=== PATIENT | male | born 1945 | race Caucasian/White ===

== ENCOUNTER → 2017-02-27 | Outpatient (REF) ==
[~2017-02-27] MED LIST: ACET50TAOT PO; ACIDTAB16 PO; AMIT25TA PO; AMLO10TA PO; AMLO10TA2 PO; ASPI1TAB PO; ATOR40TA PO; FOLI1TAB2 PO; HYDR-3713 PO; HYDR25TAB PO; LEVA500T PO; METO50TA2 PO; NICO21PAT TD; THIA100T PO; VITA400T13 PO
[2017-02-27 13:56] LABS: AMYLASE 48 U/L (25-115)
--- NOTE | 2017-02-28 02:33 | REP ---
Clinical: Left-sided chest pain. Technique: PA and lateral. Comparison: 08/22/2015. Findings: Mediastinum and cardiac silhouette are within normal limits and stable. Lung walker demonstrate chronic interstitial changes along with scattered calcified granulomata. Subtle basilar atelectasis cannot be excluded. No focal consolidation, effusion, or pneumothorax. Skeletal structures demonstrate age-related osteopenia and degenerative changes. Impression: Chronic-appearing changes. Cannot exclude trace basilar atelectasis. Signed by Thiago Bloom MD 02/28/2017 02:24 A
== END ==
LOC: M RAD 12:38
PROVIDERS: ATTEND Nurse Practitioner Family
DX: R10.12 Left upper quadrant pain (principal)

== ENCOUNTER → 2018-07-11 | Outpatient (CLI) | payer OTHER, MEDICARE | LOC: M CARPUL 09:36 | DX: R01.1 Cardiac murmur, unspecified (principal) | CPT/HCPCS: 93306 ==

== ENCOUNTER 2019-07-20 11:54 | Inpatient (IN) | payer OTHER, MEDICARE ==
[~2019-07-20] VITALS: Ht 172.7 cm; Wt 55.5 kg
[~2019-07-20 11:54] MED LIST changes: +ACET500T15 PO; -ACET50TAOT PO; -ACIDTAB16 PO; +ACIDTAB7 PO; -AMLO10TA2 PO; +AMLO10TA5 PO; -ASPI1TAB PO; +ASPI81TA26 PO; -ATOR40TA PO; +ATOR40TA75 PO; +FOLI1TAB11 PO; -FOLI1TAB2 PO; +HYDR-2541 PO; -HYDR25TAB PO; +LEVA1TAB2 PO; -LEVA500T PO; -METO50TA2 PO; +METO50TA7 PO; +NICO21DI3 TD; -NICO21PAT TD; -THIA100T PO; +THIA100T7 PO
[2019-07-20] MEDS ORDERED: NS 1,000 ML IV ONE (13:00)
[2019-07-20] MEDS ORDERED: dexameTHASONE 20 MG/5 ML VIAL (J1100) IV ONE (13:00)
[2019-07-20] MEDS ORDERED: IPRATROPIUM 0.5MG/ALBUTEROL 2.5MG INH SOL UD 3ML (DUONEB)(J7620) NEB ONE (13:00)
[2019-07-20] MEDS ORDERED: ALBUTEROL SULFATE 2.5 MG/0.5 ML INH NEB SOLN INH ONE (13:00)
[2019-07-20 13:19] LABS: ALBUMIN 2.9 GM/DL (3.2-5.2); BILIRUBIN,DIRECT 0.2 MG/DL (0.0-0.2); BILIRUBIN,TOTAL 0.6 MG/DL (0.2-1.0); C REACTIVE PROTEIN QUANTITATIV 7.14 MG/DL (0.00-0.30); CK-MB VALUE MASS 7.3 NG/ML (<3.6); MAGNESIUM LEVEL 1.8 MG/DL (1.8-2.4); MB/CK RELATIVE INDEX 5.66 (< OR =4); THYROID STIMULATING HORMONE 0.908 uIU/ML (0.358-3.740); TROPONIN I 0.11 NG/ML (< 0.10)
[2019-07-20 13:21] LABS: INR 1.12; PROTHROMBIN TIME 14.1 SECONDS (11.8-14.0)
[2019-07-20 13:22] LABS: PARTIAL THROMBOPLASTIN TIME 43.2 SECONDS (25.0-38.4)
[2019-07-20] MEDS ORDERED: ISOVUE-370 76% 100ML VIAL (Q9967) As Ordered ONE (13:43)
--- NOTE | 2019-07-20 14:01 | REP ---
CHEST, SINGLE VIEW: Single view of the chest is performed. COMPARISON: 02/27/2017. There is mild elevation of the left hemidiaphragm. There is a mass density in the left apex approximately 6 cm in diameter. Otherwise no infiltrate is seen in either lung. Heart is upper limits of normal in size. There is calcification of the thoracic aorta. IMPRESSION: Large left apical mass. Electronically Signed by Marcelo Diallo MD 07/20/2019 06:04 P
--- NOTE | 2019-07-20 14:04 | ECGEPIP ---
[facility] - ED Test Date: 2019-07-20 Pat Name: KEELY STALLINGS Department: Room: - Gender: Male Hims Clerk: PMO : 1945 Requested By: FORTUNATO Lozano Order Number: [id number] Reading MD: Luna Moreira Measurements Intervals [place] Rate: 113 P: [place]: 0 QRS: 216 QRSD: 160 T: 31 QT: 388 QTc: 534 Interpretive Statements SINUS TACHYCARDIA MARKED RIGHT AXIS DEVIATION RIGHT BUNDLE BRANCH BLOCK NEW 08/23/15 CLINICAL CORRELATION POSSIBLE SEPTAL MYOCARDIAL INFARCTION, OF INDETERMINATE AGE Electronically Signed on 07-20-2019 14:03:52 EDT by Luna Moreira
[2019-07-20] MEDS ORDERED: NORCO, ANEXSIA 5/325MG TABLET (HYDROcodone/ACETAMINOPHEN) PO ONE (14:15)
--- NOTE | 2019-07-20 14:50 | REP ---
CT ANGIOGRAM CHEST: TECHNIQUE: Axial contrast enhanced images from the thoracic inlet to the upper abdomen using 100 mL Isovue 370 intravenous contrast material with multiplanar reformations. There is no CT evidence of pulmonary embolism. There is no thoracic aortic aneurysm or dissection with scattered atherosclerotic calcifications. Heart is mildly enlarged. There is no pleural or pericardial effusion. There is a mass in the left upper lobe medially which extends into the superior and posterior mediastinum. It abuts the adjacent vertebral bodies. It encases the proximal left subclavian artery. Margins are somewhat ill defined. It measures approximately 7.6 x 7.7 cm. It causes deviation of the trachea and esophagus to the right. Multiple mildly enlarged mediastinal lymph nodes are present along the aortic arch, in the pericarinal region and subcarinal region. No other parenchymal mass is seen. IMPRESSION: Left upper lobe mass approximately 7.6 cm in diameter extends into the superior and posterior mediastinum. There is abutment with the adjacent vertebral bodies of the thoracic spine and there is encasement of the proximal left subclavian artery. There is mild mediastinal adenopathy. No evidence of pulmonary embolism. Electronically Signed by Marcelo Diallo MD 07/20/2019 06:10 P
--- NOTE | 2019-07-20 14:56 | REP ---
CT ABDOMEN AND PELVIS WITH IV CONTRAST: TECHNIQUE: Axial contrast enhanced images from the lung bases to the pubic symphysis using 100 mL Isovue 370 intravenous contrast material with multiplanar reformations. No mass is seen in the liver. The gallbladder is moderately distended containing dependent density representing mild sludge or small stones. I see no evidence of gallbladder wall thickening and there is no definite biliary dilatation. The spleen and adrenals are unremarkable. Pancreas demonstrates no evidence of mass. There is left renal atrophy with a few small cysts. There is no hydronephrosis. Moderate atherosclerotic calcification is seen of the abdominal aorta with ectasia up to 2.7 cm. There are bilateral stent grafts in the common iliac arteries. There is an endoleak in the left common iliac artery. There is occlusion at the origin of the right superficial femoral artery. I see no adenopathy or free air. There is no evidence of appendicitis with a noninflamed distended appendix identified. There is mild free fluid in the pelvis. No pelvic mass is seen. There is mild sigmoid diverticulosis without acute diverticulitis. IMPRESSION: Bilateral stent grafts in the common iliac arteries with an endoleak on the left. There is occlusion of the origin of the right superficial femoral artery. Mild free fluid in the pelvis. No free air or bowel inflammation. Small amount of sludge or small stones in the gallbladder without evidence of biliary dilatation. Electronically Signed by Marcelo Diallo MD 07/20/2019 06:10 P
[2019-07-20 15:15] LABS: BASO # 0.1 10^3/uL (0.0-0.2); BASO % 0.5 % (0.0-1.0); EOS % 0.2 % (0.0-3.0); HEMATOCRIT 44.4 % (42.0-52.0); HEMOGLOBIN 13.7 g/dl (13.5-17.5); LYMPH # 0.9 10^3/uL (1.5-5.0); LYMPH % 7.3 % (24.0-44.0); MEAN CORPUSCULAR HEMOGLOBIN 27.6 pg (27.0-33.0); MEAN CORPUSCULAR HGB CONC 30.9 g/dl (32.0-36.5); MEAN CORPUSCULAR VOLUME 89.3 fl (80.0-96.0); MONO # 0.4 10^3/uL (0.0-0.8); PLATELET COUNT, AUTOMATED 202 10^3/uL (150-450); RED BLOOD COUNT 4.97 10^6/uL (4.30-6.10); WHITE BLOOD COUNT 12.5 10^3/uL (4.0-10.0)
[2019-07-20] MEDS ORDERED: DIGOXIN INJ 0.5 MG/2 ML AMP (J1160) IV ONE (16:15)
[2019-07-20] MEDS ORDERED: PROBCAP14 PO (16:59)
[2019-07-20] MEDS ORDERED: VENTAER INH (16:59)
[2019-07-20] MEDS ORDERED: D-40TAB2 PO ×2 (16:59)
[2019-07-20] MEDS ORDERED: ATOR80TA59 PO (16:59)
[2019-07-20] MEDS ORDERED: HYDR-4514 PO (17:01)
[2019-07-20] MEDS ORDERED: AMLO5TAB6 PO (17:05)
[2019-07-20] MEDS ORDERED: HEPARIN SOD (PORCINE) 5000 UNITS/ML VIAL IV PRN (17:15)
[2019-07-20] MEDS ORDERED: HEPARIN DRIP 25,000 UNITS in IV 1 EA IV SCH (17:15)
[2019-07-20] MEDS ORDERED: IPRATROPIUM 0.5MG/ALBUTEROL 2.5MG INH SOL UD 3ML (DUONEB)(J7620) NEB PRN (17:15)
[2019-07-20] MEDS ORDERED: HEPARIN SOD (PORCINE) 5000 UNITS/ML VIAL IV ONE (18:00)
[2019-07-20 18:32] LABS: HEMOGLOBIN A1c 5.6 %
[2019-07-20 18:47] LABS: CHOLESTEROL RISK RATIO 5.644 (<5); CK-MB VALUE MASS 9.6 NG/ML (<3.6); MB/CK RELATIVE INDEX 6.58 (< OR =4); THYROID STIMULATING HORMONE 0.447 uIU/ML (0.358-3.740); TROPONIN I 0.3 NG/ML (< 0.10)
[2019-07-20] MEDS ORDERED: HYDROcodone/APAP LIQUID 7.5-325MG 15ML UDC (LORTAB ELIXIR) PO PRN (20:45)
[2019-07-20 21:05] LABS: AMORPHOUS SEDIMENT SMALL (NEGATIVE); APPEARANCE, URINE CLEAR (CLEAR); BACTERIA, URINE AUTO NEGATIVE (NEGATIVE); BILIRUBIN, URINE AUTO NEGATIVE (NEGATIVE); BLOOD, URINE BLOOD 3+ (NEGATIVE); COLOR, URINE YELLOW (YELLOW); GLUCOSE, URINE (UA) AUTO NEGATIVE (NEGATIVE); KETONE, URINE AUTO 1+ mg/dL (NEGATIVE); LEUKOCYTE ESTERASE, URINE AUTO TRACE (NEGATIVE); NITRITE, URINE AUTO NEGATIVE (NEGATIVE); PROTEIN, URINE AUTO 1+ mg/dL (NEGATIVE); RBC, URINE AUTO 40 /HPF (0-3); SPECIFIC GRAVITY URINE AUTO 1.057 (1.002-1.035); SQUAMOUS EPITHELIAL CELL UR AU 1 /HPF (0-6); UROBILINOGEN, URINE AUTO 0.2 mg/dL (0.0-2.0); WBC, URINE AUTO 13 /HPF (0-3)
[2019-07-20] MEDS: ANEXSIA, NORCO 7.5MG/325MG TABLET(HYDROCODONE/APAP) PO PRN (21:16)
--- NOTE | 2019-07-20 21:41 | HPEPDOC ---
[facility] Medical History & Physical Date of Admission Jul 20, 2019 Date of Service: Jul 20, 2019 History and Physical CHIEF COMPLAINT: [sob ] HISTORY OF PRESENT ILLNESS: [This is a 73 yo male with pmhx of copd, and htn who presented to the ed for pain in multiple areas, including chest, left shoulder, left knee, and abd pain. Patient said he has not been feeling well for couple weeks but could not get an apt with the [place] clinic so he came in today. He also mentioned felling some palpitations, had intermittent NBNB vomiting and been spitting up, as well as chills but no fever, constipation or diarrhea ] PAST MEDICAL HISTORY: 1. [copd]. 2. [htn]. 3. 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 ckd 5. alcoholic liver problem 6. heart murmur PAST SURGICAL HISTORY: 1. [right bka ]. 2. [right inguinal hernia repair ]. SOCIAL HISTORY: current smoker - used to smoke a lot more, but now only smokes 1-1 1/2 ppd for 63yrs stopped drinking etoh for a few years now denied drug use lives with his girlfriend retired FAMILY HISTORY: extensive cardiac history among all family members including parents ALLERGIES: Please see below. HOME MEDICATIONS: Please see below. LABORATORY DATA: See below. IMAGING: MICROBIOLOGY: Please see below. ROS - all 10 point review of system is negative except for whats listed in HPI Physical exam Gen: NAD, poor hygiene HEENT: normocephalic, atraumatic, no discharge from ears or nose, no oropharyngeal erythema or exudate, neck is supple, no lymphadenopathy, trachea midline CVS: RRR, normal S1n S2, no murmur, rubs, or gallops, no edema, no jvd Resp: poor air movement, no rhonchi, wheezes or crackles Abd : soft nontender, normal bowel sounds, no rebound tenderness or guarding MSK: right bka, left pedal edema, full range of motion, strength 5/5 Neuro: AOAx3, no confusion, no focal deficit Psych: normal mood and affect, good judgment ASSESSMENT and plan new onset aflutter s/p dig in ed c/w po cardizem adjust dose for heart control hold metoprolol for copd exacerbation started on heparin drip for AC - HIGH CHADS SCORE f/u echo consider cardio consult in AM Chest pain elevated troponin and ckd possibly demand ischemia from tachycardia repeat troponin mildly increased from previous f/u 3rd level prn oxygen aspirin daily elevated lipid- will start high dose statin f/u hba1c prn pain meds f/u echo Lung mass f/u IR guided biopsy high risk for malignancy HTN C/W CARDIZEM for now dvt ppx full code, from home Vital Signs Vital Signs Date Time Temp Pulse Resp B/P (MAP) Pulse Ox O2 Delivery O2 Flow Rate FiO2 07/20/19 16:45 117 22 95 Room Air 07/20/19 14:45 142/66 (91) 07/20/19 11:55 98.4 Laboratory Data Labs 24H Laboratory Tests 2 07/20/19 12:25: Prothrombin Time 14.1H, Prothromb Time International Ratio 1.12, Activated Partial Thromboplast Time 43.2H, Lactic Acid Level 3.1*H, Magnesium Level 1.8, Aspartate Amino Transf (AST/SGOT) 22, Alanine Aminotransferase (ALT/SGPT) 7L, Alkaline Phosphatase 75, Total Bilirubin 0.6, Direct Bilirubin 0.2, Total Creati ne Kinase 129, Creatine Kinase MB 7.3H, Creatine Kinase MB Relative Index 5.66H, Troponin I 0.11H, C-Reactive Protein, Quantitative 7.14H, LV-Uvh-N-Type Natriuretic Peptide 89237G, Total Protein 8.0, Albumin 2.9L, Albumin/Globulin Ratio 0.57L, Thyroid Stimulating Hormone (TSH) 0.908 07/20/19 13:03: POC Glucose (Misc Panel) 90, POC Sodium (Misc Panel) 136, POC Potassium (Misc P doreen) 4.1, POC Chloride (Misc Panel) 101, POC Total CO2 (Misc Panel) 26.0, POC Blood Urea Nitrogen (Misc Panel 25, POC Ionized Calcium (Misc Panel) 5.1, POC Creatinine (Misc Panel) 0.9, POC Hematocrit (Misc Panel) 44.0 07/20/19 13:08: POC Total CO2 (Misc Panel) 25.0, POC pH (Misc Panel) 7.382, POC Base Excess (Misc Panel) -2.0, POC Saturated Percent O2 (Misc) 91L, POC pO2 (Misc Panel) 62.0L, POC pCO2 (Misc Panel) 39.3, POC HCO3 (Misc Panel) 23.4 07/20/19 15:09: Immature Granulocyte % (Auto) 1.0, White Blood Count 12.5H, Red Blood Count 4.97, Hemoglobin 13.7, Hematocrit 44.4, Mean Corpuscular Volume 89.3, Mean Corpuscular Hemoglobin 27.6, Mean Corpuscular Hemoglobin Concent 30.9L, Red Cell Distribution Width 19.1H, Platelet Count 202, Neutrophils (%) (Auto) 88.0H, Lymphocytes (%) (Auto) 7.3L, Monocytes (%) (Auto) 3.0, Eosinophils (%) (Auto) 0.2, Basophils (%) (Auto) 0.5, Neutrophils # (Auto) 11.0H, Lymphocytes # (Auto) 0.9L, Monocytes # (Auto) 0.4, Eosinophils # (Auto) 0.0, Basophils # (Auto) 0.1, Nucleated Red Blood Cells % (auto) 0.0 CBC/BMP Laboratory Tests 07/20/19 15:09 Red Blood Count 4.97, Mean Corpuscular Volume 89.3, Mean Corpuscular Hemoglobin 27.6, Mean Corpuscular Hemoglobin Concent 30.9 L, Red Cell Distribution Width 19.1 H, Neutrophils (%) (Auto) 88.0 H, Lymphocytes (%) (Auto) 7.3 L, Monocytes (%) (Auto) 3.0, Eosinophils (%) (Auto) 0.2, Basophils (%) (Auto) 0.5, Neutrophils # (Auto) 11.0 H, Lymphocytes # (Auto) 0.9 L, Monocytes # (Auto) 0.4, Eosinophils # (Auto) 0.0, Basophils # (Auto) 0.1 Microbiology Microbiology 07/20/19 Blood Culture, Received Pending 07/20/19 Blood Culture, Received Pending 07/20/19 Respiratory Virus Panel (PCR) (ILANA) - Final, Complete 07/20/19 Gram Stain - Final, Complete 07/20/19 Sputum Culture - Final, Complete Home Medications Scheduled Amlodipine Besylate (Amlodipine Besylate) 5 Mg Tablet, 5 MG PO DAILY Aspirin (Aspirin EC) 81 Mg Tab, 81 MG PO QAM Atorvastatin Calcium (Atorvastatin Calcium) 80 Mg Tablet, 80 MG PO QHS Cholecalciferol (Vitamin D3) (Vitamin D-400) 400 Unit Tablet, 800 UNIT PO DAILY Cholecalciferol (Vitamin D3) (Vitamin D-400) 400 Unit Tablet, 400 UNIT PO QPM Folic Acid (Folic Acid) 1 Mg Tab, 2 MG PO DAILY Lactobacillus Acidophilus (Probiotic) 1 Each Capsule, 1 CAP PO BID Metoprolol Tartrate (Metoprolol Tartrate) 50 Mg Tab, 50 MG PO BID Thiamine HCl (Thiamine HCl) 100 Mg Tab, 100 MG PO DAILY Scheduled PRN Acetaminophen (Acetaminophen) 500 Mg Tab, 500 MG PO Q6H PRN for PAIN SCALE 1-5 Albuterol Sulfate (Ventolin Hfa) 18 Gm Hfa.aer.ad, 2 PUFF INH Q4H PRN for wheezing Hydrocodone/Acetaminophen (Hydrocodone-Acetamin 7.5-325) 1 Each Tablet, 1 TAB PO 5XD PRN for PAIN PT HAS A SCRIPT FOR 10-325 Q6H THAT THEY HAVE NOT STARTED Allergies Coded Allergies: oxycodone (Verified Allergy, Unknown, 07/20/19) A-FIB/CHADSVASC A-FIB History Current/History of A-Fib/PAF?: Yes Current PO Anticoag Therapy: Yes Age/Risk Factor Scoring CHADSVASC: CHADSVASC Response (Comments) Value Age Risk Factor Age >/= 75 years old 2 Gender Risk Factor Male 0 Hx of CHF No 0 Hx of HTN Yes 1 Hx of Stroke/TIA/or VTE No 0 Hx of Diabetes Yes 1 Hx of Vascular Disease No 0 Total 4 Treatment Treatment ordered: Heparin IV bridge Therapy TADEO IRIZARRY MD Jul 20, 2019 17:15
[2019-07-20 21:44] LABS: AMPHETAMINES LEVEL URINE NEGATIVE (NEGATIVE); BARBITURATES URINE NEGATIVE (NEGATIVE); BENZODIAZEPINES URINE NEGATIVE (NEGATIVE); CANNABINOIDS URINE NEGATIVE (NEGATIVE); COCAINE METABOLITE URINE NEGATIVE (NEGATIVE); METHADONE URINE NEGATIVE (NEGATIVE); OPIATES URINE POSITIVE (NEGATIVE); PHENCYCLIDINE URINE NEGATIVE (NEGATIVE)
[2019-07-20 21:50] VITALS: BP 153/71
[2019-07-20] MEDS: DOCUSATE SODIUM 100 MG CAP PO SCH (22:58)
[2019-07-20] MEDS: ATORVASTATIN 20 MG TAB PO SCH (22:58)
[2019-07-21] VITALS: BP 144/69
[2019-07-21] MEDS: ACETAMINOPHEN TAB 650MG DOSE (2X325MG) PO PRN ×2 (01:22→20:11)
[2019-07-21] MEDS: ANEXSIA, NORCO 7.5MG/325MG TABLET(HYDROCODONE/APAP) PO PRN ×4 (03:55→21:54)
[2019-07-21 04:00] VITALS: BP 169/77
[2019-07-21] MEDS ORDERED: MOM 30ML SUSPENSION UDC PO PRN (04:15)
[2019-07-21 07:12] LABS: HEMATOCRIT 40.2 % (42.0-52.0); HEMOGLOBIN 12.9 g/dl (13.5-17.5); MEAN CORPUSCULAR HEMOGLOBIN 27.7 pg (27.0-33.0); MEAN CORPUSCULAR HGB CONC 32.1 g/dl (32.0-36.5); MEAN CORPUSCULAR VOLUME 86.3 fl (80.0-96.0); PLATELET COUNT, AUTOMATED 202 10^3/uL (150-450); RED BLOOD COUNT 4.66 10^6/uL (4.30-6.10); WHITE BLOOD COUNT 6.8 10^3/uL (4.0-10.0)
[2019-07-21 07:48] LABS: BLOOD UREA NITROGEN 20 MG/DL (7-18); CALCIUM LEVEL 9.6 MG/DL (8.8-10.2); CARBON DIOXIDE LEVEL 27 MEQ/L (21-32); CHLORIDE LEVEL 98 MEQ/L (98-107); CK-MB VALUE MASS 9.6 NG/ML (<3.6); CPK CREATINE PHOSPHOKINASE 93 U/L (39-308); CREATININE FOR GFR 0.94 MG/DL (0.70-1.30); GLOMERULAR FILTRATION RATE > 60.0 (>42); GLUCOSE, FASTING 122 MG/DL (70-100); MAGNESIUM LEVEL 1.9 MG/DL (1.8-2.4); MB/CK RELATIVE INDEX 10.32 (< OR =4); POTASSIUM SERUM 4.2 MEQ/L (3.5-5.1); SODIUM LEVEL 137 MEQ/L (136-145); TROPONIN I 0.88 NG/ML (< 0.10)
[2019-07-21 08:00] VITALS: BP 142/68
[2019-07-21] MEDS ORDERED: amLODIPine 5 MG TAB PO SCH (09:00)
[2019-07-21] MEDS: FOLIC ACID 1 MG TAB PO SCH (09:40)
[2019-07-21] MEDS: DOCUSATE SODIUM 100 MG CAP PO SCH ×2 (09:41→20:12)
[2019-07-21] MEDS: ASPIRIN 81 MG ENTERIC TAB PO SCH (09:41)
[2019-07-21] MEDS: THIAMINE 100 MG TAB PO SCH (09:41)
[2019-07-21 12:00] VITALS: BP 138/74
[2019-07-21] MEDS ORDERED: IPRATROPIUM 0.5MG/ALBUTEROL 2.5MG INH SOL UD 3ML (DUONEB)(J7620) NEB PRN (14:30)
--- NOTE | 2019-07-21 14:56 | CR ---
DATE OF CONSULTATION: 07/21/2019 Pulmonary team was consulted on Lei Gao. Mr. Gao is a 73-year-old male who presented to the emergency department yesterday with chest pain. The patient was admitted for atrial flutter with rapid ventricular response (RVR) and was found to have a large left upper lobe lesion. We were consulted by the medicine team due to the patient's left upper lobe mass and concern for malignancy. The patient reports that he has had chest pain and dyspnea for about 6 months and had been waiting to followup with his primary care provider. However, he states the pain got so bad yesterday that he was concerned he was dying and, therefore, went to the emergency department at [facility] for evaluation and treatment. The patient follows with the [facility] He states that his pain and shortness of breath have been ongoing for many months but have been progressively worsening. He denies any definite fevers but states he sometimes feels warm. Denies any chills or shaking chills. He states he has lost about 20 pounds in the last year and believes that he has been losing weight over the last couple years. He states his voice has been hoarse for the last week or so. He has a long history of cough but states it has been worse over the last 2 weeks and has been productive of clear sputum. He denies any hemoptysis. The patient states that his appetite has been decreased, and he states he has had some difficulty swallowing for at least the last few weeks. The patient does have a significant history of smoking and states he has been smoking for 65 years and on average had smoked about four packs a day for most of the time he has been smoking. However, he has decreased to a pack a day for the last 3 years or so. The patient states he has a history of alcohol abuse but stop drinking 10 years ago. He does have a history of cancer of the tongue and states that he had surgical repair of the tongue but denies any history of chemotherapy or radiation therapy to the tongue. The patient states that he believes he was diagnosed with chronic obstructive pulmonary disease (COPD) at some point but states he is not on any regular medication for that. He believes he has an inhaler at home but does not use it much. The patient states he generally is bed-bound and does not ambulate much. He did have a right below-knee amputation (BKA) done about 8 years ago due to vascular disease, which he states was caused by his smoking. He does have some subcutaneous nodules on his back but states they have been there for many many years. He currently is being treated for the atrial flutter with RVR and an elevated troponin. He is currently being anticoagulated with heparin. He is on Cardizem. His metoprolol tartrate that he had been on as an outpatient was held because of his breathing. He is getting DuoNebs, and he states he feels his breathing is a little better since he came into the hospital. REVIEW OF SYSTEMS: The patient denies fevers, chills, night sweats. He does state that he has had a weight loss of about 20 pounds over the last year. He states his appetite has been decreased, and he does note some difficulty swallowing. HEENT: The patient does note some occasional dizziness. Denies nosebleeds. Does note some difficulty swallowing and hoarseness. Cardiac: The patient is currently being worked up for chest pain. Pulmonary: The patient notes dyspnea and cough. He does state that it is more difficult to breathe when he lays flat. Gastrointestinal (GI): States that he has had some nausea. Denies vomiting. Denies hematemesis. Denies any current abdominal pain. Has had a history of an inguinal hernia repair and does note an umbilical hernia. He denies any constipation and diarrhea. Denies any bright red blood per rectum. Genitourinary (): The patient denies any dysuria or hematuria. Denies any history of kidney stones. Endocrine: Denies any hot or cold intolerance. Hematological: Denies any bleeding disorders. Musculoskeletal: The patient notes weakness. He is status post right BKA. Does note swelling in his distal left lower extremity. SOCIAL HISTORY: The patient smoked for 65 years with smoking up to four packs a day for a significant period of time. However, has been smoking a pack a day for the last 3 years. He has a history of alcoholism but stopped drinking 10 years ago. He lives with a girlfriend. FAMILY MEDICAL HISTORY: The patient reports family members with coronary artery disease. He denies any known family history of lung cancer. ALLERGIES: To OXYCODONE. MEDICATIONS: Home medications: - amlodipine 5 mg by mouth daily - aspirin 81 mg by mouth daily - Lipitor 8 mg by mouth daily - vitamin D daily - folic acid daily - metoprolol tartrate 50 mg by mouth twice a day - thiamine Inpatient medications: - acetaminophen 650 mg by mouth every 4 h rs as needed - Colace 100 mg by mouth twice a day - Cardizem 60 mg by mouth every 6 hours - DuoNebs every 4 hours as needed - heparin per protocol - aspirin 81 mg by mouth daily - Lipitor 80 mg nightly - folic acid 2 mg daily - thiamine 100 mg daily - hydrocodone every 6 hours as needed pain - milk of magnesia daily as needed constipation - tramadol 50 mg every 8 hours as needed pain PHYSICAL EXAMINATION: Vital signs: Temperature 98.1, pulse of 70, respiratory rate 17, blood pressure is 142/68, pulse oximetry 95% on room air. General: The patient is alert and oriented. He does speak in complete sentences. His voice is somewhat hoarse. HEENT: Head is normocephalic, atraumatic. Eyes are anicteric, nonsclerotic. Oropharynx: The patient is edentulous. No posterior pharyngeal cobblestoning. Mallampati 1. Tongue is midline. Neck: Neck is supple. No cervical lymphadenopathy. No jugular venous distention (JVD). Pulmonary: Diminished breath sounds, more so on the left. Wheezing and rhonchi throughout all walker. No accessory muscle use. Cardiac: Regular rate and rhythm. S1, S2. No obvious murmurs. Abdomen: Positive bowel sounds, soft, nontender. No rebound or guarding. Umbilical hernia appreciated. No obvious hepatosplenomegaly. Extremities: The patient has a right BKA. Left distal lower extremity with swelling at the foot to about the ankle. Skin: The patient has several subcutaneous nodules on his posterior back measuring between 2-3 cm, which are firm and mobile. Skin is otherwise warm and dry. Lymphatic: No cervical lymphadenopathy. No axillary lymphadenopathy. Neurologic: Nonfocal grossly. LABORATORIES: WBC 6.8, hemoglobin 12.9, hematocrit 40.2, platelets 202. Sodium is 137, potassium is 4.2, chloride 98, carbon dioxide is 27, BUN 20, creatinine 0.94, glucose 122, calcium 9.6, magnesium 1.9, CK 93, CK-MB 9.6, CK-MB relative index is 10.32, troponin I is 0.88. PTT is 62.6. IMAGING: CT of the chest done 07/20/2019 shows a large left upper lobe mass extending into the mediastinum and measuring about 7.5 cm. There is some periaortic lymphadenopathy. There is mild subcarinal lymphadenopathy. There is encasement of the left subclavian artery. There is some shifting of the trachea and upper mediastinum to the right from midline. ASSESSMENT AND PLAN: Left upper lobe mass. Concerning for malignancy. Dr. Rivas had a long conversation with the patient about the left lung mass and our concern for malignancy. We discussed options for biopsy and would offer bronchoscopy. The patient was told of the risks and benefits of bronchoscopy and states he wants to proceed with bronchoscopy. Dr. Rivas proposes bronchoscopy with endobronchial ultrasound. Currently, the patient is on heparin, and heparin would need to be turned off prior to procedure. With the patient's troponin levels still elevated, would hold off on bronchoscopy for a couple more days and try to plan for bronchoscopy on . Dr. Rivas has spoken to the medical attending about this plan. We will continue to follow the troponin levels and watch these closely. Plan for bronchoscopy with endobronchial ultrasound on . The patient will need to be nothing by mouth after midnight. The patient currently has orders for as-needed nebulizers. We will change this to scheduled nebulizers. Additionally, while we are waiting for bronchoscopy, we will order sputum for cytology to see if we are able to picker and sorter load and unload any possible cancer cells with a sputum cytology. Furthermore, the patient is currently on an as-needed DuoNebs. I am going to place him on scheduled DuoNebs every 4 hours with as-needed DuoNebs every 2 hours. Will continue to follow along with this patient.
[2019-07-21] MEDS: traMADol 50 MG TAB PO PRN (15:09)
[2019-07-21 16:00] VITALS: BP_SYST 133; BP_SYST 148; BP_DIAS 70; BP_DIAS 74
[2019-07-21] MEDS: IPRATROPIUM 0.5MG/ALBUTEROL 2.5MG INH SOL UD 3ML (DUONEB)(J7620) NEB SCH ×3 (16:10→22:51)
--- NOTE | 2019-07-21 17:59 | IPNPDOC ---
Text Note Date of Service The patient was seen on 07/21/19. NOTE Subjective: Patient continues to complain of left and the right chest pain with no radiation, diffuse abdominal pain, legs pain. Also patient complains of shortness of breath. Patient denied fever, chills, nausea, vomiting, shortness of breath, diarrhea or dysuria Objective: HEENT: Cachectic male CVS: S1-S2, regular rhythm Resp: Coarse lung sounds bilaterally Abd : soft nontender, normal bowel sounds, no rebound tenderness or guarding MSK: right bka Neuro: AOAx3, no confusion, no focal deficit Psych: Moves all 4 limbs, no nuchal rigidity Patient is 73 years old male with past medical history of COPD, hypertension presented hospital with chest, left shoulder, left knee, and abdominal pain. Patient was found to have atrial flutter, he received diltiazem drip, his heart rate was converted to sinus. Also patient was found to have upper left lung mass consistent with possible malignancy Atrial flutter Resolved Will switch off heparin drip to lovenox Rate controlled Continue diltiazem by mouth, we will hold beta blockers due to COPD exacerbation Chest pain Most likely demand ischemia Troponin trended down EKG did not show acute ischemic changes Left lung mass Most likely lung cancer Dr. Rivas planed bronchoscopy with endobronchial ultrasound on Sputum cytology COPD In exacerbation Patient has coarse lung sounds, patient does not have leukocytosis. We'll hold antibiotics for now DuoNeb [id number] Prednisone 40 mg VS,Fishbone, I+O VS, Fishbone, I+O Laboratory Tests 07/21/19 06:52 Red Blood Count 4.66, Mean Corpuscular Volume 86.3, Mean Corpuscular Hemoglobin 27.7, Mean Corpuscular Hemoglobin Concent 32.1, Red Cell Distribution Width 18.9 H, Calcium Level 9.6, Total Creatine Kinase 93 Vital Signs Date Time Temp Pulse Resp B/P (MAP) Pulse Ox O2 Delivery O2 Flow Rate FiO2 07/21/19 16:27 20 07/21/19 12:58 70 142/68 07/21/19 12:00 98.1 95 07/20/19 16:45 Room Air I&O- Last 24 Hours up to 6 AM 07/21/19 05:59 Intake Total 97 ml Output Total 300 ml Balance -203 ml DROZHZHIN,JENNIFER DO Jul 21, 2019 17:59
[2019-07-21 20:00] VITALS: BP 144/67
[2019-07-21] MEDS: ENOXAPARIN 100MG/1ML SYRINGE (J1650) SC SCH (20:11)
[2019-07-21] MEDS: ATORVASTATIN 20 MG TAB PO SCH (20:12)
--- NOTE | 2019-07-21 20:14 | ECGEPIP ---
[facility] Test Date: 2019-07-21 Pat Name: KEELY STALLINGS Department: Room: [place] [address] Gender: Male Child Support Case Officer: : 1945 Requested By: JENNIFER JAMESON Order Number: [id number] Reading MD: Stevie Daniel Measurements Intervals [place] Rate: 79 P: 56 [place]: 138 QRS: 227 QRSD: 169 T: 24 QT: 425 QTc: 489 Interpretive Statements Normal sinus rhythm Right axis deviation Right bundle branch block Compared to prior tracing of 07/20/2019, heart rate is slower Electronically Signed on 07-21-2019 20:14:32 EDT by Stevie Daniel
[2019-07-21 23:21] LABS: BLOOD UREA NITROGEN 19 MG/DL (7-18); CALCIUM LEVEL 9.8 MG/DL (8.8-10.2); CARBON DIOXIDE LEVEL 29 MEQ/L (21-32); CHLORIDE LEVEL 98 MEQ/L (98-107); CREATININE FOR GFR 0.91 MG/DL (0.70-1.30); GLOMERULAR FILTRATION RATE > 60.0 (>42); GLUCOSE, FASTING 101 MG/DL (70-100); MAGNESIUM LEVEL 1.8 MG/DL (1.8-2.4); POTASSIUM SERUM 3.6 MEQ/L (3.5-5.1); SODIUM LEVEL 136 MEQ/L (136-145)
[2019-07-22] VITALS: BP 142/63
[2019-07-22] MEDS: IPRATROPIUM 0.5MG/ALBUTEROL 2.5MG INH SOL UD 3ML (DUONEB)(J7620) NEB SCH ×6 (03:36→23:03)
[2019-07-22 04:00] VITALS: BP 172/75
[2019-07-22] MEDS: ANEXSIA, NORCO 7.5MG/325MG TABLET(HYDROCODONE/APAP) PO PRN ×4 (04:33→21:39)
[2019-07-22 05:39] LABS: BASO % 0.1 % (0.0-1.0); EOS # 0.1 10^3/uL (0.0-0.5); EOS % 0.6 % (0.0-3.0); HEMATOCRIT 39.2 % (42.0-52.0); HEMOGLOBIN 12.6 g/dl (13.5-17.5); LYMPH # 1.3 10^3/uL (1.5-5.0); LYMPH % 10.3 % (24.0-44.0); MEAN CORPUSCULAR HEMOGLOBIN 27.6 pg (27.0-33.0); MEAN CORPUSCULAR HGB CONC 32.1 g/dl (32.0-36.5); MONO # 1.4 10^3/uL (0.0-0.8); MONO % 11.3 % (0.0-5.0); NEUTROPHILS # 9.5 10^3/uL (1.5-8.5); NEUTROPHILS % 77.1 % (36.0-66.0); PLATELET COUNT, AUTOMATED 198 10^3/uL (150-450); RED BLOOD COUNT 4.56 10^6/uL (4.30-6.10); WHITE BLOOD COUNT 12.3 10^3/uL (4.0-10.0)
[2019-07-22 05:57] LABS: BLOOD UREA NITROGEN 16 MG/DL (7-18); CALCIUM LEVEL 9.5 MG/DL (8.8-10.2); CARBON DIOXIDE LEVEL 27 MEQ/L (21-32); CHLORIDE LEVEL 99 MEQ/L (98-107); CREATININE FOR GFR 0.85 MG/DL (0.70-1.30); GLOMERULAR FILTRATION RATE > 60.0 (>42); GLUCOSE, FASTING 95 MG/DL (70-100); POTASSIUM SERUM 3.2 MEQ/L (3.5-5.1); SODIUM LEVEL 135 MEQ/L (136-145)
[2019-07-22 08:00] VITALS: BP 164/70
[2019-07-22] MEDS ORDERED: POTASSIUM CHLORIDE 10 MEQ SR TABLET PO ONE (08:00)
[2019-07-22] MEDS: ASPIRIN 81 MG ENTERIC TAB PO SCH (08:40)
[2019-07-22] MEDS: traMADol 50 MG TAB PO PRN ×2 (08:41→19:05)
[2019-07-22] MEDS: FOLIC ACID 1 MG TAB PO SCH (08:41)
[2019-07-22] MEDS: THIAMINE 100 MG TAB PO SCH (08:41)
[2019-07-22] MEDS: predniSONE 20 MG TAB PO SCH (08:42)
[2019-07-22] MEDS: DOCUSATE SODIUM 100 MG CAP PO SCH ×2 (08:42→21:36)
[2019-07-22] MEDS ORDERED: FLUBLOK(EGG FREE)(QUAD)INFLUENZA VACC 0.5ML SYRINGE (90682)18YRS&OLDER IM ONE (09:00)
--- NOTE | 2019-07-22 10:52 | IPN ---
DATE OF SERVICE: 07/20/2019 Mr. Gao states he is feeling better today. He has less shortness of breath, less chest discomfort. Heart rate is controlled with a rate of 76. He states he normally takes his pain medications every 4 hours (rather than every 6). He is nonambulatory, as he states he is not allowed to put pressure on his left leg, and he has a right above-knee amputation (AKA). No significant cough. No fever or chills overnight. Vital signs: Temperature is 98.1, pulse is 76, respiratory rate is 26, blood pressure is 164/70, with a mean arterial pressure of 101, oxygen saturation 97% on room air. Intake and output (I and O): 1149 in and 950 out. Balance is 199. General: The patient is awake, alert, and oriented. Affect and mood are appropriate. Nutrition and hygiene are good. Speech is clear, slightly marbled due to speech slightly hoarse. Neck: Supple. No tracheal deviation. HEENT: Sclerae clear, anicteric. Pupils equal and reactive to light. Mucous membranes are moist. Tongue is midline. Neck is supple. No tracheal deviation or mass. Lymph: No cervical, supraclavicular, or axillary adenopathy. Cardiac: Irregularly irregular, S1, S2, without audible murmur, rub, or gallop. No elevated jugular venous pressure (JVP). No systemic edema. Pulmonary: Decreased breath sounds throughout all lung walker without rales, rhonchi, or wheezes. There is prolongation of expiratory phase. No accessory muscle use. Abdomen: Soft, nontender, nondistended, no hepatosplenomegaly. No masses or hernia. Extremities: No cyanosis or clubbing on the left. Decreased dorsalis pedis posterior tib on the left. AKA on the right. LABORATORY EVALUATION: Shows a white blood cell count of 12.3, hemoglobin 12.6, hematocrit of 39.2, platelet count of 198. Chemistry is sodium is 139, potassium is 3.2, BUN is 16, creatinine of 0.85. PTT is 69.9. No new imaging. IMPRESSION: A 73-year-old male with lung mass. I consented him yesterday. He was advised of the risks and benefits of the procedure of bronchoscopy with endobronchial ultrasound. This is tentative for as long as he has continued clinical improvement. His Lovenox will need to be held Sunday night. He will need to be nothing by mouth after midnight. My ultimate suspicion is this is a primary lung malignancy, possibly small cell. He expresses understanding. Currently, sputum cytology is pending. MARVIN
[2019-07-22 12:00] VITALS: BP 144/68
[2019-07-22] MEDS ORDERED: HYDROcodone/APAP LIQUID 7.5-325MG 15ML UDC (LORTAB ELIXIR) PO PRN (12:00)
[2019-07-22] MEDS ORDERED: ACETAMINOPHEN 500 MG TAB PO PRN (13:00)
[2019-07-22 14:00] VITALS: BP 142/70
[2019-07-22 20:00] VITALS: BP 146/67
--- NOTE | 2019-07-22 20:12 | IPNPDOC ---
Text Note Date of Service The patient was seen on 07/22/19. NOTE Subjective: Patient stated today that he has less shortness of breath. He has a good appetite. No any acute events overnight. Objective: HEENT: Cachectic male CVS: S1-S2, regular rhythm Resp: Coarse lung sounds bilaterally Abd : soft nontender, normal bowel sounds, no rebound tenderness or guarding MSK: right bka Neuro: AOAx3, no confusion, no focal deficit Psych: Moves all 4 limbs, no nuchal rigidity Patient is 73 years old male with past medical history of COPD, hypertension presented to the hospital with chest, left shoulder, left knee, and abdominal pain. Patient was found to have atrial flutter, he received diltiazem drip, his heart rate was converted to sinus. Also patient was found to have upper left lung mass consistent with possible malignancy Atrial flutter Resolved Continue lovenox. We'll stop Lovenox on Sunday night before bronchoscopy with biopsy Rate controlled Continue diltiazem by mouth, we will hold beta blockers due to COPD exacerbation Chest pain Most likely demand ischemia Troponin trended down EKG did not show acute ischemic changes Left lung mass Most likely lung cancer Dr. Rivas planed bronchoscopy with endobronchial ultrasound on Sputum cytology COPD In exacerbation Patient has coarse lung sounds, patient does not have leukocytosis. I'll hold antibiotics for now DuoNeb [id number]-guhsl Prednisone 40 mg VS,Fishbone, I+O VS, Fishbone, I+O Laboratory Tests 07/21/19 22:43 Calcium Level 9.8 07/22/19 05:24 Calcium Level 9.5, Red Blood Count 4.56, Mean Corpuscular Volume 86.0, Mean Corpuscular Hemoglobin 27.6, Mean Corpuscular Hemoglobin Concent 32.1, Red Cell Distribution Width 19.0 H, Neutrophils (%) (Auto) 77.1 H, Lymphocytes (%) (Auto) 10.3 L, Monocytes (%) (Auto) 11.3 H, Eosinophils (%) (Auto) 0.6, Basophils (%) (Auto) 0.1, Neutrophils # (Auto) 9.5 H, Lymphocytes # (Auto) 1.3 L, Monocytes # (Auto) 1.4 H, Eosinophils # (Auto) 0.1, Basophils # (Auto) 0.0 Vital Signs Date Time Temp Pulse Resp B/P (MAP) Pulse Ox O2 Delivery O2 Flow Rate FiO2 07/22/19 19:05 20 07/22/19 17:10 68 144/88 07/22/19 14:00 98.8 94 07/20/19 16:45 Room Air I&O- Last 24 Hours up to 6 AM 07/22/19 06:00 Intake Total 1213 ml Output Total 800 ml Balance 413 ml JENNIFER JAMESON DO Jul 22, 2019 20:12
[2019-07-22] MEDS: ATORVASTATIN 20 MG TAB PO SCH (21:37)
[2019-07-22] MEDS: ENOXAPARIN 100MG/1ML SYRINGE (J1650) SC SCH (21:39)
[2019-07-23] VITALS (7 sets, daily range): BP systolic 132–170; BP diastolic 61–74
[2019-07-23] MEDS: IPRATROPIUM 0.5MG/ALBUTEROL 2.5MG INH SOL UD 3ML (DUONEB)(J7620) NEB SCH ×5 (04:04→20:32)
[2019-07-23] MEDS: traMADol 50 MG TAB PO PRN ×3 (04:25→23:35)
[2019-07-23 06:28] LABS: BLOOD UREA NITROGEN 15 MG/DL (7-18); CALCIUM LEVEL 8.6 MG/DL (8.8-10.2); CARBON DIOXIDE LEVEL 27 MEQ/L (21-32); CHLORIDE LEVEL 95 MEQ/L (98-107); CREATININE FOR GFR 0.87 MG/DL (0.70-1.30); GLOMERULAR FILTRATION RATE > 60.0 (>42); GLUCOSE, FASTING 106 MG/DL (70-100); MAGNESIUM LEVEL 1.7 MG/DL (1.8-2.4); SODIUM LEVEL 130 MEQ/L (136-145)
[2019-07-23] MEDS: ANEXSIA, NORCO 7.5MG/325MG TABLET(HYDROCODONE/APAP) PO PRN ×4 (07:23→20:17)
--- NOTE | 2019-07-23 08:35 | CCN ---
DATE OF SERVICE: 07/23/2019 Mr. Gao is seen in the progressive care unit (PCU). He states he is slowly feeling better each day. He still does have some shortness of breath but states it is diminished compared to when he first came in. He still does have some chest pain but states that is a little bit less as well. He states he feels his appetite is getting better as well. He denies any significant fevers or chills. Nursing denies any new concerns. The patient is scheduled for bronchoscopy tomorrow. PHYSICAL EXAMINATION: Vital signs: Temperature is 98.5, pulse 95, respiratory rate 18, blood pressure 154/70. Pulse oximetry 93% on room air. General: The patient is alert and oriented times three. Mood affect are appropriate. He speaks in complete sentences, but does have some hoarseness. HEENT: Head is normocephalic, atraumatic. Moist mucous membranes. Tongue is midline. Neck: Neck is supple. No obvious cervical lymphadenopathy. No tracheal deviation. No jugular venous distention (JVD). Cardiac: Regular rate and rhythm. S1, S2. No murmur. Pulmonary: Diminished breath sounds throughout with no rales, rhonchi or wheezes. Some prolongation of expiratory phase. No accessory muscle use. Abdomen: Positive bowel sounds, soft, nontender. Umbilical hernia noted. Extremities: No significant edema of the left lower extremity. Kvbic-evxu-uvpkxhgwdu (BKA) on the right. LABORATORY DATA: WBC 12.3, hemoglobin 12.6, hematocrit 39.2, platelets 198. Chemistry: Sodium is 130, potassium 4.0, chloride 95, carbon dioxide 27, BUN 15, creatinine 0.87, glucose 106, calcium 8.6, magnesium 1.7. ASSESSMENT AND PLAN: Left upper lobe mass. Concerning for malignancy. The patient is scheduled to have bronchoscopy with endobronchial ultrasound scheduled tomorrow, as he has continued clinical improvement. He has been consented for the procedure. Lovenox will need to be held Sunday night, which is tonight. He will also need to be nothing by mouth after midnight tonight. Sputum cytology has been collected and is pending.
[2019-07-23] MEDS: MAGNESIUM CHLORIDE 64 MG TABCR (SLO MAG) PO SCH (09:11)
[2019-07-23] MEDS: FOLIC ACID 1 MG TAB PO SCH (09:11)
[2019-07-23] MEDS: predniSONE 20 MG TAB PO SCH (09:11)
[2019-07-23] MEDS: THIAMINE 100 MG TAB PO SCH (09:11)
[2019-07-23] MEDS: ASPIRIN 81 MG ENTERIC TAB PO SCH (09:11)
[2019-07-23] MEDS: DOCUSATE SODIUM 100 MG CAP PO SCH ×2 (09:11→20:16)
--- NOTE | 2019-07-23 13:48 | IPNPDOC ---
Text Note Date of Service The patient was seen on 07/23/19. NOTE Subjective: Patient stated that he is doing better today, less cough, minimal amount of sputum, whitish. Objective: HEENT: Cachectic male CVS: S1-S2, regular rhythm Resp: Coarse lung sounds bilaterally Abd : soft nontender, normal bowel sounds, no rebound tenderness or guarding MSK: right bka Neuro: AOAx3, no confusion, no focal deficit Psych: Moves all 4 limbs, no nuchal rigidity Patient is 73 years old male with past medical history of COPD, hypertension presented to the hospital with chest, left shoulder, left knee, and abdominal pain. Patient was found to have atrial flutter, he received diltiazem drip, his heart rate was converted to sinus. Also patient was found to have upper left lung mass consistent with possible malignancy Atrial flutter Resolved Continue lovenox. We'll stop Lovenox on Sunday night before bronchoscopy with biopsy Rate controlled Continue diltiazem by mouth, we will hold beta blockers due to COPD exacerbation Chest pain Most likely demand ischemia Troponin trended down EKG did not show acute ischemic changes Left lung mass Most likely lung cancer Dr. Rivas planed bronchoscopy with endobronchial ultrasound on Sputum cytology pending COPD exacerbation Resolved. Patient has positive dynamics in breathing, his symptoms improved Patient has diminished lung sounds, patient does not have leukocytosis. DuoNeb [id number] Prednisone 40 mg Deconditioning PT OT evaluation Protein shake VS,Fishbone, I+O VS, Fishbone, I+O Laboratory Tests 07/23/19 05:42 Calcium Level 8.6 L Vital Signs Date Time Temp Pulse Resp B/P (MAP) Pulse Ox O2 Delivery O2 Flow Rate FiO2 07/23/19 12:00 98.9 92 18 170/70 (103) 94 07/20/19 16:45 Room Air I&O- Last 24 Hours up to 6 AM 07/23/19 05:59 Intake Total 740 ml Output Total 525 ml Balance 215 ml JENNIFER JAMESON DO Jul 23, 2019 13:47
[2019-07-23] MEDS ORDERED: SLF 3 ML SYR IV PRN (17:00)
--- NOTE | 2019-07-23 19:20 | ECHO ---
DATE OF PROCEDURE: 07/22/2019 AGE: 73 GENDER: Male HEIGHT: 68 inches WEIGHT: 123 pounds BODY SURFACE AREA: 1.67 m2 PATIENT LOCATION: Inpatient, PCU, room 3221 REFERRING PHYSICIAN: Faith Mccauley MD INDICATION: Dysrhythmias. 2-D MEASUREMENTS: RV: 4.6 cm LV: 4.8 cm Septum: 1.0 cm Posterior wall: 1.0 cm Aortic root: 2.7 cm LA: 3.6 cm LVEF: 60% DOPPLER MEASUREMENTS: AV: 2.5 m/s LVOT: 1.1 m/s LVOT diameter: 2.0 cm Mean AV systolic gradient: 11 mmHg. MV-E: 77, A: 134, EA ratio: 0.5 Early mitral deceleration time: 257 ms E prime: 5.6, A prime: 7, E/E prime ratio: 13.8 PCWP: 17.3 mmHg PV: 0.8 m/s Pulmonary artery acceleration time: 74 ms RVSP: 50 mmHg COMMENTS: Normal sinus rhythm with right bundle branch block. M-mode and two-dimensional echocardiography was performed with pulsed, continuous wave, color flow and tissue Doppler studies. Normal left ventricular size and wall thickness with obvious septal wall motion abnormality believed to be related to right ventricular pressure overload. Preserved global resting left ventricular systolic function. Left atrial size upper limits of normal with Doppler evidence of an impairment of LV diastolic function and mildly elevated estimated mean left atrial pressure. Moderately dilated right heart chambers with normal wall motion with Doppler evidence of at least moderate pulmonary hypertension. His inferior vena cava could not be visualized to accurately estimate his central venous pressure. Moderate aortic valvular sclerosis with mild aortic stenosis and insufficiency. Normal aortic root size. Mild degenerative changes of his mitral valvular apparatus without inflow tract obstruction but mild posteriorly directed mitral insufficiency. Normal appearing tricuspid valve with mild insufficiency. No apparent intracardiac mass or pericardial effusion.
[2019-07-23] MEDS: ATORVASTATIN 20 MG TAB PO SCH (20:16)
[2019-07-23] MEDS: SLF 3 ML SYR IV SCH (20:18)
[2019-07-24] VITALS (8 sets, daily range): BP systolic 118–169; BP diastolic 57–89
[2019-07-24] MEDS: ANEXSIA, NORCO 7.5MG/325MG TABLET(HYDROCODONE/APAP) PO PRN ×6 (00:57→21:29)
[2019-07-24] MEDS: ACETAMINOPHEN TAB 650MG DOSE (2X325MG) PO PRN (02:08)
[2019-07-24] MEDS: IPRATROPIUM 0.5MG/ALBUTEROL 2.5MG INH SOL UD 3ML (DUONEB)(J7620) NEB SCH ×6 (04:00→21:35)
[2019-07-24] MEDS: SLF 3 ML SYR IV SCH ×3 (05:02→22:00)
[2019-07-24 06:23] LABS: HEMATOCRIT 40.3 % (42.0-52.0); HEMOGLOBIN 12.9 g/dl (13.5-17.5); MEAN CORPUSCULAR HEMOGLOBIN 28.3 pg (27.0-33.0); MEAN CORPUSCULAR VOLUME 88.4 fl (80.0-96.0); PLATELET COUNT, AUTOMATED 213 10^3/uL (150-450); RED BLOOD COUNT 4.56 10^6/uL (4.30-6.10); WHITE BLOOD COUNT 12.1 10^3/uL (4.0-10.0)
[2019-07-24 06:49] LABS: BLOOD UREA NITROGEN 15 MG/DL (7-18); CALCIUM LEVEL 9.7 MG/DL (8.8-10.2); CARBON DIOXIDE LEVEL 33 MEQ/L (21-32); CHLORIDE LEVEL 95 MEQ/L (98-107); CREATININE FOR GFR 0.84 MG/DL (0.70-1.30); GLOMERULAR FILTRATION RATE > 60.0 (>42); GLUCOSE, FASTING 92 MG/DL (70-100); MAGNESIUM LEVEL 2.1 MG/DL (1.8-2.4); POTASSIUM SERUM 4.9 MEQ/L (3.5-5.1); SODIUM LEVEL 132 MEQ/L (136-145)
[2019-07-24] MEDS: FOLIC ACID 1 MG TAB PO SCH (08:26)
[2019-07-24] MEDS: ASPIRIN 81 MG ENTERIC TAB PO SCH (08:26)
[2019-07-24] MEDS: traMADol 50 MG TAB PO PRN ×2 (08:26→23:33)
[2019-07-24] MEDS: THIAMINE 100 MG TAB PO SCH (08:26)
[2019-07-24] MEDS: DOCUSATE SODIUM 100 MG CAP PO SCH ×2 (08:26→21:29)
[2019-07-24] MEDS: predniSONE 20 MG TAB PO SCH (08:26)
[2019-07-24] MEDS: MAGNESIUM CHLORIDE 64 MG TABCR (SLO MAG) PO SCH (08:26)
--- NOTE | 2019-07-24 09:07 | CCN ---
DATE OF SERVICE: 07/24/2019 Mr. Gao is seen again in the progressive care unit (PCU). Plans are for bronchoscopy today for a left upper lobe mass. The patient was made nothing by mouth after midnight. Today he states he is slowly feeling a little better. Still some shortness of breath but states that it is better. Still some chest discomfort which comes and goes but is overall about the same. He denies any fevers or chills. PHYSICAL EXAMINATION: Temperature 98.4, pulse 77, respiratory rate 18, blood pressure 140/89, pulse ox 94% on room air. General: The patient is alert and oriented times three. Mood and affect are appropriate. He does speak in complete sentences, but still has some voice hoarseness. HEENT: Head is normocephalic, atraumatic. Moist mucous membranes. Neck: Neck is supple. No cervical lymphadenopathy. No jugular venous distention (JVD). No tracheal deviation. Cardiac: Regular rate and rhythm. S1-S2, no murmur. Pulmonary: Diminished breath sounds throughout with no rales, rhonchi or wheezing appreciated. No accessory muscle use. Abdomen: Positive bowel sounds, soft, nontender. No rebound or guarding. Umbilical hernia. Extremities: No significant left lower extremity edema. The patient has a below knee amputation (BKA) on the right. LABORATORY DATA: WBC 12.1, hemoglobin 12.9, hematocrit is 40.3, platelet count is 213. Sodium is 132, potassium 4.9, chloride 95. Carbon dioxide 33, BUN 15, creatinine 0.84, glucose 92, calcium 9.7, magnesium is 2.1. ASSESSMENT AND PLAN: Left upper lobe mass. Concerning for malignancy. The patient is scheduled for bronchoscopy with endobronchial ultrasound today. The patient has been consented for the procedure. His Lovenox has been held and he is been made nothing by mouth for today's procedure. A sputum cytology was collected and did show scattered squamous cells, however, it was considered unsatisfactory for evaluation as it was not a deep cough specimen.
[2019-07-24] MEDS ORDERED: PROPOFOL 200 MG/20 ML VIAL As Ordered ONE (12:49)
[2019-07-24] MEDS ORDERED: MIDAZOLAM INJ 2 MG/2 ML VIAL (J2250) As Ordered ONE (12:49)
[2019-07-24] MEDS ORDERED: LIDOCAINE 2% INJ 100 MG/5 ML SDV (FOR ANES.) As Ordered ONE (12:49)
[2019-07-24] MEDS ORDERED: fentaNYL 100 MCG/2 ML INJECTION (J3010) As Ordered ONE (12:49)
[2019-07-24] MEDS ORDERED: ONDANSETRON 4MG/2ML VIAL (J2405) As Ordered ONE (12:49)
[2019-07-24] MEDS ORDERED: dexameTHASONE 4 MG/ML 1ML VIAL (J1100) As Ordered ONE (12:50)
[2019-07-24] MEDS ORDERED: ROCURONIUM BROMIDE 50 MG/5 ML VIAL As Ordered ONE (12:50)
[2019-07-24] MEDS ORDERED: CETACAINE SPRAY 5GM As Ordered ONE (13:04)
[2019-07-24] MEDS ORDERED: EPINEPHrine 1MG/10ML SYRINGE 1.5IN As Ordered ONE (13:04)
[2019-07-24] MEDS ORDERED: THROMBIN SOLN 5,000 UNITS VIAL As Ordered ONE (13:04)
[2019-07-24] MEDS ORDERED: LIDOCAINE VISCOUS 2% SOLN 15ML UDC As Ordered ONE (13:05)
[2019-07-24] MEDS ORDERED: LIDOCAINE 1% SDV INJ 30 ML VIAL As Ordered ONE (13:05)
[2019-07-24] MEDS ORDERED: GLYCOPYRROLATE INJ 0.2 MG/ML 2 ML VIAL As Ordered ONE (13:54)
[2019-07-24] MEDS ORDERED: NEOSTIGMINE 10 MG/10 ML VIAL (J2710) As Ordered ONE (13:54)
--- NOTE | 2019-07-24 14:34 | RO ---
DATE OF PROCEDURE: 07/24/2019 PREOPERATIVE DIAGNOSIS: Left upper lobe mass, abnormal chest CT. POSTOPERATIVE DIAGNOSIS: Left upper lobe mass, abnormal chest CT. PROCEDURE: Bronchoscopy with endobronchial ultrasound. SURGEON: Dr. Mason Rivas. ANESTHESIA: General. FINDINGS: Smoker airways. SPECIMEN OBTAINED: Fine needle aspiration (FNA) endobronchial ultrasound. ESTIMATED BLOOD LOSS: Less than 5 mL. DESCRIPTION OF PROCEDURE: Informed consent was reviewed with the patient in preoperative area and he was brought back to operating room (OR) #8. General anesthesia was initiated with an 8.5 endotracheal tube. Case was then handed over to ut. Time-out was performed with two patient identifiers, identifying correct site, correct procedure. The 1T190 scope was then inserted into the airway. All airways were suctioned. There was thick amounts of tenacious sputum that was fairly clear to white in nature. No evidence of hemoptysis. Trachea was midline. Samanta was fairly sharp. There was no splaying. Right and left mainstem bronchus was normal. RV 1-10 was normal without endobronchial lesions. Minimal banding. Similar findings on the left LV 1-10 was normal without endobronchial lesions. Some anatomic variation of the lingula with an extra segment. After exploration of the airways that 1T190 bronchoscope was removed endobronchial ultrasound was inserted. The right pretracheal area was viewed without significant adenopathy. The left pretracheal and paratracheal area was viewed with a large mass alf down the trachea. Finally, aspiration was used to obtain samples. After on-site cytology confirmed adequate tissue sampling for potential cell block, the endobronchial ultrasound was removed. The 1T190 bronchoscope was inserted. All airways were suctioned and hemostasis was assured. Bronchoscope was removed. The patient was extubated and is in recovery. Postprocedure chest x-ray is pending.
--- NOTE | 2019-07-24 14:48 | REP ---
Portable chest, post bronchoscopy, 02:33 p.m., single AP view with the patient upright: Comparison is 07/20/2019. There is a large mass medially in the left upper lobe, similar to the comparison study. There is no pneumothorax or pleural fluid collection. Lung walker otherwise clear. Cardiac size is enlarged, unchanged. Impression: No pneumothorax or pleural fluid collection. Large mass medially in the left upper lobe, unchanged. Electronically Signed by Marcelo Padron MD 07/24/2019 02:40 P
[2019-07-24] MEDS ORDERED: LR 1,000 ML IV SCH (15:15)
[2019-07-24] MEDS ORDERED: fentaNYL 100 MCG/2 ML INJECTION (J3010) IV PRN (15:15)
--- NOTE | 2019-07-24 17:59 | IPNPDOC ---
Text Note Date of Service The patient was seen on 07/24/19. NOTE Subjective: Patient stated that he is doing better today, he has a mild short ness of breath on exertion Objective: HEENT: Cachectic male CVS: S1-S2, regular rhythm Resp: Coarse lung sounds bilaterally Abd : soft nontender, normal bowel sounds, no rebound tenderness or guarding MSK: right bka Neuro: AOAx3, no confusion, no focal deficit Psych: Moves all 4 limbs, no nuchal rigidity Patient is 73 years old male with past medical history of COPD, hypertension presented to the hospital with chest, left shoulder, left knee, and abdominal pain. Patient was found to have atrial flutter, he received diltiazem drip, his heart rate was converted to sinus. Also patient was found to have upper left lung mass consistent with possible malignancy Atrial flutter Resolved We'll resume Lovenox tomorrow Rate controlled Continue diltiazem by mouth, we will hold beta blockers due to COPD exacerbation Chest pain Most likely demand ischemia Troponin trended down EKG did not show acute ischemic changes Left lung mass Most likely lung cancer Dr. Rivas did bronchoscopy with endobronchial ultrasound. Result pending COPD exacerbation Resolved. Patient has positive dynamics in breathing, his symptoms improved Patient has diminished lung sounds, patient does not have leukocytosis. DuoNeb ilfcoh-jyf-zyfpf Prednisone 40 mg Deconditioning PT OT evaluation Protein shake VS,Fishbone, I+O VS, Fishbone, I+O Laboratory Tests 07/24/19 06:00 Red Blood Count 4.56, Mean Corpuscular Volume 88.4, Mean Corpuscular Hemoglobin 28.3, Mean Corpuscular Hemoglobin Concent 32.0, Red Cell Distribution Width 19.1 H, Calcium Level 9.7 Vital Signs Date Time Temp Pulse Resp B/P (MAP) Pulse Ox O2 Delivery O2 Flow Rate FiO2 07/24/19 17:13 22 07/24/19 16:00 98.1 80 169/76 (107) 94 07/20/19 16:45 Room Air I&O- Last 24 Hours up to 6 AM 07/24/19 05:59 Intake Total 1175 ml Output Total 1075 ml Balance 100 ml JENNIFER JAMESON DO Jul 24, 2019 17:59
[2019-07-24] MEDS ORDERED: MIRALAX *UNIT DOSE* 17GM PACKET PO ONE (18:15)
[2019-07-24] MEDS: ATORVASTATIN 20 MG TAB PO SCH (21:28)
[2019-07-25] VITALS (7 sets, daily range): BP systolic 122–174; BP diastolic 60–76
[2019-07-25] MEDS: IPRATROPIUM 0.5MG/ALBUTEROL 2.5MG INH SOL UD 3ML (DUONEB)(J7620) NEB SCH
[2019-07-25] MEDS: ANEXSIA, NORCO 7.5MG/325MG TABLET(HYDROCODONE/APAP) PO PRN ×5 (02:29→19:56)
[2019-07-25 06:05] LABS: BLOOD UREA NITROGEN 16 MG/DL (7-18); CALCIUM LEVEL 9.5 MG/DL (8.8-10.2); CARBON DIOXIDE LEVEL 32 MEQ/L (21-32); CHLORIDE LEVEL 96 MEQ/L (98-107); CREATININE FOR GFR 0.83 MG/DL (0.70-1.30); GLOMERULAR FILTRATION RATE > 60.0 (>42); GLUCOSE, FASTING 128 MG/DL (70-100); MAGNESIUM LEVEL 2.1 MG/DL (1.8-2.4); POTASSIUM SERUM 5.1 MEQ/L (3.5-5.1); SODIUM LEVEL 132 MEQ/L (136-145)
[2019-07-25] MEDS: SLF 3 ML SYR IV SCH ×3 (06:27→22:17)
[2019-07-25] MEDS ORDERED: MAGNESIUM CITRATE 300 ML BTL PO ONE ×4 (09:00→20:15)
[2019-07-25] MEDS: predniSONE 20 MG TAB PO SCH (09:27)
[2019-07-25] MEDS: MAGNESIUM CHLORIDE 64 MG TABCR (SLO MAG) PO SCH (09:27)
[2019-07-25] MEDS: ASPIRIN 81 MG ENTERIC TAB PO SCH (09:27)
[2019-07-25] MEDS: DOCUSATE SODIUM 100 MG CAP PO SCH ×2 (09:27→20:01)
[2019-07-25] MEDS: THIAMINE 100 MG TAB PO SCH (09:28)
[2019-07-25] MEDS: FOLIC ACID 1 MG TAB PO SCH (09:28)
[2019-07-25 13:23] LABS: BASO % 0.1 % (0.0-1.0); EOS % 0.1 % (0.0-3.0); HEMATOCRIT 40.5 % (42.0-52.0); HEMOGLOBIN 12.9 g/dl (13.5-17.5); LYMPH # 0.6 10^3/uL (1.5-5.0); LYMPH % 3.9 % (24.0-44.0); MEAN CORPUSCULAR HEMOGLOBIN 27.4 pg (27.0-33.0); MEAN CORPUSCULAR HGB CONC 31.9 g/dl (32.0-36.5); MEAN CORPUSCULAR VOLUME 86.2 fl (80.0-96.0); MONO # 1.4 10^3/uL (0.0-0.8); MONO % 9.7 % (0.0-5.0); NEUTROPHILS # 12.3 10^3/uL (1.5-8.5); NEUTROPHILS % 85.4 % (36.0-66.0); PLATELET COUNT, AUTOMATED 225 10^3/uL (150-450); WHITE BLOOD COUNT 14.4 10^3/uL (4.0-10.0)
[2019-07-25] MEDS: GASTROGRAFIN SOLUTION 30ML PO SCH ×2 (13:41→14:14)
[2019-07-25] MEDS ORDERED: ISOVUE-370 76% 100ML VIAL (Q9967) As Ordered ONE (14:36)
[2019-07-25] MEDS ORDERED: PIPERACILLIN/TAZOBACTAM SOD 2.25 GM in D5W MINI-BAG PLUS 50 ML IV SCH (14:45)
--- NOTE | 2019-07-25 14:48 | IPNPDOC ---
Text Note Date of Service The patient was seen on 07/25/19. NOTE Subjective: Around 11 AM patient developed desaturation, abdominal pain 9 out of 10. Patient received treatment with oxygen. Overnight patient developed urinary retention, he was catheterized. In the morning patient had difficulties in urinating, Newberry was placed. Also patient was complained of constipation Objective: HEENT: Cachectic male CVS: S1-S2, regular rhythm Resp: Coarse lung sounds bilaterally Abd : Moderately distended, soft, diminished bowel sounds, diffuse moderate tenderness, no rigidity, no rebound MSK: right bka Neuro: AOAx3, no confusion, no focal deficit Psych: Moves all 4 limbs, no nuchal rigidity Patient is 73 years old male with past medical history of COPD, hypertension presented to the hospital with chest, left shoulder, left knee, and abdominal pain. Patient was found to have atrial flutter, he received diltiazem drip, his heart rate was converted to sinus. Also patient was found to have upper left lung mass consistent with possible malignancy Atrial flutter Resolved xarelto Rate controlled Continue diltiazem by mouth, we will hold beta blockers due to COPD exacerbation Chest pain Resolved Most likely demand ischemia Troponin trended down EKG did not show acute ischemic changes Left lung mass Most likely lung cancer Dr. Rivas did bronchoscopy with endobronchial ultrasound. Result pending Follow-up with oncologist and procurement consultant in the outpatient settings COPD exacerbation Resolved. Patient has positive dynamics in breathing. Sputum culture was negative Blood culture was negative DuoNeb PRN Prednisone 40 mg Abdominal pain Patient did not have bowel movement for 1 week despite of laxatives. Today patient has rising leukocytes level, could be sign of colitis I will start Zosyn empirically, given leukocytosis, abdominal pain, constipation for more than one week resistant to laxatives. There is risk for bacterial translocation Abdominal CT scan Lactic acid Deconditioning PT OT evaluation Protein shake VS,Fishbone, I+O VS, Fishbone, I+O Laboratory Tests 07/25/19 05:25 Calcium Level 9.5 07/25/19 13:04 Red Blood Count 4.70, Mean Corpuscular Volume 86.2, Mean Corpuscular Hemoglobin 27.4, Mean Corpuscular Hemoglobin Concent 31.9 L, Red Cell Distribution Width 19.2 H, Neutrophils (%) (Auto) 85.4 H, Lymphocytes (%) (Auto) 3.9 L, Monocytes (%) (Auto) 9.7 H, Eosinophils (%) (Auto) 0.1, Basophils (%) (Auto) 0.1, Neutrophils # (Auto) 12.3 H, Lymphocytes # (Auto) 0.6 L, Monocytes # (Auto) 1.4 H, Eosinophils # (Auto) 0.0, Basophils # (Auto) 0.0 Vital Signs Date Time Temp Pulse Resp B/P (MAP) Pulse Ox O2 Delivery O2 Flow Rate FiO2 07/25/19 12:23 102 150/70 07/25/19 11:23 16 07/25/19 07:35 98.5 93 07/20/19 16:45 Room Air I&O- Last 24 Hours up to 6 AM 07/25/19 05:59 Intake Total 1190 ml Output Total 1620 ml Balance -430 ml JENNIFER JAMESON DO Jul 25, 2019 14:47
[2019-07-25] MEDS ORDERED: BISACODYL 10 MG SUPP PR ONE (15:00)
[2019-07-25] MEDS: IPRATROPIUM 0.5MG/ALBUTEROL 2.5MG INH SOL UD 3ML (DUONEB)(J7620) NEB PRN (15:29)
[2019-07-25] MEDS: PIPERACILLIN/TAZOBACTAM SOD 3.375 GM in D5W MINI-BAG PLUS 50 ML IV SCH ×2 (15:30→22:17)
[2019-07-25] MEDS: NS 1,000 ML IV SCH (15:31)
--- NOTE | 2019-07-25 15:49 | REP ---
CT of the abdomen and pelvis with IV and bowel contrast: Comparison is 07/20/2019. The visualized lung walker are unremarkable except for dependent atelectasis. The hepatic parenchyma is homogeneous and unremarkable. There are small calculi layering in the dependent wall of the gallbladder. The gallbladder is otherwise unremarkable. The pancreas and spleen are unremarkable. The adrenals are unremarkable. There is significant left renal cortical atrophy. This is unchanged. The right kidney is unremarkable. There is calcified atheroma in the abdominal aorta. There is an aorto by iliac and femoral and O graft as previously. There is an Endo leak in the left iliac portion of the Endo graft as previously. 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 This is unchanged. There is a small bowel distension as an interval change. There are multiple air-fluid levels in the small bowel. This is also an interval change. This could represent ileus or small bowel obstruction. The terminal ileum is unremarkable. There is no ascites. There is no pneumoperitoneum. Pelvis: There is no ascites. There is a Newberry catheter in the bladder. The distal small bowel loops are not quite as dilated as the mid and proximal small bowel loops. There is no adenopathy. Impression: There is diffuse small bowel distension with multiple air-fluid levels, nonspecific, ileus versus small bowel obstruction. This is a change from the prior study. There is no pneumoperitoneum or ascites. Cholelithiasis. Aortobi-biiliac bifemoral vascular graft in the pelvis as described, unchanged from the prior study. Electronically Signed by Marcelo Padron MD 07/25/2019 03:40 P
[2019-07-25] MEDS ORDERED: RIVAROXABAN 20 MG TAB (XARELTO) PO SCH (18:00)
[2019-07-25] MEDS: ATORVASTATIN 20 MG TAB PO SCH (20:01)
[2019-07-25] MEDS: traMADol 50 MG TAB PO PRN (22:50)
--- NOTE | 2019-07-25 23:21 | CR ---
DATE OF CONSULTATION: 07/25/2019 REASON FOR CONSULTATION: Ileus versus bowel obstruction. HISTORY OF PRESENT ILLNESS: The patient is a 73-year-old male. He has been in the hospital since the with complaints of pain on the left side of his abdomen and the left side of his body. He was diagnosed with new onset atrial flutter and had some likely demand ischemia from that and has been in the hospital since. The reason I was consulted is that he has not had a bowel movement since a day or two prior to admission. He claims he is passing gas and has been all along, but he has not had a bowel movement in a while. He is having some abdominal pains that are new as well as some increasing distension of his abdomen, but he also says that has been improving over the last few hours. He is just getting off of the commode right now. He claims he passed a little stool but there is nothing in it. He likely just passed a lot of gas. He has been given multiple laxatives since admission, but they have been unsuccessful. He claims that he does take multiple laxatives and stool softeners at home on a daily basis and he has been having increased problems with bowel movements for about 2 months now. Usually when he takes a large amount of laxatives at all one time, he is able to have a successful bowel movement. He denies any nausea or vomiting currently. Just slight spitting up when he is taking medications. No other complaints. PAST MEDICAL HISTORY: Chronic obstructive pulmonary disease (COPD). Hypertension. Tongue cancer. Chronic kidney disease. Alcoholic liver disease. Heart murmur. PAST SURGICAL HISTORY Right below the knee amputation (BKA). Right inguinal hernia repair. [id number] grafts. FAMILY HISTORY: Noncontributory. ALLERGIES: OXYCODONE. MEDICATIONS: Please see medical record. SOCIAL HISTORY: Smokes pack a day. Denies drug or alcohol abuse currently. REVIEW OF SYSTEMS: Pertinent positives and negative stated in the HPI. PHYSICAL EXAMINATION General: Alert and oriented times three. No acute stress. Vitals: Temperature 98.4, pulse 85, respiration 20, blood pressure 148/65, pulse ox 99% on 2 liters nasal cannula. HEENT: Pupils equal round react to light and accommodation. Heart: S1, S2 regular rate and rhythm. Lungs: Clear to auscultation bilaterally. Abdomen: Soft, slightly distended, nontender, no rebounding, guarding or rigidity. There is an umbilical hernia that is reducible with some significant pressure but was nontender. Extremities: No clubbing, cyanosis or edema. LABORATORY DATA White count 14.4, hemoglobin 12.9, platelets 225, creatinine 0.83, lactic acid 1.[address] abdomen and pelvis: Shows diffuse small bowel distension with multiple air fluid levels, nonspecific ileus or small bowel obstruction. This is a change from prior study. ASSESSMENT/PLAN The patient is a 73-year-old male with new-onset atrial flutter that is currently under control. He also had a lung mass which was biopsied during this admission which came back positive for squamous cell carcinoma. Currently he has what appears to be ileus versus small-bowel obstruction. This may have been secondary to a small incarcerated umbilical hernia that I was able to reduce at the bedside but that is very unlikely. I did not see any signs of that being a transition on his CT. Based off his overall nutritional status and activity, this is likely ileus as opposed to an obstruction. It seems that he is laxative dependent from his history. Will plan to put him back on high-dose laxatives and stool softeners. If he is able to tolerate, having bowel movement without any nausea or vomiting, then we will put him back on a good bowel regimen and leave it as it is. However, if he is unsuccessful and cannot tolerate the mag citrate then we will place an NG tube, decompress him and see how he goes from there.
[2019-07-26] VITALS (10 sets, daily range): BP systolic 111–164; BP diastolic 60–77; O2SAT 92–95
[2019-07-26] MEDS: ANEXSIA, NORCO 7.5MG/325MG TABLET(HYDROCODONE/APAP) PO PRN ×5 (00:11→20:43)
[2019-07-26] MEDS: PIPERACILLIN/TAZOBACTAM SOD 3.375 GM in D5W MINI-BAG PLUS 50 ML IV SCH ×4 (04:21→21:38)
[2019-07-26] MEDS: NS 1,000 ML IV SCH ×2 (04:21→16:00)
[2019-07-26] MEDS: SLF 3 ML SYR IV SCH ×3 (06:00→21:38)
[2019-07-26] MEDS: IPRATROPIUM 0.5MG/ALBUTEROL 2.5MG INH SOL UD 3ML (DUONEB)(J7620) NEB PRN (06:24)
[2019-07-26 06:41] LABS: BLOOD UREA NITROGEN 18 MG/DL (7-18); CALCIUM LEVEL 8.9 MG/DL (8.8-10.2); CARBON DIOXIDE LEVEL 30 MEQ/L (21-32); CHLORIDE LEVEL 94 MEQ/L (98-107); CREATININE FOR GFR 0.79 MG/DL (0.70-1.30); FERRITIN 133 NG/ML (26-388); GLOMERULAR FILTRATION RATE > 60.0 (>42); GLUCOSE, FASTING 115 MG/DL (70-100); IRON (FE) 71 UG/DL (65-175); MAGNESIUM LEVEL 2.5 MG/DL (1.8-2.4); PERCENT SATURATION 31.3 % (19.7-50.0); POTASSIUM SERUM 5.8 MEQ/L (3.5-5.1); SODIUM LEVEL 130 MEQ/L (136-145); TOTAL IRON BINDING CAPACITY 227 UG/DL (250-450)
[2019-07-26 08:10] LABS: HEMATOCRIT 44.5 % (42.0-52.0); HEMOGLOBIN 13.9 g/dl (13.5-17.5); MEAN CORPUSCULAR HEMOGLOBIN 28.1 pg (27.0-33.0); MEAN CORPUSCULAR HGB CONC 31.2 g/dl (32.0-36.5); MEAN CORPUSCULAR VOLUME 90.1 fl (80.0-96.0); PLATELET COUNT, AUTOMATED 246 10^3/uL (150-450); RED BLOOD COUNT 4.94 10^6/uL (4.30-6.10); WHITE BLOOD COUNT 18.8 10^3/uL (4.0-10.0)
[2019-07-26] MEDS: predniSONE 20 MG TAB PO SCH (08:57)
[2019-07-26] MEDS: FOLIC ACID 1 MG TAB PO SCH (08:57)
[2019-07-26] MEDS: DOCUSATE SODIUM 100 MG CAP PO SCH (08:57)
[2019-07-26] MEDS: MAGNESIUM CHLORIDE 64 MG TABCR (SLO MAG) PO SCH ×2 (08:57→09:00)
[2019-07-26] MEDS: THIAMINE 100 MG TAB PO SCH (08:57)
[2019-07-26] MEDS ORDERED: amLODIPine 5 MG TAB PO SCH (09:00)
[2019-07-26] MEDS ORDERED: MAGNESIUM CITRATE 300 ML BTL PO ONE (10:00)
--- NOTE | 2019-07-26 10:00 | IPNPDOC ---
Text Note Date of Service The patient was seen on 07/26/19. NOTE No acute events overnight. He has had a BM, and feels good. Denies nausea, em esis, pain, or problems with diet. VSSAF NAD abd - soft, nt, nd labs - below A) 73y/o male with constipation that is resolved. P) reg diet bowel regimen will follow as needed. Jose Talavera DO VS,Fishbone, I+O VS, Fishbone, I+O Laboratory Tests 07/25/19 13:04 Red Blood Count 4.70, Mean Corpuscular Volume 86.2, Mean Corpuscular Hemoglobin 27.4, Mean Corpuscular Hemoglobin Concent 31.9 L, Red Cell Distribution Width 19.2 H, Neutrophils (%) (Auto) 85.4 H, Lymphocytes (%) (Auto) 3.9 L, Monocytes (%) (Auto) 9.7 H, Eosinophils (%) (Auto) 0.1, Basophils (%) (Auto) 0.1, Neutrophils # (Auto) 12.3 H, Lymphocytes # (Auto) 0.6 L, Monocytes # (Auto) 1.4 H, Eosinophils # (Auto) 0.0, Basophils # (Auto) 0.0 07/26/19 05:37 Calcium Level 8.9 07/26/19 07:54 Red Blood Count 4.94, Mean Corpuscular Volume 90.1, Mean Corpuscular Hemoglobin 28.1, Mean Corpuscular Hemoglobin Concent 31.2 L, Red Cell Distribution Width 19.3 H Vital Signs Date Time Temp Pulse Resp B/P (MAP) Pulse Ox O2 Delivery O2 Flow Rate FiO2 07/26/19 08:00 98.0 91 17 152/77 (102) 96 07/26/19 07:06 1.0 07/20/19 16:45 Room Air I&O- Last 24 Hours up to 6 AM 07/26/19 06:00 Intake Total 2660 ml Output Total 2200 ml Balance 460 ml ANGELA TALAVERA DO Jul 26, 2019 09:59
[2019-07-26] MEDS ORDERED: MIRALAX *UNIT DOSE* 17GM PACKET PO PRN (10:15)
--- NOTE | 2019-07-26 10:27 | IPNPDOC ---
Text Note Date of Service The patient was seen on 07/26/19. NOTE Subjective: Patient continues to have constipation, he complains of mild abdo courtney discomfort. Also patient developed one episode of hematuria after Newberry catheter placement Objective: HEENT: Cachectic male CVS: S1-S2, regular rhythm Resp: Diminished lung sounds bilaterally Abd : Moderately distended, soft, diminished bowel sounds, diffuse mild tenderness, no rigidity, no rebound MSK: right bka Neuro: AOAx3, no confusion, no focal deficit Psych: Moves all 4 limbs, no nuchal rigidity Patient is 73 years old male with past medical history of COPD, hypertension presented to the hospital with chest, left shoulder, left knee, and abdominal pain. Patient was found to have atrial flutter, he received diltiazem drip, his heart rate was converted to sinus. Also patient was found to have upper left lung mass consistent with possible malignancy. Lung biopsy was done on 07/24/19 Atrial flutter Resolved xarelto was on hold due to gross episode of hematuria Rate controlled Continue diltiazem by mouth, we will hold beta blockers due to COPD exacerbation Chest pain Resolved Most likely demand ischemia Troponin trended down EKG did not show acute ischemic changes Left lung mass Most likely lung cancer Dr. Rivas did bronchoscopy with endobronchial ultrasound. Result pending Follow-up with oncologist and fishing game warden in the outpatient settings COPD exacerbation Resolved. Patient has positive dynamics in breathing. Sputum culture was negative Blood culture was negative DuoNeb PRN I stopped prednisone by mouth Abdominal pain Patient did not have bowel movement for 1 week despite of laxatives. Patient has history of chronic constipation. Laxative dependent Today patient has elevated leukocytes level to 18.8 from 14.4, could be sign of colitis or reactive leukocytosis Patient does not have fever, chills. Lactic acid yesterday was normal. I repeated blood culture today I started Zosyn yesterday empirically, given leukocytosis, abdominal pain, constipation for more than one week resistant to laxatives. There is risk for bacterial translocation CAT scan on 07/25/19 showed possible ileus versus small bowel obstruction dr Talavera recommended to increase bowel movement regimen If patient do not developed bowel movement he will need NG tube for decompr ession Hematuria Secondary to traumatic Newberry placement. I keep Newberry for today due to constipation Xarelto and aspirin on hold for today Deconditioning PT OT evaluation Protein shake VS,Fishbone, I+O VS, Fishbone, I+O Laboratory Tests 07/25/19 13:04 Red Blood Count 4.70, Mean Corpuscular Volume 86.2, Mean Corpuscular Hemoglobin 27.4, Mean Corpuscular Hemoglobin Concent 31.9 L, Red Cell Distribution Width 19.2 H, Neutrophils (%) (Auto) 85.4 H, Lymphocytes (%) (Auto) 3.9 L, Monocytes (%) (Auto) 9.7 H, Eosinophils (%) (Auto) 0.1, Basophils (%) (Auto) 0.1, Neutrophils # (Auto) 12.3 H, Lymphocytes # (Auto) 0.6 L, Monocytes # (Auto) 1.4 H, Eosinophils # (Auto) 0.0, Basophils # (Auto) 0.0 07/26/19 05:37 Calcium Level 8.9 07/26/19 07:54 Red Blood Count 4.94, Mean Corpuscular Volume 90.1, Mean Corpuscular Hemoglobin 28.1, Mean Corpuscular Hemoglobin Concent 31.2 L, Red Cell Distribution Width 19.3 H Vital Signs Date Time Temp Pulse Resp B/P (MAP) Pulse Ox O2 Delivery O2 Flow Rate FiO2 07/26/19 09:00 1.0 07/26/19 08:00 98.0 91 17 152/77 (102) 96 07/20/19 16:45 Room Air I&O- Last 24 Hours up to 6 AM 07/26/19 06:00 Intake Total 2660 ml Output Total 2200 ml Balance 460 ml JENNIFER JAMESON DO Jul 26, 2019 10:27
[2019-07-26] MEDS ORDERED: CALCIUM GLUCONATE 1,000 MG in D5W MINI-BAG PLUS 100 ML IV SCH (11:00)
[2019-07-26] MEDS ORDERED: CALCIUM GLUCONATE 1,000 MG in D5W MINI-BAG PLUS 100 ML IV ONE (11:00)
[2019-07-26 11:42] LABS: BLOOD UREA NITROGEN 16 MG/DL (7-18); CARBON DIOXIDE LEVEL 31 MEQ/L (21-32); CHLORIDE LEVEL 93 MEQ/L (98-107); CREATININE FOR GFR 0.92 MG/DL (0.70-1.30); GLOMERULAR FILTRATION RATE > 60.0 (>42); GLUCOSE, FASTING 121 MG/DL (70-100); SODIUM LEVEL 130 MEQ/L (136-145)
[2019-07-26] MEDS: traMADol 50 MG TAB PO PRN (12:51)
[2019-07-26] MEDS: ALBUTEROL 90 MCG/ACT 8GM HFA INHALER INH PRN ×2 (12:51→18:17)
--- NOTE | 2019-07-26 16:03 | ECGEPIP ---
[facility] Test Date: 2019-07-26 Pat Name: KEELY STALLINGS Department: Room: [place] [address] Gender: Male President [employer] Ceo: : 1945 Requested By: JENNIFER JAMESON Order Number: [id number] Reading MD: Stevie Daniel Measurements Intervals [place] Rate: 92 P: 34 MI: 136 QRS: 195 QRSD: 166 T: -6 QT: 384 QTc: 476 Interpretive Statements Normal sinus rhythm Right axis deviation Right bundle branch block No significant change when compared to prior tracing of 07/21/2019 Electronically Signed on 07-26-2019 16:02:55 EDT by Stevie Daniel
[2019-07-26] MEDS: ATORVASTATIN 20 MG TAB PO SCH (20:42)
[2019-07-26] MEDS: SENNA 8.6 MG TAB (SENOKOT) PO SCH (20:42)
[2019-07-26] MEDS: MOM 30ML SUSPENSION UDC PO SCH (20:42)
[2019-07-26] MEDS: ACETAMINOPHEN TAB 650MG DOSE (2X325MG) PO PRN (22:32)
[2019-07-27] VITALS (29 sets, daily range): BP systolic 123–186; BP diastolic 58–81; O2SAT 80–97
[2019-07-27] MEDS: ANEXSIA, NORCO 7.5MG/325MG TABLET(HYDROCODONE/APAP) PO PRN ×5 (02:04→19:37)
[2019-07-27] MEDS: PIPERACILLIN/TAZOBACTAM SOD 3.375 GM in D5W MINI-BAG PLUS 50 ML IV SCH (03:45)
[2019-07-27] MEDS: NS 1,000 ML IV SCH ×2 (03:46→18:09)
[2019-07-27] MEDS: ALBUTEROL 90 MCG/ACT 8GM HFA INHALER INH PRN ×3 (04:56→17:49)
[2019-07-27 05:41] LABS: HEMATOCRIT 40.3 % (42.0-52.0); MEAN CORPUSCULAR HEMOGLOBIN 27.8 pg (27.0-33.0); MEAN CORPUSCULAR HGB CONC 32.3 g/dl (32.0-36.5); MEAN CORPUSCULAR VOLUME 86.1 fl (80.0-96.0); PLATELET COUNT, AUTOMATED 235 10^3/uL (150-450); RED BLOOD COUNT 4.68 10^6/uL (4.30-6.10); WHITE BLOOD COUNT 18.1 10^3/uL (4.0-10.0)
[2019-07-27 06:00] LABS: BLOOD UREA NITROGEN 15 MG/DL (7-18); CALCIUM LEVEL 9.3 MG/DL (8.8-10.2); CARBON DIOXIDE LEVEL 33 MEQ/L (21-32); CHLORIDE LEVEL 93 MEQ/L (98-107); CREATININE FOR GFR 0.91 MG/DL (0.70-1.30); GLOMERULAR FILTRATION RATE > 60.0 (>42); GLUCOSE, FASTING 119 MG/DL (70-100); MAGNESIUM LEVEL 2.6 MG/DL (1.8-2.4); POTASSIUM SERUM 4.7 MEQ/L (3.5-5.1); SODIUM LEVEL 131 MEQ/L (136-145)
[2019-07-27] MEDS: SLF 3 ML SYR IV SCH ×3 (06:00→22:00)
[2019-07-27] MEDS: FOLIC ACID 1 MG TAB PO SCH (08:50)
[2019-07-27] MEDS: SENNA 8.6 MG TAB (SENOKOT) PO SCH ×2 (08:50→20:11)
[2019-07-27] MEDS: ASPIRIN 81 MG ENTERIC TAB PO SCH (08:50)
[2019-07-27] MEDS: MOM 30ML SUSPENSION UDC PO SCH ×2 (08:50→20:11)
[2019-07-27] MEDS: amLODIPine 10 MG TAB PO SCH (08:51)
[2019-07-27] MEDS: BISACODYL 5 MG TAB PO SCH (08:51)
[2019-07-27] MEDS: THIAMINE 100 MG TAB PO SCH (08:51)
[2019-07-27] MEDS: TAMSULOSIN 0.4 MG CAP PO SCH (08:51)
[2019-07-27] MEDS: FUROSEMIDE 20 MG/2 ML VIAL (J1940) IV SCH ×2 (08:52→17:02)
[2019-07-27] MEDS: LevoFLOXacin 500 MG TABLET PO SCH (08:58)
[2019-07-27] MEDS ORDERED: predniSONE 20 MG TAB PO SCH (09:00)
[2019-07-27] MEDS ORDERED: ISOVUE-370 76% 100ML VIAL (Q9967) As Ordered ONE (10:09)
--- NOTE | 2019-07-27 11:34 | REP ---
CT BRAIN WITHOUT AND WITH CONTRAST: 07/27/2019. Clinical history: Left lung mass, evaluate for metastatic disease in the brain. Technique: Precontrast imaging followed by bolus of 75 ml Isovue 370 with rescanning through the brain soft tissue and bone windows reviewed for each slice level. Findings: There are no prior studies. Precontrast images show the ventricles are midline symmetric, mildly dilated and in proportion to the diffuse cerebral atrophy. All of this is age appropriate and atrophy is greatest in the temporal and frontal lobes. Third and fourth ventricles were likewise unremarkable. Basal ganglia symmetric. The natarajan-white junction differentiation well maintained, but there are some heterogeneous low attenuation white matter changes within the cerebral hemispheres, suggesting chronic small vessel ischemic disease of aging. Cortical stripe shows atrophy but no evidence for acute infarct, hemorrhage, mass or mass effect. No extra-axial fluid collections. Brainstem was unremarkable. Cerebellum shows some mild atrophy but no mass. There are vascular calcifications in the carotid siphons and vertebral basilar arteries. After contrast administration. There is no abnormal meningeal enhancement, enhancing mass, gyriform enhancement or vascular enhancement that would suggest aneurysm. The bone windows show the mastoids and visualized sinuses clear. Skull base and calvarium show no fracture or focal lesion. Impression: 1. Some ventriculomegaly with proportionate atrophy, age appropriate. 2. Chronic small vessel white matter ischemic changes. 3. No mass, mass effect, edema, acute infarct, hemorrhage, abnormal enhancement to suggest metastatic disease nor any other acute finding. 4. Vascular calcifications vertebral basilar arteries. Electronically Signed by Kev Diallo MD 07/27/2019 07:03 P
[2019-07-27] MEDS ORDERED: METOPROLOL 5 MG/5 ML VIAL IV STA (11:56)
[2019-07-27] MEDS ORDERED: FUROSEMIDE 20 MG/2 ML VIAL (J1940) IV ONE (13:00)
--- NOTE | 2019-07-27 14:07 | IPNPDOC ---
Text Note Date of Service The patient was seen on 07/27/19. NOTE Subjective: Patient complains of mild abdominal discomfort. He had 3 bowel m ovements overnight. Patient had hypertensive urgency overnight. Later today patient developed some episodes of desaturation in mid 80s Objective: HEENT: Cachectic male CVS: S1-S2, regular rhythm Resp: Diminished lung sounds bilaterally, bilateral crackles Abd : Moderately distended, soft, hyperactive bowel sounds, diffuse mild tenderness, no rigidity, no rebound MSK: right bka Neuro: AOAx3, no confusion, no focal deficit Psych: Moves all 4 limbs, no nuchal rigidity Patient is 73 years old male with past medical history of COPD, hypertension presented to the hospital with chest, left shoulder, left knee, and abdominal pain. Patient was found to have atrial flutter, he received diltiazem drip, his heart rate was converted to sinus. During hospital stay his heart rate was under control. Patient received treatment with Xarelto. Also patient was found to have upper left lung mass consistent with possible malignancy. Lung biopsy was done on 07/24/19. 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 Atrial flutter Resolved Restarted Xarelto today with aspirin. Hematuria resolved. DC Newberry Rate controlled Continue diltiazem by mouth, we will hold beta blockers due to COPD exacerbation Chest pain with elevated troponin Resolved Most likely demand ischemia Troponin trended down EKG did not show acute ischemic changes Acute hypoxemic respiratory failure Most likely secondary to volume overload He received Zosyn with normal saline with rate 100 cc, I discontinued Zosyn. I initiated Lasix IV. Patient developed good urine output, shortness of breath mar kedly improved Left lung mass Dr. Rivas did bronchoscopy with endobronchial ultrasound. 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 Bojorquez she recommended brain CT with contrast and follow-up with her after discharge Leukocytosis Unclear etiology for now Patient received Zosyn IV empirically due to high risk of bacterial translocation due to constipation. Patient was constipated for 8 days. Constipation resolved, however his leukocytosis continues to be 18.2. I repeated lactic acid, it was within normal limit, previous urine culture was positive for enterococcus, however patient received Zosyn which active against enterococcus. I changed Zosyn to Levaquin 750 PO Patient does not have fever, chills. Pro calcitonin pending COPD exacerbation Resolved. Patient has positive dynamics in breathing. Sputum culture was negative Blood culture was negative DuoNeb PRN I stopped prednisone by mouth Abdominal pain Mostly resolved, patient developed bowel movements with large amount of stool Patient did not have bowel movement for 1 week despite of laxatives. Patient has history of chronic constipation. Laxative dependent Hypertensive urgency I increased the dose of amlodipine to 10 mg Hematuria Secondary to traumatic Newberry placement. Resolved I DC Newberry Urinary retention Secondary to anesthesia after bronchoscopy and constipation Resolved I added tamsulosin DC Newberry Deconditioning PT OT evaluation Protein shake VS,Fishbone, I+O VS, Fishbone, I+O Laboratory Tests 07/27/19 05:21 Red Blood Count 4.68, Mean Corpuscular Volume 86.1, Mean Corpuscular Hemoglobin 27.8, Mean Corpuscular Hemoglobin Concent 32.3, Red Cell Distribution Width 19.2 H, Calcium Level 9.3 Vital Signs Date Time Temp Pulse Resp B/P (MAP) Pulse Ox O2 Delivery O2 Flow Rate FiO2 07/27/19 12:18 97.8 22 07/27/19 12:12 100 129/66 (87) 94 2.0 07/27/19 11:53 Nasal Cannula I&O- Last 24 Hours up to 6 AM 07/27/19 06:00 Intake Total 3380 ml Output Total 3225 ml Balance 155 ml JENNIFER JAMESON DO Jul 27, 2019 14:07
[2019-07-27] MEDS: NICOTINE 21MG/24HR 1 EA TRANSDERMAL TD SCH (17:02)
[2019-07-27] MEDS ORDERED: RIVAROXABAN 20 MG TAB (XARELTO) PO SCH (18:00)
[2019-07-27] MEDS: FINASTERIDE 5 MG TAB PO SCH (20:10)
[2019-07-27] MEDS: ATORVASTATIN 20 MG TAB PO SCH (20:11)
[2019-07-28] VITALS (26 sets, daily range): BP systolic 117–132; BP diastolic 56–65; O2SAT 87–97
[2019-07-28] MEDS: ANEXSIA, NORCO 7.5MG/325MG TABLET(HYDROCODONE/APAP) PO PRN ×2 (00:07→04:23)
[2019-07-28] MEDS: traMADol 50 MG TAB PO PRN ×3 (01:37→23:38)
[2019-07-28] MEDS ORDERED: hydrOXYzine 10 MG TAB PO STA (04:44)
[2019-07-28] MEDS ORDERED: hydrOXYzine 25 MG TAB PO STA (04:51)
[2019-07-28] MEDS: LevoFLOXacin 500 MG TABLET PO SCH (05:11)
[2019-07-28] MEDS: SLF 3 ML SYR IV SCH ×3 (05:12→20:39)
[2019-07-28 06:21] LABS: BLOOD UREA NITROGEN 18 MG/DL (7-18); CALCIUM LEVEL 9.7 MG/DL (8.8-10.2); CARBON DIOXIDE LEVEL 32 MEQ/L (21-32); CHLORIDE LEVEL 93 MEQ/L (98-107); CREATININE FOR GFR 1.04 MG/DL (0.70-1.30); GLOMERULAR FILTRATION RATE > 60.0 (>42); GLUCOSE, FASTING 110 MG/DL (70-100); MAGNESIUM LEVEL 2.8 MG/DL (1.8-2.4); POTASSIUM SERUM 4.2 MEQ/L (3.5-5.1); SODIUM LEVEL 130 MEQ/L (136-145)
[2019-07-28] MEDS: NS 1,000 ML IV SCH ×2 (07:42→19:56)
[2019-07-28] MEDS: MOM 30ML SUSPENSION UDC PO SCH ×2 (07:47→20:39)
[2019-07-28] MEDS: SENNA 8.6 MG TAB (SENOKOT) PO SCH ×2 (07:47→20:40)
[2019-07-28] MEDS: BISACODYL 5 MG TAB PO SCH (07:48)
[2019-07-28 08:26] LABS: HEMATOCRIT 40.7 % (42.0-52.0); HEMOGLOBIN 12.8 g/dl (13.5-17.5); MEAN CORPUSCULAR HEMOGLOBIN 28.5 pg (27.0-33.0); MEAN CORPUSCULAR HGB CONC 31.4 g/dl (32.0-36.5); MEAN CORPUSCULAR VOLUME 90.6 fl (80.0-96.0); PLATELET COUNT, AUTOMATED 239 10^3/uL (150-450); RED BLOOD COUNT 4.49 10^6/uL (4.30-6.10); WHITE BLOOD COUNT 16.7 10^3/uL (4.0-10.0)
[2019-07-28] MEDS: FUROSEMIDE 20 MG/2 ML VIAL (J1940) IV SCH (08:57)
[2019-07-28] MEDS: TAMSULOSIN 0.4 MG CAP PO SCH (08:57)
[2019-07-28] MEDS: amLODIPine 10 MG TAB PO SCH (08:57)
[2019-07-28] MEDS: THIAMINE 100 MG TAB PO SCH (08:57)
[2019-07-28] MEDS: ASPIRIN 81 MG ENTERIC TAB PO SCH (08:58)
[2019-07-28] MEDS: FOLIC ACID 1 MG TAB PO SCH (08:58)
[2019-07-28] MEDS: NICOTINE 21MG/24HR 1 EA TRANSDERMAL TD SCH (08:58)
[2019-07-28] MEDS: NYSTATIN 500,000 U/5 ML SUSP UDC SS SCH ×2 (08:58→20:41)
--- NOTE | 2019-07-28 10:55 | IPNPDOC ---
Text Note Date of Service The patient was seen on 07/28/19. NOTE Subjective: Patient developed urinary retention overnight with 1000 cc in his bladder, patient was catheterized, Newberry placed. Also patient had 17 beats of V. tach on telemetry. Patient complains of mouth ulcer on the left gum and internal part of his cheek Objective: HEENT: NAD CVS: S1-S2, regular rhythm Resp: Diminished lung sounds bilaterally, bilateral crackles Abd : Nontender, nondistended, no rigidity, no rebound MSK: right bka Neuro: AOAx3, no confusion, no focal deficit Psych: Moves all 4 limbs, no nuchal rigidity CT BRAIN WITHOUT AND WITH CONTRAST: 07/27/2019. Clinical history: Left lung mass, evaluate for metastatic disease in the brain. Technique: Precontrast imaging followed by bolus of 75 ml Isovue 370 with rescanning through the brain soft tissue and bone windows reviewed for each slice level. Findings: There are no prior studies. Precontrast images show the ventricles are midline symmetric, mildly dilated and in proportion to the diffuse cerebral atrophy. All of this is age appropriate and atrophy is greatest in the temporal and frontal lobes. Third and fourth ventricles were likewise unremarkable. Basal ganglia symmetric. The natarajan-white junction differentiation well maintained, but there are some heterogeneous low attenuation white matter changes within the cerebral hemispheres, suggesting chronic small vessel ischemic di sease of aging. Cortical stripe shows atrophy but no evidence for acute infarct, hemorrhage, mass or mass effect. No extra-axial fluid collections. Brainstem was unremarkable. Cerebellum shows some mild atrophy but no mass. There are vascular calcifications in the carotid siphons and vertebral basilar arteries. After contrast administration. There is no abnormal meningeal enhancement, enhancing mass, gyriform enhancement or vascular enhancement that would suggest aneurysm. The bone windows show the mastoids and visualized sinuses clear. Skull base and calvarium show no fracture or focal lesion. Impression: 1. Some ventriculomegaly with proportionate atrophy, age appropriate. 2. Chronic small vessel white matter ischemic changes. 3. No mass, mass effect, edema, acute infarct, hemorrhage, abnormal enhancement to suggest metastatic disease nor any other acute finding. 4. Vascular calcifications vertebral basilar arteries. Patient is 73 years old male with past medical history of COPD, hypertension presented to the hospital with chest, left shoulder, left knee, and abdominal pain. Patient was found to have atrial flutter, he received diltiazem drip, his heart rate was converted to sinus. During hospital stay his heart rate was under control. Patient received treatment with Xarelto. Also patient was found to have upper left lung mass consistent with possible malignancy. Lung biopsy was done on 07/24/19. 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 Atrial flutter Resolved Restarted Xarelto with aspirin. Rate controlled Continue diltiazem by mouth, we will hold beta blockers due to COPD V. tach Patient developed overnight 70 beats of V. tach Repeat EKG, appreciate/agree with layup worker consult Chest pain with elevated troponin Resolved Most likely demand ischemia Troponin trended down EKG did not show acute ischemic changes Acute hypoxemic respiratory failure Most likely secondary to volume overload He received Zosyn with normal saline with rate 100 cc, I discontinued Zosyn. I initiated Lasix IV. Patient developed good urine output, shortness of breath markedly improved -Will repeat chest x-ray Left lung mass Dr. Rivas did bronchoscopy with endobronchial ultrasound. 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 Bojorquez she recommended brain CT with contrast and follow-up with her after discharge Brain CT was negative for metastases Leukocytosis Improved Patient received Zosyn IV empirically due to high risk of bacterial translocation due to constipation. Patient was constipated for 8 days. Constipation resolved lactic acid within normal limit, previous urine culture was positive for enterococcus, however patient received Zosyn which active against enterococcus. I changed Zosyn to Levaquin PO Patient does not have fever, chills. Pro calcitonin negative COPD exacerbation Resolved. Sputum culture was negative Blood culture was negative DuoNeb PRN I stopped prednisone by mouth Abdominal pain Mostly resolved, patient developed bowel movements with large amount of stool Patient did not have bowel movement for 1 week despite of laxatives. Patient has history of chronic constipation. Laxative dependent Hypertensive urgency I increased the dose of amlodipine to 10 mg on 07/27/19 Hematuria Secondary to traumatic Newberry placement. Resolved However patient developed again retention on 07/28/19 Urinary retention Secondary to anesthesia after bronchoscopy and constipation I added tamsulosin and Proscar Unfortunately patient developed urinary retention again, Newberry was placed on 07/28/19 Mouth ulcer Secondary to Stephany infection Nystatin mouthwash Deconditioning PT OT evaluation Protein shake VS,Fishbone, I+O VS, Fishbone, I+O Laboratory Tests 07/28/19 05:32 Calcium Level 9.7 07/28/19 08:03 Red Blood Count 4.49, Mean Corpuscular Volume 90.6, Mean Corpuscular Hemoglobin 28.5, Mean Corpuscular Hemoglobin Concent 31.4 L, Red Cell Distribution Width 19.6 H Vital Signs Date Time Temp Pulse Resp B/P (MAP) Pulse Ox O2 Delivery O2 Flow Rate FiO2 07/28/19 09:00 97 Nasal Cannula 1.0 07/28/19 08:57 118/68 07/28/19 08:00 96.6 90 18 I&O- Last 24 Hours up to 6 AM 07/28/19 06:00 Intake Total 2580 ml Output Total 1400 ml Balance 1180 ml JENNIFER JAMESON DO Jul 28, 2019 10:55
[2019-07-28] MEDS: ACETAMINOPHEN TAB 650MG DOSE (2X325MG) PO PRN ×2 (12:29→17:18)
[2019-07-28] MEDS: IPRATROPIUM 0.5MG/ALBUTEROL 2.5MG INH SOL UD 3ML (DUONEB)(J7620) NEB PRN (12:39)
--- NOTE | 2019-07-28 14:25 | REP ---
REASON: Dyspnea. COMPARISON: Multiple, the latest prior is 07/24/2019. Large left upper lobe opacity status quo. Evidence of fibrotic change status quo. No definite acute patchy parenchymal opacities or pleural effusions have developed. There is no significant change in the appearance of the osseous structures. IMPRESSION: Stable chest with findings as described above. Electronically Signed by Magdaleno Flynn DO 07/28/2019 02:40 P
--- NOTE | 2019-07-28 17:35 | CR ---
DATE OF CONSULTATION: 07/28/2019 at 3:30 p.m. HISTORY OF THE PRESENT ILLNESS Mr. Lei Gao is a pleasant 73-year-old man who was hospitalized on this occasion, 07/20/2019, after presenting to the emergency room with complaints of shortness of breath. The patient has chronic obstructive pulmonary disease (COPD) and systemic hypertension. He was reporting pain involving his chest, left shoulder, abdomen and left knee at the time of admission. I found the patient to be a poor historian. It appears from the admission history and physical that the patient was initially thought to have new onset atrial flutter with rapid ventricular rate and received digoxin for this in the emergency room, as well as diltiazem. He was switched from metoprolol to diltiazem during this hospitalization and placed on Xarelto. I cannot find any rhythm strip or ECG documentation of the presumed atrial flutter. While in the hospital, the patient was discovered to have a lung mass, which turned out to be squamous cell carcinoma. He was found to have right bundle branch block with left anterior fascicular block. He had an elevated NT-Pro-BNP and an indeterminate level troponin I. In the hospital, he has been having sporadic occurrence of nonsustained monomorphic ventricular tachycardia. Echocardiogram Doppler 07/22/2019 reported normal left ventricular (LV) systolic function. Left ventricular ejection fraction (LVEF) 60%. Normal LV size and wall thickness. Dilated right atrium and right ventricle. Septal wall motion abnormality thought to be secondary to right ventricle pressure overload. LV diastolic dysfunction. Moderate age degenerative changes of the aortic valve with mild aortic stenosis and mild aortic regurgitation. Mild mitral annular calcification with mild mitral regurgitation. Mild tricuspid regurgitation. CARDIAC SYMPTOM STATUS: When asked about chest pain, the patient points to the xiphoid area to the epigastric area. He was unable to describe the chest pain any further than that. He has shortness of breath with minimal activity. No presyncope or syncope. Denies any palpitations. No embolic events. No claudication. OTHER PAST MEDICAL AND SURGICAL HISTORY: Left upper lobe squamous cell carcinoma (diagnosis this admission), long-standing shortness of breath with minimal activity. Cough with clear sputum. No hemoptysis. Decreased appetite and progressive weight loss. COPD. Right below-knee amputation about 8 years ago due to vascular disease. Prior extensive smoking history. REVIEW OF SYSTEMS: No fever or chills or night sweats. 20-pound weight loss over the past 1 year. Decreased appetite. Shortness of breath with minimal activity. Occasional cough with clear sputum. Status post right below-knee amputation. Generalized muscle weakness. All other 10-point review of systems negative. SOCIAL HISTORY: Prior alcoholism for which he quit drinking 10 years ago. 65-year smoking history. He has been smoking one pack a day for the past 3 years. Prior to that, he was smoking up to four packs of cigarettes a day. FAMILY HISTORY: Coronary artery disease. No family history of lung cancer. ADVERSE DRUG REACTIONS: OXYCODONE. MEDICATIONS PRIOR TO ADMISSION: - acetaminophen 650 mg every 6 hours as needed - Ventolin HFA two puffs every 4 hours as needed - amlodipine 5 mg daily - aspirin 81 mg daily - atorvastatin 80 mg nightly - vitamin D 800 units daily and 400 units by mouth every evening - folic acid 2 mg by mouth daily - hydrocodone/acetaminophen one five times per day as needed - probiotic one capsule twice a day - metoprolol tartrate 50 mg twice a day - thiamine 100 mg by mouth daily CURRENT MEDICATIONS IN THE HOSPITAL ARE FOLLOWS: - acetaminophen 650 mg by mouth every 4 hours as needed - albuterol two puffs every 4 hours as needed - DuoNebs every 4 hours as needed - amlodipine 10 mg daily - aspirin 81 mg daily - atorvastatin 80 mg daily - Dulcolax tablets 10 mg daily - diltiazem 60 mg by mouth every 6 hours - Proscar 5 mg nightly - folic acid 2 mg daily - furosemide 20 mg IV twice a day - Levaquin 500 mg by mouth daily - Milk of Magnesia 30 mL by mouth twice a day - nicotine 21 mg per day transdermal patch one daily - Nystatin 5 mL swish and swallow twice a day - MiraLAX one packet daily as needed for constipation - Senna two tablets twice a day by mouth - tamsulosin 0.8 mg daily - thiamine 100 mg by mouth daily - Ultram 50 mg every 8 hours as needed PHYSICAL EXAMINATION: Pleasant elderly man who is not in any respiratory or psychologic distress. He appears underweight and close to appearing cachectic. . Height 68 inches, weight 55.9 kilograms, body mass index (BMI) 18.7 (status post right below-knee amputation). Temperature 98.2, respiratory rate 16, blood pressure 131/62, oxygen saturation 94% on oxygen (O2) one liter per minute by nasal cannula. Blood pressure 131/62. No conjunctival pallor, scleral icterus, or xanthomas. Edentulous. Oral mucosa was moist and without pallor or cyanosis. Jugular venous pulsations were at 2 cm. Trachea midline. No palpable thyroid. No clubbing, nail bed cyanosis or splinter hemorrhages. No skin lesions, skin pallor, or icterus. Oriented to person, place and time. Mood and affect normal. Curvature of the spine appeared normal. Gait was not tested (status post right below-knee amputation). Gross motor strength and tone appear to be mild generalized weakness. Generalized mild muscle atrophy. No fasciculations or tremors. Respiratory expansion and effort was fair. No crackles or wheezes appreciated. No palpable apex beat. No parasternal lifts, heaves, thrills, or palpable heart sounds. First and second heart sounds were mildly diminished. Widely split second heart sound. No S3 or S4. Grade 1 systolic ejection murmur right second interspace without radiation. Carotids normal in volume and contour and without bruits. Abdominal aorta 3 cm. No abdominal bruits. Pedal pulses: Normal left pedal pulses. Status post right below-knee amputation. No peripheral edema. No varicose veins. Abdomen was soft and nontender with normal bowel sounds. No hepatosplenomegaly or other organomegaly. Liver span 12 cm in right midclavicular Stool for occult blood not presently indicated. INVESTIGATIONS: I have reviewed all of the available rhythm strips on this admission obtained on telemetry in the progressive care unit, and I see episodes of nonsustained ventricular tachycardia, and I see sinus rhythm and sinus tachycardia, but I do not see any episodes of atrial fibrillation or atrial flutter. I have reviewed the patient's 12-lead electrocardiograms from the ER 07/20/2019 at 1214 hours, which shows sinus tachycardia, right bundle branch block with superior axis and some premature atrial contractions (PACs). I have looked through all the available electrocardiograms obtained while the patient has been in the progressive care unit thus far on this hospitalization, and I do not see any showing atrial flutter or atrial fibrillation. LABORATORY WORK 07/28/2019 WAS REVIEWED: WBC 16.7, hemoglobin 12.8, hematocrit 40.7, platelets 239, sodium 130, potassium 4.2, chloride 93, CO2 32, BUN 18, creatinine 1.04, estimated GFR greater than 60, glucose 110, calcium 9.7, magnesium 2.8 (elevated). Chest x-ray, PA and lateral, 07/28/2019 reported a large left upper lobe opacity, status quo. Fibrotic changes, status quo. No definite acute patchy parenchymal opacities or pleural effusions. ASSESSMENT AND PLAN: 1. Recurrent nonsustained monomorphic ventricular tachycardia. Patient has normal LV systolic function. He is not symptomatic with nonsustained ventricular tachycardia. There really is no justification for use of anti-arrhythmic drugs for nonsustained monomorphic ventricular tachycardia in a patient with preserved LV systolic function. There is also no role for an implantable cardioverter defibrillator (ICD). His potassium and magnesium levels are normal. He used to drink alcohol but not currently drink alcohol. 2. Right bundle branch block with superior axis. Likely related to lung disease. No presyncope or syncope. 3. Degenerative, calcific aortic valve disease with mild aortic stenosis and mild aortic regurgitation. Stable. 4. Systemic hypertension. Blood pressure mostly controlled. Since I do not find any solid documentation of atrial flutter during this hospitalization, I suggest switching the patient back from diltiazem over to metoprolol, which he was on prior to admission. Continue amlodipine at the current dosage. I do not think he needs to be on IV furosemide anymore. 5. Hypercholesterolemia. Continue atorvastatin 80 mg daily. Recommend a Dietary Approaches to Stop Hypertension (DASH) diet. 6. Right heart failure. The patient had an elevated NT-Pro-BNP. At the moment, he appears compensated on examination. The right heart failure is secondary to chronic cor pulmonale secondary to chronic lung disease. The IV furosemide could be changed to oral furosemide. The main management will also be avoidance of hypoxemia and treatment of the underlying lung disease. 7. Premature atrial contractions. The patient has frequent PACs. Recommend switching the patient from diltiazem back to metoprolol. I explained to Dr. Basim Lion that I do not find any rhythm strip documentation of atrial flutter on this admission. I am very concerned about this patient's increased risk of bleeding to be on Xarelto in the setting of lung cancer and also his risk for falls because of his debilitated state and status post right below-knee amputation. In the absence of solid documentation of atrial flutter, I feel very uncomfortable about having this patient on a direct oral anticoagulant.
[2019-07-28] MEDS: FINASTERIDE 5 MG TAB PO SCH (20:40)
[2019-07-28] MEDS: ATORVASTATIN 20 MG TAB PO SCH (20:40)
[2019-07-28] MEDS: METOPROLOL TART 50 MG TAB PO SCH (20:41)
[2019-07-29] VITALS (10 sets, daily range): BP systolic 113–127; BP diastolic 55–59; O2SAT 94–97
[2019-07-29] MEDS: ACETAMINOPHEN TAB 650MG DOSE (2X325MG) PO PRN (02:41)
[2019-07-29] MEDS ORDERED: NORCO, ANEXSIA 5/325MG TABLET (HYDROcodone/ACETAMINOPHEN) PO ONE (03:30)
[2019-07-29] MEDS: LevoFLOXacin 500 MG TABLET PO SCH (05:00)
[2019-07-29] MEDS: SLF 3 ML SYR IV SCH ×3 (05:01→21:33)
[2019-07-29 06:37] LABS: BLOOD UREA NITROGEN 14 MG/DL (7-18); CALCIUM LEVEL 8.9 MG/DL (8.8-10.2); CARBON DIOXIDE LEVEL 36 MEQ/L (21-32); CHLORIDE LEVEL 95 MEQ/L (98-107); CREATININE FOR GFR 0.93 MG/DL (0.70-1.30); GLOMERULAR FILTRATION RATE > 60.0 (>42); GLUCOSE, FASTING 91 MG/DL (70-100); MAGNESIUM LEVEL 2.4 MG/DL (1.8-2.4); POTASSIUM SERUM 3.8 MEQ/L (3.5-5.1); SODIUM LEVEL 132 MEQ/L (136-145)
[2019-07-29] MEDS: BISACODYL 5 MG TAB PO SCH (07:55)
[2019-07-29] MEDS: NS 1,000 ML IV SCH ×2 (07:55→08:58)
[2019-07-29] MEDS: NYSTATIN 500,000 U/5 ML SUSP UDC SS SCH ×2 (08:59→21:32)
[2019-07-29] MEDS: NICOTINE 21MG/24HR 1 EA TRANSDERMAL TD SCH (08:59)
[2019-07-29] MEDS: SENNA 8.6 MG TAB (SENOKOT) PO SCH ×2 (09:00→21:32)
[2019-07-29] MEDS: MOM 30ML SUSPENSION UDC PO SCH ×2 (09:00→21:32)
[2019-07-29] MEDS: ASPIRIN 81 MG ENTERIC TAB PO SCH (09:00)
[2019-07-29] MEDS: amLODIPine 10 MG TAB PO SCH (09:00)
[2019-07-29] MEDS: TAMSULOSIN 0.4 MG CAP PO SCH (09:00)
[2019-07-29] MEDS: THIAMINE 100 MG TAB PO SCH (09:00)
[2019-07-29] MEDS: FOLIC ACID 1 MG TAB PO SCH (09:00)
[2019-07-29] MEDS: METOPROLOL TART 50 MG TAB PO SCH ×2 (09:01→21:33)
--- NOTE | 2019-07-29 10:59 | IPNPDOC ---
Subjective Date Seen The patient was seen on 07/29/19. Subjective Chief Complaint/HPI Patient with indwelling Newberry catheter none in normal sinus rhythm, in no apparent distress on 1 L oxygen by nasal cannula General: Denies: ROS Unobtainable, Chills, Night Sweats, Fatigue, Malaise, Normal Appetite, Other Symptoms Constitutional: Denies: Chills, Fever, Malaise, Night Sweats, Weakness, Fatigue, Weight Loss, Lethargy, Other Skin: Denies: Rash, Lesions, Jaundice, Bruising, Itching, Dry, Breakdown, Nail Changes, Other Pulmonary: Denies: Dyspnea, Cough Cardiovascular: Denies: Chest Pain, Palpitations, Orthopnea, Paroxysmal Noc. Dyspnea, Lt Headedness Gastrointestinal: Denies: Nausea, Vomiting, Abdominal Pain, Diarrhea, Constipation, Melena, Hematochezia, Other Symptoms Endocrine: Denies: Polydipsia, Polyphagia, Polyuria, Heat Intolerance, Cold Intolerance, Other Endocrine Sx Musculoskeletal: Denies: Neck Pain, Back Pain, Shoulder Pain, Arm Pain, Hand Pain, Leg Pain, Foot Pain, Joint Pain, Muscle Pain, Spasms, Other Symptoms Neurological: Denies: Weakness, Numbness, Incoordination, Change in speech, Confusion, Seizures, Other Symptoms Objective Physical Examination General Exam: Positive: Alert, Cooperative Eye Exam: Positive: PERRLA, Conjunctiva & lids normal ENT Exam: Positive: Atraumatic, Mucous membr. moist/pink Neck Exam: Positive: Supple Chest Exam: Positive: Clear to auscultation, Normal air movement Heart Exam: Positive: Rate Normal, Normal S1, Normal S2 Abdomen Exam: Positive: Normal bowel sounds, Soft Extremity Exam: Positive: Normal pulses Neuro Exam: Positive: Strength at 5/5 X4 ext, Sensation Intact Assessment /Plan Problems (1) COPD exacerbation Status: Acute Problem Text: Continue present meds improving very well We'll try to wean him off oxygen before discharge Continue DuoNeb treatment as per orders (2) Lung mass Status: Acute Problem Text: Patient diagnosed with squamous cell carcinoma on bronchoscopy Further treatment outpatient with with cancer Center (3) Atrial flutter with rapid ventricular response Status: Resolved Problem Text: Patient is in normal sinus rhythm Continue beta blockers No anticoagulation as per cardiology Continue home meds (4) UTI (urinary tract infection) Status: Acute Problem Text: UTI, secondary to Enterococcus faecalis WBC count is still high. On CBC Will change to by mouth Levaquin to Cipro IV for at least day or 2 Repeat labs in a.m. Plan/VTE VTE Prophylaxis Ordered?: Yes VS, I&O, 24H, Fishbone Vital Signs/I&O Vital Signs Date Time Temp Pulse Resp B/P (MAP) Pulse Ox O2 Delivery O2 Flow Rate FiO2 07/29/19 09:00 96 122/59 07/29/19 08:00 97.6 18 91 1.0 07/29/19 06:00 Nasal Cannula I&O- Last 24 Hours up to 6 AM 07/29/19 06:00 Intake Total 2700 ml Output Total 525 ml Balance 2175 ml Laboratory Data 24H LABS Laboratory Tests 2 07/29/19 05:44: Anion Gap 1L, Glomerular Filtration Rate > 60.0, Blood Urea Nitrogen 14, Creatinine 0.93, Sodium Level 132L, Potassium Level 3.8, Chloride Level 95L, Carbon Dioxide Level 36H, Calcium Level 8.9, Magnesium Level 2.4 CBC/BMP Laboratory Tests 07/29/19 05:44 Calcium Level 8.9 Microbiology Microbiology 07/26/19 Blood Culture - Preliminary, Resulted No Growth after 48 hours. All Specime... 07/26/19 Blood Culture - Preliminary, Resulted No Growth after 48 hours. All Specime... 07/25/19 Urine Culture - Final, Complete Enterococcus Faecalis 07/21/19 Gram Stain - Final, Complete 07/21/19 Sputum Culture - Final, Complete 07/21/19 Gram Stain - Final, Complete 07/21/19 Sputum Culture - Final, Complete 07/20/19 Urine Culture - Final, Complete 07/20/19 Respiratory Virus Panel (PCR) ([facility]) - Final, Complete 07/20/19 Blood Culture - Final, Complete NO GROWTH AFTER 5 DAYS 07/20/19 Respiratory Virus Panel (PCR) ([facility]) - Final, Complete 07/20/19 Gram Stain - Final, Complete 07/20/19 Sputum Culture - Final, Complete 07/20/19 Blood Culture - Final, Complete NO GROWTH AFTER 5 DAYS LOURDES LOUIS MD Jul 29, 2019 10:59
[2019-07-29] MEDS: MAGNESIUM CHLORIDE 64 MG TABCR (SLO MAG) PO SCH (11:02)
[2019-07-29] MEDS: traMADol 50 MG TAB PO PRN (11:02)
[2019-07-29] MEDS ORDERED: PERCOCET 5MG/325MG TAB PO PRN (12:30)
[2019-07-29] MEDS: NORCO, ANEXSIA 5/325MG TABLET (HYDROcodone/ACETAMINOPHEN) PO PRN ×2 (13:51→21:46)
[2019-07-29] MEDS: IPRATROPIUM 0.5MG/ALBUTEROL 2.5MG INH SOL UD 3ML (DUONEB)(J7620) NEB PRN (16:32)
--- NOTE | 2019-07-29 18:46 | CR ---
DATE OF CONSULTATION: 07/28/2019 This is a very pleasant 73-year-old male who had come into the emergency room on 07/20/2019 with a chief complaint of precordial chest pain. The patient was diagnosed with atrial flutter with rapid ventricular response. Incidentally, chest x-ray done for admission purposes had shown a large left upper lobe lesion. The patient relates that he had been following up with [facility] and that he had complained of shortness of breath for several months prior to his admission. The patient had a CT scan of the chest done on 07/20/2019 showing a mass measuring 7.5 cm extending into the mediastinum with some periaortic lymphadenopathy. There was also some mild subcarinal lymphadenopathy and encasement of the left subclavian artery. The trachea was shifted to the right. The patient underwent a fine-needle aspiration of the left upper lobe, which was consistent with a non-small cell lung carcinoma. The atypical cells appeared singly and in small clusters. Pathology cell block was consistent with squamous cell carcinoma. The patient is currently on telemetry and has had a rate control of his atrial flutter; however, has had occasional runs of ventricular tachycardia (v-tach) requiring continued stay. The patient's clinical course has also been complicated by urinary tract infection secondary to Enterococcus faecalis. The patient is currently comfortable, finds it difficult to speak for a long period of time, and his significant other, female, is currently at the bedside. The patient's past medical history includes chronic obstructive pulmonary disease (COPD), hypertension. He has also had cancer of the tongue, status post surgery, currently in remission. Chronic kidney disease, alcoholic liver disease. He has had a past surgical history of a right below-knee amputation (BKA), right inguinal hernia repair. SOCIAL HISTORY: He is a current smoker, has at least a 65-70 pack-year history of smoking. He stopped drinking a few years ago. Denies ethyl alcohol (EtOH). He is a retired . FAMILY HISTORY: Extensive cardiac history. ALLERGIES: OXYCODONE. MEDICATIONS: His current medications include amlodipine besylate, aspirin, atorvastatin calcium, cholecalciferol, folic acid, lactobacillus, metoprolol and thiamine. REVIEW OF SYSTEMS: He currently has no chest pain but is somewhat short of breath, is currently on oxygen therapy, is in bed and has a performance status currently of about a 3/4. He shows some signs of poor hygiene. PHYSICAL EXAMINATION: His vital signs are per RN sheet. HEENT: Normocephalic, atraumatic. Pupils equal, round, and reactive to light and accommodation. Extraocular movements intact. Sclerae is otherwise white, it is nonicteric. He has maldentition. Neck is supple. No obvious mass in the oral cavity. Chest: Decreased breath sounds at the bases. Cardiovascular: S1 and S2 are appreciated. The patient's rhythm was noted on telemetry with occasional atrial flutter. No signs of ventricular tachycardia were noted. Cardiovascular: Heart sounds are somewhat distant. S1 and S2 appreciated. Abdomen is soft. Please note the patient's right prior BKA on the right. Left shows no edema. On his laboratories from 07/28/2019, white count is 16.7, hemoglobin is 12.8 over 40.7, RDW of 19.6, platelets of 239. Serum chemistries show sodium of 130, potassium of 4.2, creatinine of 1.04, calcium of 9.7. On his imaging studies, the patient's CT of the abdomen and pelvis done on 07/25/2019 showed diffuse small bowel distension, multiple air-fluid levels, nonspecific. The adrenals are unremarkable. Pancreas and spleen are unremarkable. Hepatic parenchyma is homogeneous and unremarkable. Angiography done of the chest on 07/20/2019 shows a left upper lobe mass measuring 7.6 cm extending into the superior and posterior mediastinum. There is abutment with the adjacent vertebral bodies of the thoracic spine, and there is encasement of the proximal left subclavian artery. There is mediastinal lymphadenopathy, and no evidence of any pulmonary embolism. ASSESSMENT: At this time is squamous cell carcinoma of the lung with current cardiac arrhythmias. PLAN: The patient would need to have his cardiac condition stabilized. He also needs increased nutrition. At this particular junction, there is no chemotherapy that the patient would be able to tolerate given his current state of health and will await until the patient can have these conditions optimized before seeing him in an outpatient setting.
[2019-07-29] MEDS: FINASTERIDE 5 MG TAB PO SCH (21:32)
[2019-07-29] MEDS: ATORVASTATIN 20 MG TAB PO SCH (21:32)
[2019-07-30] VITALS (7 sets, daily range): BP systolic 96–131; BP diastolic 50–68
--- NOTE | 2019-07-30 00:26 | ECGEPIP ---
[facility] Test Date: 2019-07-28 Pat Name: KEELY STALLINGS Department: Room: [place] [address] Gender: Male Security Architect: ALEXANDRA : [id number] Requested By: JENNIFER JAMESON Order Number: [id number] Reading MD: Naseem Hicks Measurements Intervals [place] Rate: 103 P: 18 [place]: 140 QRS: 202 QRSD: 166 T: 26 QT: 389 QTc: 509 Interpretive Statements SINUS TACHYCARDIA POSSIBLE LEFT ATRIAL ENLARGEMENT MARKED RIGHT AXIS DEVIATION RIGHT BUNDLE BRANCH BLOCK AND POSSIBLE RIGHT VENTRICULAR HYPERTROPHY COMPARED TO THE LAST 3 TRACINGS IN THE SYSTEM, NO SIGNIFICANT CHANGES Electronically Signed on 07-30-2019 0:26:06 EDT by Naseem Hicks
[2019-07-30 05:24] LABS: BASO % 0.1 % (0.0-1.0); EOS # 0.2 10^3/uL (0.0-0.5); EOS % 1.4 % (0.0-3.0); HEMATOCRIT 38.6 % (42.0-52.0); HEMOGLOBIN 11.9 g/dl (13.5-17.5); LYMPH % 5.8 % (24.0-44.0); MEAN CORPUSCULAR HGB CONC 30.8 g/dl (32.0-36.5); MEAN CORPUSCULAR VOLUME 90.8 fl (80.0-96.0); NEUTROPHILS # 13.2 10^3/uL (1.5-8.5); NEUTROPHILS % 79.2 % (36.0-66.0); PLATELET COUNT, AUTOMATED 218 10^3/uL (150-450); RED BLOOD COUNT 4.25 10^6/uL (4.30-6.10); WHITE BLOOD COUNT 16.6 10^3/uL (4.0-10.0)
[2019-07-30] MEDS: NORCO, ANEXSIA 5/325MG TABLET (HYDROcodone/ACETAMINOPHEN) PO PRN ×4 (05:40→23:21)
[2019-07-30] MEDS: SLF 3 ML SYR IV SCH ×3 (05:41→22:00)
[2019-07-30 05:46] LABS: ALBUMIN 2.2 GM/DL (3.2-5.2); ALT/SGPT 16 U/L (12-78); BILIRUBIN,TOTAL 0.5 MG/DL (0.2-1.0); BLOOD UREA NITROGEN 13 MG/DL (7-18); CALCIUM LEVEL 9.2 MG/DL (8.8-10.2); CARBON DIOXIDE LEVEL 32 MEQ/L (21-32); CHLORIDE LEVEL 98 MEQ/L (98-107); CREATININE FOR GFR 0.91 MG/DL (0.70-1.30); GLOMERULAR FILTRATION RATE > 60.0 (>42); GLUCOSE, FASTING 92 MG/DL (70-100); POTASSIUM SERUM 4.2 MEQ/L (3.5-5.1); SODIUM LEVEL 135 MEQ/L (136-145); TOTAL PROTEIN 6.2 GM/DL (6.4-8.2)
[2019-07-30 05:52] LABS: MONO # 2.2 10^3/uL (0.0-0.8)
[2019-07-30] MEDS: MAGNESIUM CHLORIDE 64 MG TABCR (SLO MAG) PO SCH (08:32)
[2019-07-30] MEDS: METOPROLOL TART 50 MG TAB PO SCH ×2 (08:32→22:23)
[2019-07-30] MEDS: NYSTATIN 500,000 U/5 ML SUSP UDC SS SCH ×2 (08:32→22:23)
[2019-07-30] MEDS: MOM 30ML SUSPENSION UDC PO SCH ×2 (08:32→22:23)
[2019-07-30] MEDS: SENNA 8.6 MG TAB (SENOKOT) PO SCH ×2 (08:33→22:23)
[2019-07-30] MEDS: FOLIC ACID 1 MG TAB PO SCH (08:33)
[2019-07-30] MEDS: ASPIRIN 81 MG ENTERIC TAB PO SCH (08:33)
[2019-07-30] MEDS: TAMSULOSIN 0.4 MG CAP PO SCH (08:33)
[2019-07-30] MEDS: THIAMINE 100 MG TAB PO SCH (08:33)
[2019-07-30] MEDS: amLODIPine 10 MG TAB PO SCH (08:33)
[2019-07-30] MEDS: BISACODYL 5 MG TAB PO SCH (08:33)
[2019-07-30] MEDS: NICOTINE 21MG/24HR 1 EA TRANSDERMAL TD SCH (08:37)
[2019-07-30] MEDS ORDERED: LORazepam 1 MG TAB PO PRN (10:00)
--- NOTE | 2019-07-30 10:37 | IPNPDOC ---
Subjective Date Seen The patient was seen on 07/30/19. Subjective Chief Complaint/HPI Patient is very anxious, complains of shortness of breath, even on oxygen in no clinical respiratory distress. He is worried about his lung cancer General: Denies: ROS Unobtainable, Chills, Night Sweats, Fatigue, Malaise, N ormal Appetite, Other Symptoms Constitutional: Denies: Chills, Fever, Malaise, Night Sweats, Weakness, Fatigue, Weight Loss, Lethargy, Other Eyes: Denies: Pain, Vision change, Conjunctivae inflammation, Eyelid inflammation, Redness, Other ENT: Denies: Head Aches, Ear Pain, Dysphagia, Sinus Congestion, Post Nasal Drip, Sore Throat, Epistaxis, Other Symptoms Skin: Denies: Rash, Lesions, Jaundice, Bruising, Itching, Dry, Breakdown, Nail Changes, Other Pulmonary: Reports: Dyspnea Cardiovascular: Denies: Chest Pain, Palpitations, Orthopnea, Paroxysmal Noc. Dyspnea, Edema, Lt Headedness, Other Symptoms Gastrointestinal: Denies: Nausea, Vomiting, Abdominal Pain, Diarrhea, Constipation, Melena, Hematochezia, Other Symptoms Musculoskeletal: Denies: Neck Pain, Back Pain, Shoulder Pain, Arm Pain, Hand Pain, Leg Pain, Foot Pain, Joint Pain, Muscle Pain, Spasms, Other Symptoms Neurological: Denies: Weakness, Numbness, Incoordination, Change in speech, Confusion, Seizures, Other Symptoms Objective Physical Examination General Exam: Positive: Alert, Cooperative Eye Exam: Positive: PERRLA, Conjunctiva & lids normal ENT Exam: Positive: Atraumatic, Mucous membr. moist/pink Neck Exam: Positive: Supple Chest Exam: Positive: Clear to auscultation, Normal air movement Heart Exam: Positive: Rate Normal, Normal S1, Normal S2 Abdomen Exam: Positive: Normal bowel sounds, Soft Extremity Exam: Positive: Normal pulses Neuro Exam: Positive: Strength at 5/5 X4 ext, Sensation Intact Assessment /Plan Problems (1) COPD exacerbation Status: Acute Problem Text: Continue present meds improving very well Patient needs to be weaned off his oxygen before discharge On examination his lungs are clear to A&P Continue DuoNeb treatment as per orders Most likely symptoms secondary to anxiety Will order anxiolytic meds as needed His girlfriends is refusing to take care of him at home Discussed with social work and case management and discharge planning in progress (2) Lung mass Status: Acute Problem Text: Patient diagnosed with squamous cell carcinoma on bronchoscopy Further treatment outpatient with with cancer Center (3) Atrial flutter with rapid ventricular response Status: Resolved Problem Text: Patient is in normal sinus rhythm Continue beta blockers No anticoagulation as per cardiology Continue home meds (4) UTI (urinary tract infection) Status: Acute Problem Text: UTI, secondary to Enterococcus faecalis WBC count is still high. On CBC Will change to by mouth Levaquin to Cipro IV for at least day or 2 Repeat labs in a.m. (5) Protein calorie malnutrition Status: Chronic Problem Text: Underlying malignancy and poor oral intake Diet counseling was done at bedside Will order a dietary consultation Plan/VTE VTE Prophylaxis Ordered?: Yes VS, I&O, 24H, Jimbone Vital Signs/I&O Vital Signs Date Time Temp Pulse Resp B/P (MAP) Pulse Ox O2 Delivery O2 Flow Rate FiO2 07/30/19 08:40 22 07/30/19 08:33 93 118/68 07/30/19 08:00 97.3 98 1.0 07/29/19 06:00 Nasal Cannula I&O- Last 24 Hours up to 6 AM 07/30/19 06:00 Intake Total 470 ml Output Total 850 ml Balance -380 ml Laboratory Data 24H LABS Laboratory Tests 2 07/29/19 10:58: Magnesium Level 2.3 07/30/19 05:04: Immature Granulocyte % (Auto) 0.5, White Blood Count 16.6H, Red Blood Count 4.25L, Hemoglobin 11.9L, Hematocrit 38.6L, Mean Corpuscular Volume 90.8, Mean Corpuscular Hemoglobin 28.0, Mean Corpuscular Hemoglobin Concent 30.8L, Red Cell Distribution Width 19.4H, Platelet Count 218, Neutrophils (%) (Auto) 79.2H, Lymphocytes (%) (Auto) 5.8L, Monocytes (%) (Auto) 13.0H, Eosinophils (%) (Auto) 1.4, Basophils (%) (Auto) 0.1, Neutrophils # (Auto) 13.2H, Lymphocytes # (Auto) 1.0L, Monocytes # (Auto) 2.2H, Eosinophils # (Auto) 0.2, Basophils # (Auto) 0.0, Nucleated Red Blood Cells % (auto) 0.0, Anion Gap 5L, Glomerular Filtration Rate > 60.0, Blood Urea Nitrogen 13, Creatinine 0.91, Sodium Level 135L, Potassium Level 4.2, Chloride Level 98, Carbon Dioxide Level 32, Calcium Level 9.2, Aspartate Amino Transf (AST/SGOT) 20, Alanine Aminotransferase (ALT/SGPT) 16, Alkaline Phosphatase 73, Total Bilirubin 0.5, Total Protein 6.2L, Albumin 2.2L, Albumin/Globulin Ratio 0.55L CBC/BMP Laboratory Tests 07/30/19 05:04 Red Blood Count 4.25 L, Mean Corpuscular Volume 90.8, Mean Corpuscular Hemoglobin 28.0, Mean Corpuscular Hemoglobin Concent 30.8 L, Red Cell Distribution Width 19.4 H, Neutrophils (%) (Auto) 79.2 H, Lymphocytes (%) (Auto) 5.8 L, Monocytes (%) (Auto) 13.0 H, Eosinophils (%) (Auto) 1.4, Basophils (%) (Auto) 0.1, Neutrophils # (Auto) 13.2 H, Lymphocytes # (Auto) 1.0 L, Monocytes # (Auto) 2.2 H, Eosinophils # (Auto) 0.2, Basophils # (Auto) 0.0, Calcium Level 9.2, Aspartate Amino Transf (AST/SGOT) 20, Alanine Aminotransferase (ALT/SGPT) 16, Alkaline Phosphatase 73, Total Bilirubin 0.5, Total Protein 6.2 L, Albumin 2.2 L Microbiology Microbiology 07/26/19 Blood Culture - Preliminary, Resulted No Growth after 72 hours. All specime... 07/26/19 Blood Culture - Preliminary, Resulted No Growth after 72 hours. All specime... 07/25/19 Urine Culture - Final, Complete Enterococcus Faecalis 07/21/19 Gram Stain - Final, Complete 07/21/19 Sputum Culture - Final, Complete 07/21/19 Gram Stain - Final, Complete 07/21/19 Sputum Culture - Final, Complete 07/20/19 Urine Culture - Final, Complete 07/20/19 Respiratory Virus Panel (PCR) ([facility]) - Final, Complete 07/20/19 Blood Culture - Final, Complete NO GROWTH AFTER 5 DAYS 07/20/19 Respiratory Virus Panel (PCR) ([facility]) - Final, Complete 07/20/19 Gram Stain - Final, Complete 07/20/19 Sputum Culture - Final, Complete 07/20/19 Blood Culture - Final, Complete NO GROWTH AFTER 5 DAYS LOURDSE LOUIS MD Jul 30, 2019 10:37
[2019-07-30] MEDS: IPRATROPIUM 0.5MG/ALBUTEROL 2.5MG INH SOL UD 3ML (DUONEB)(J7620) NEB PRN (14:03)
[2019-07-30] MEDS: FINASTERIDE 5 MG TAB PO SCH (22:21)
[2019-07-30] MEDS: ATORVASTATIN 20 MG TAB PO SCH (22:22)
[2019-07-31] MEDS: traMADol 50 MG TAB PO PRN ×4 (01:13→22:39)
[2019-07-31 04:00] VITALS: BP 112/53
[2019-07-31] MEDS: IPRATROPIUM 0.5MG/ALBUTEROL 2.5MG INH SOL UD 3ML (DUONEB)(J7620) NEB PRN ×3 (04:58→22:52)
[2019-07-31 05:05] LABS: BASO % 0.1 % (0.0-1.0); EOS # 0.1 10^3/uL (0.0-0.5); HEMATOCRIT 36.9 % (42.0-52.0); HEMOGLOBIN 11.7 g/dl (13.5-17.5); LYMPH # 0.7 10^3/uL (1.5-5.0); LYMPH % 5.1 % (24.0-44.0); MEAN CORPUSCULAR HEMOGLOBIN 28.5 pg (27.0-33.0); MEAN CORPUSCULAR HGB CONC 31.7 g/dl (32.0-36.5); MEAN CORPUSCULAR VOLUME 89.8 fl (80.0-96.0); MONO # 1.8 10^3/uL (0.0-0.8); NEUTROPHILS # 11.3 10^3/uL (1.5-8.5); NEUTROPHILS % 80.3 % (36.0-66.0); PLATELET COUNT, AUTOMATED 219 10^3/uL (150-450); RED BLOOD COUNT 4.11 10^6/uL (4.30-6.10); WHITE BLOOD COUNT 14.1 10^3/uL (4.0-10.0)
[2019-07-31 05:28] LABS: ALBUMIN 2.2 GM/DL (3.2-5.2); ALT/SGPT 14 U/L (12-78); BILIRUBIN,TOTAL 0.7 MG/DL (0.2-1.0); BLOOD UREA NITROGEN 15 MG/DL (7-18); CALCIUM LEVEL 8.9 MG/DL (8.8-10.2); CARBON DIOXIDE LEVEL 32 MEQ/L (21-32); CHLORIDE LEVEL 99 MEQ/L (98-107); GLOMERULAR FILTRATION RATE > 60.0 (>42); GLUCOSE, FASTING 89 MG/DL (70-100); POTASSIUM SERUM 3.8 MEQ/L (3.5-5.1); SODIUM LEVEL 135 MEQ/L (136-145); TOTAL PROTEIN 6.3 GM/DL (6.4-8.2)
[2019-07-31] MEDS: SLF 3 ML SYR IV SCH ×3 (06:37→22:40)
[2019-07-31 08:00] VITALS: BP 80/50
[2019-07-31] MEDS: BISACODYL 5 MG TAB PO SCH (08:08)
[2019-07-31] MEDS: THIAMINE 100 MG TAB PO SCH (08:08)
[2019-07-31] MEDS: ASPIRIN 81 MG ENTERIC TAB PO SCH (08:09)
[2019-07-31] MEDS: SENNA 8.6 MG TAB (SENOKOT) PO SCH ×2 (08:09→20:15)
[2019-07-31] MEDS: NICOTINE 21MG/24HR 1 EA TRANSDERMAL TD SCH (08:10)
[2019-07-31] MEDS: FOLIC ACID 1 MG TAB PO SCH (08:10)
[2019-07-31] MEDS: MOM 30ML SUSPENSION UDC PO SCH ×2 (08:10→20:15)
[2019-07-31] MEDS: TAMSULOSIN 0.4 MG CAP PO SCH (08:10)
[2019-07-31] MEDS: NYSTATIN 500,000 U/5 ML SUSP UDC SS SCH ×2 (08:10→20:15)
[2019-07-31] MEDS: METOPROLOL TART 50 MG TAB PO SCH ×2 (08:58→20:15)
[2019-07-31] MEDS: amLODIPine 10 MG TAB PO SCH (08:59)
[2019-07-31] MEDS: MAGNESIUM CHLORIDE 64 MG TABCR (SLO MAG) PO SCH (08:59)
--- NOTE | 2019-07-31 10:55 | IPNPDOC ---
Subjective Date Seen The patient was seen on 07/31/19. Subjective Chief Complaint/HPI Yesterday patient got very disoriented after benzodiazepine was given for his anxiety disorder. He is back to his baseline but still very anxious and wants all his medications General: Reports: ROS Unobtainable Pulmonary: Denies: Dyspnea, Cough, Pleuritic Chest Pain, Other Symptoms Cardiovascular: Denies: Chest Pain, Palpitations, Orthopnea, Paroxysmal Noc. Dyspnea, Edema, Lt Headedness, Other Symptoms Gastrointestinal: Denies: Nausea, Vomiting, Abdominal Pain, Diarrhea, Constipation, Melena, Hematochezia, Other Symptoms Musculoskeletal: Denies: Neck Pain, Back Pain, Shoulder Pain, Arm Pain, Hand Pain, Leg Pain, Foot Pain, Joint Pain, Muscle Pain, Spasms, Other Symptoms Neurological: Denies: Weakness, Numbness, Incoordination, Change in speech, Confusion, Seizures, Other Symptoms Objective Physical Examination Neck Exam: Positive: Supple Chest Exam: Positive: Clear to auscultation, Normal air movement Heart Exam: Positive: Rate Normal, Normal S1, Normal S2 Abdomen Exam: Positive: Normal bowel sounds, Soft Extremity Exam: Positive: Normal pulses Assessment /Plan Problems (1) COPD exacerbation Status: Acute Problem Text: Continue present meds improving very well has been weaned off from his oxygen. He is on room air, now On examination his lungs are clear to A&P Continue DuoNeb treatment as per orders Patient developed adverse affects to benzodiazepine hence benzodiazepine has been stopped Will start BuSpar and Paxil for anxiety disorder Discharge planning in the progress (2) Lung mass Status: Acute Problem Text: Patient diagnosed with squamous cell carcinoma on bronchoscopy Further treatment outpatient with with cancer Center (3) Atrial flutter with rapid ventricular response Status: Resolved Problem Text: Patient is in normal sinus rhythm Continue beta blockers No anticoagulation as per cardiology Continue home meds (4) UTI (urinary tract infection) Status: Acute Problem Text: UTI, secondary to Enterococcus faecalis WBC count is still high. On CBC Will change to by mouth Levaquin to Cipro IV for at least day or 2 Repeat labs in a.m. (5) Protein calorie malnutrition Status: Chronic Problem Text: Underlying malignancy and poor oral intake Diet counseling was done at bedside Will order a dietary consultation Plan/VTE VTE Prophylaxis Ordered?: Yes VS, I&O, 24H, Fishbone Vital Signs/I&O Vital Signs Date Time Temp Pulse Resp B/P (MAP) Pulse Ox O2 Delivery O2 Flow Rate FiO2 07/31/19 08:59 96 80/50 07/31/19 08:00 98.7 24 90 07/31/19 04:00 1.0 07/29/19 06:00 Nasal Cannula I&O- Last 24 Hours up to 6 AM 07/31/19 06:00 Intake Total 720 ml Output Total 575 ml Balance 145 ml Laboratory Data 24H LABS Laboratory Tests 2 07/31/19 04:37: Immature Granulocyte % (Auto) 0.5, White Blood Count 14.1H, Red Blood Count 4.11L, Hemoglobin 11.7L, Hematocrit 36.9L, Mean Corpuscular Volume 89.8, Mean Corpuscular Hemoglobin 28.5, Mean Corpuscular Hemoglobin Concent 31.7L, Red Cell Distribution Width 19.2H, Platelet Count 219, Neutrophils (%) (Auto) 80.3H, Lymphocytes (%) (Auto) 5.1L, Monocytes (%) (Auto) 13.0H, Eosinophils (%) (Auto) 1.0, Basophils (%) (Auto) 0.1, Neutrophils # (Auto) 11.3H, Lymphocytes # (Auto) 0.7L, Monocytes # (Auto) 1.8H, Eosinophils # (Auto) 0.1, Basophils # (Auto) 0.0, Nucleated Red Blood Cells % (auto) 0.0, Anion Gap 4L, Glomerular Filtration Rate > 60.0, Blood Urea Nitrogen 15, Creatinine 0.80, Sodium Level 135L, Potassium Level 3.8, Chloride Level 99, Carbon Dioxide Level 32, Calcium Level 8.9, Aspartate Amino Transf (AST/SGOT) 18, Alanine Aminotransferase (ALT/SGPT) 14, Alkaline Phosphatase 76, Total Bilirubin 0.7, Total Protein 6.3L, Albumin 2.2L, Albumin/Globulin Ratio 0.54L CBC/BMP Laboratory Tests 07/31/19 04:37 Red Blood Count 4.11 L, Mean Corpuscular Volume 89.8, Mean Corpuscular Hemog lobin 28.5, Mean Corpuscular Hemoglobin Concent 31.7 L, Red Cell Distribution Width 19.2 H, Neutrophils (%) (Auto) 80.3 H, Lymphocytes (%) (Auto) 5.1 L, Monocytes (%) (Auto) 13.0 H, Eosinophils (%) (Auto) 1.0, Basophils (%) (Auto) 0.1, Neutrophils # (Auto) 11.3 H, Lymphocytes # (Auto) 0.7 L, Monocytes # (Auto) 1.8 H, Eosinophils # (Auto) 0.1, Basophils # (Auto) 0.0, Calcium Level 8.9, Aspartate Amino Transf (AST/SGOT) 18, Alanine Aminotransferase (ALT/SGPT) 14, Alkaline Phosphatase 76, Total Bilirubin 0.7, Total Protein 6.3 L, Albumin 2.2 L Microbiology Microbiology 07/26/19 Blood Culture - Preliminary, Resulted No Growth after 72 hours. All specime... 07/26/19 Blood Culture - Preliminary, Resulted No Growth after 72 hours. All specime... 07/25/19 Urine Culture - Final, Complete Enterococcus Faecalis 07/21/19 Gram Stain - Final, Complete 07/21/19 Sputum Culture - Final, Complete 07/21/19 Gram Stain - Final, Complete 07/21/19 Sputum Culture - Final, Complete LOURDES LOUIS MD Jul 31, 2019 10:55
[2019-07-31 12:00] VITALS: BP 102/55
[2019-07-31] MEDS: busPIRone 10 MG TAB PO SCH ×2 (14:25→20:14)
[2019-07-31 16:00] VITALS: BP 113/59
[2019-07-31] MEDS: NORCO, ANEXSIA 5/325MG TABLET (HYDROcodone/ACETAMINOPHEN) PO PRN (17:37)
[2019-07-31 19:25] VITALS: BP 129/71
[2019-07-31] MEDS: ATORVASTATIN 20 MG TAB PO SCH (20:14)
[2019-07-31] MEDS: FINASTERIDE 5 MG TAB PO SCH (20:14)
[2019-07-31] MEDS ORDERED: PARoxetine 10MG TABLET PO SCH (21:00)
[2019-07-31 23:59] VITALS: BP 110/58
[2019-08-01] MEDS: NORCO, ANEXSIA 5/325MG TABLET (HYDROcodone/ACETAMINOPHEN) PO PRN ×3 (01:09→14:40)
[2019-08-01 04:00] VITALS: BP 103/56
[2019-08-01] MEDS: IPRATROPIUM 0.5MG/ALBUTEROL 2.5MG INH SOL UD 3ML (DUONEB)(J7620) NEB PRN (04:22)
[2019-08-01] MEDS: ACETAMINOPHEN TAB 650MG DOSE (2X325MG) PO PRN (05:30)
[2019-08-01] MEDS: SLF 3 ML SYR IV SCH ×2 (06:10→14:35)
[2019-08-01 07:49] LABS: BASO % 0.1 % (0.0-1.0); EOS # 0.1 10^3/uL (0.0-0.5); HEMATOCRIT 34.5 % (42.0-52.0); HEMOGLOBIN 10.5 g/dl (13.5-17.5); LYMPH % 7.1 % (24.0-44.0); MEAN CORPUSCULAR HEMOGLOBIN 27.3 pg (27.0-33.0); MEAN CORPUSCULAR HGB CONC 30.4 g/dl (32.0-36.5); MEAN CORPUSCULAR VOLUME 89.6 fl (80.0-96.0); MONO # 1.8 10^3/uL (0.0-0.8); MONO % 13.5 % (0.0-5.0); NEUTROPHILS # 10.5 10^3/uL (1.5-8.5); NEUTROPHILS % 77.8 % (36.0-66.0); PLATELET COUNT, AUTOMATED 225 10^3/uL (150-450); RED BLOOD COUNT 3.85 10^6/uL (4.30-6.10); WHITE BLOOD COUNT 13.5 10^3/uL (4.0-10.0)
[2019-08-01 08:00] VITALS: BP 120/58
[2019-08-01 08:05] LABS: ALBUMIN 2.2 GM/DL (3.2-5.2); ALT/SGPT 11 U/L (12-78); BILIRUBIN,TOTAL 0.5 MG/DL (0.2-1.0); BLOOD UREA NITROGEN 19 MG/DL (7-18); CARBON DIOXIDE LEVEL 32 MEQ/L (21-32); CHLORIDE LEVEL 98 MEQ/L (98-107); CREATININE FOR GFR 0.98 MG/DL (0.70-1.30); GLOMERULAR FILTRATION RATE > 60.0 (>42); GLUCOSE, FASTING 131 MG/DL (70-100); POTASSIUM SERUM 3.6 MEQ/L (3.5-5.1); SODIUM LEVEL 136 MEQ/L (136-145); TOTAL PROTEIN 5.9 GM/DL (6.4-8.2)
[2019-08-01] MEDS: BISACODYL 5 MG TAB PO SCH (09:21)
[2019-08-01] MEDS: SENNA 8.6 MG TAB (SENOKOT) PO SCH (09:22)
[2019-08-01] MEDS: FOLIC ACID 1 MG TAB PO SCH (09:22)
[2019-08-01] MEDS: THIAMINE 100 MG TAB PO SCH (09:22)
[2019-08-01] MEDS: amLODIPine 10 MG TAB PO SCH (09:22)
[2019-08-01] MEDS: TAMSULOSIN 0.4 MG CAP PO SCH (09:22)
[2019-08-01 09:24] VITALS: BP 129/83
[2019-08-01] MEDS: MAGNESIUM CHLORIDE 64 MG TABCR (SLO MAG) PO SCH (09:24)
[2019-08-01] MEDS: ASPIRIN 81 MG ENTERIC TAB PO SCH (09:24)
[2019-08-01] MEDS: MOM 30ML SUSPENSION UDC PO SCH (09:24)
[2019-08-01] MEDS: METOPROLOL TART 50 MG TAB PO SCH (09:24)
[2019-08-01] MEDS: busPIRone 10 MG TAB PO SCH (09:24)
[2019-08-01] MEDS: NYSTATIN 500,000 U/5 ML SUSP UDC SS SCH (09:24)
[2019-08-01] MEDS: NICOTINE 21MG/24HR 1 EA TRANSDERMAL TD SCH (09:25)
[2019-08-01] MEDS ORDERED: FLOM0.4C39 PO (10:01)
[2019-08-01] MEDS ORDERED: PARO5TAB PO (10:01)
[2019-08-01] MEDS ORDERED: FINA5TAB2 PO (10:01)
[2019-08-01] MEDS ORDERED: AMLO10TA5 PO (10:01)
[2019-08-01] MEDS ORDERED: MAGN64TASA PO (10:01)
[2019-08-01] MEDS ORDERED: BUSP10TA PO (10:01)
[2019-08-01] MEDS: traMADol 50 MG TAB PO PRN (13:52)
--- NOTE | 2019-08-01 14:06 | DS.PDOC ---
Discharge Summary General Date of Admission Jul 20, 2019 at 16:42 Date of Discharge 08/01/2019 Attending Physician: LOURDES LOUIS MD Discharge Summary PROCEDURES PERFORMED DURING STAY: None. ADMITTING DIAGNOSES: 1. Exacerbation of COPD, lung mass. DISCHARGE DIAGNOSES: 1. Exacerbation of COPD, squamous cell carcinoma of lung. A flutter , urinary retention, ileus ,anxiety disorder . COMPLICATIONS/CHIEF COMPLAINT: Atrial Flutter W Rvr Copd Exacerbation Lung Mass. HISTORY OF PRESENT ILLNESS: Patient is 73 years old male with past medical history of COPD, hypertension presented hospital with chest, left shoulder, left knee, and abdominal pain. Patient was found to have atrial flutter, he received diltiazem drip, his heart rate was converted to sinus. Also patient was found to have upper left lung mass consistent with possible malignancy. HOSPITAL COURSE: Mayra a long protracted stay in the hospital secondary to exacerbation of COPD initially was admitted to ICU. Later on when I saw him, he was transferred to medical floor. Patient was continued on oxygen supplementation and DuoNeb as per orders. Oxygen was slowly tapered off. He is maintaining his oxygenation on room air . There was also incidental finding of lung mass. Metabolic was done by pulmonary and was found to have a stage III squamous cell carcinoma For which he will follow with the pulmonary and oncology as an outpatient for further workup and management. During his inpatient stay, he also developed urinary retention, multiple times and said the Newberry was placed in and will be discharged on Newberry catheter until he follows up with [facility] as an outpatient and then can be taken off if he is able to wide without indwelling catheter. , His A. flutter has resolved and the cardiology recommended to take him off Xarelto and continue beta blockers to control his heart rate. Further follow-up with cardiology clinic at the [facility] UTI was treated with IV antibiotics followed by by mouth Levaquin and also podiatry consult was called for weight loss secondary to his malignancy. Girlfriend has agreed to take him home and he will follow-up with pulmonary oncology [facility] for his further care.. DISCHARGE MEDICATIONS: Please see below. ALLERGIES: Please see below. PHYSICAL EXAMINATION ON DISCHARGE: VITAL SIGNS: Please see below. GENERAL: Within normal limit HEENT: PERRLA. Extraocular muscles intact NECK: Supple, no JVD, no leuk lymphadenopathy CARDIOVASCULAR EXAMINATION: S1, S2, regular RESPIRATORY EXAMINATION: Clear to A&P ABDOMINAL EXAMINATION: Benign EXTREMITIES: No clubbing, cyanosis, edema SKIN: Normal NEUROLOGICAL EXAMINATION: Focal motor sensory deficit PSYCHIATRIC EXAMINATION: . No more anxiety LABORATORY DATA: Please see below. IMAGING: Chest x-ray:COMPARISON: Multiple, the latest prior is 07/24/2019. Large left upper lobe opacity status quo. Evidence of fibrotic change status quo. No definite acute patchy parenchymal opacities or pleural effusions have developed. There is no significant change in the appearance of the osseous structures. IMPRESSION: Stable chest with findings as described above. PROGNOSIS: Unknown ACTIVITY: As tolerated. DIET: As tolerated DISCHARGE PLAN: Follow-up with oncology and pulmonary in one week as an outpatient DISPOSITION: . Home with girlfriend DISCHARGE INSTRUCTIONS: 1. As per discharge instructions. ITEMS TO FOLLOWUP ON ON OUTPATIENT: 1. Follow with pulmonary and oncology as an outpatient for further workup. DISCHARGE CONDITION: Stable. TIME SPENT ON DISCHARGE: 45 minutes. Vital Signs/I&Os Vital Signs Date Time Temp Pulse Resp B/P (MAP) Pulse Ox O2 Delivery O2 Flow Rate FiO2 08/01/19 13:52 22 08/01/19 09:24 69 129/83 08/01/19 08:00 1.0 08/01/19 08:00 98.4 93 07/29/19 06:00 Nasal Cannula I&O- Last 24 Hours up to 6 AM 08/01/19 06:00 Intake Total 1300 ml Output Total 350 ml Balance 950 ml Laboratory Data Labs 24H Laboratory Tests 2 08/01/19 07:24: Immature Granulocyte % (Auto) 0.5, White Blood Count 13.5H, Red Blood Count 3.85L, Hemoglobin 10.5L, Hematocrit 34.5L, Mean Corpuscular Volume 89.6, Mean Corpuscular Hemoglobin 27.3, Mean Corpuscular Hemoglobin Concent 30.4L, Red Cell Distribution Width 19.9H, Platelet Count 225, Neutrophils (%) (Auto) 77.8H, Lymphocytes (%) (Auto) 7.1L, Monocytes (%) (Auto) 13.5H, Eosinophils (%) (Auto) 1.0, Basophils (%) (Auto) 0.1, Neutrophils # (Auto) 10.5H, Lymphocytes # (Auto) 1.0L, Monocytes # (Auto) 1.8H, Eosinophils # (Auto) 0.1, Basophils # (Auto) 0.0, Nucleated Red Blood Cells % (auto) 0.0, Anion Gap 6L, Glomerular Filtration Rate > 60.0, Blood Urea Nitrogen 19H, Creatinine 0.98, Sodium Level 136, Potassium Level 3.6, Chloride Level 98, Carbon Dioxide Level 32, Calcium Level 9.0, Aspartate Amino Transf (AST/SGOT) 13, Alanine Aminotransferase (ALT/SGPT) 11L, Alkaline Phosphatase 68, Total Bilirubin 0.5, Total Protein 5.9L, Albumin 2.2L, Albumin/Globulin Ratio 0.59L CBC/BMP Laboratory Tests 08/01/19 07:24 Red Blood Count 3.85 L, Mean Corpuscular Volume 89.6, Mean Corpuscular Hemoglobin 27.3, Mean Corpuscular Hemoglobin Concent 30.4 L, Red Cell Distribution Width 19.9 H, Neutrophils (%) (Auto) 77.8 H, Lymphocytes (%) (Auto) 7.1 L, Monocytes (%) (Auto) 13.5 H, Eosinophils (%) (Auto) 1.0, Basophils (%) (Auto) 0.1, Neutrophils # (Auto) 10.5 H, Lymphocytes # (Auto) 1.0 L, Monocytes # (Auto) 1.8 H, Eosinophils # (Auto) 0.1, Basophils # (Auto) 0.0, Calcium Level 9.0, Aspartate Amino Transf (AST/SGOT) 13, Alanine Aminotransferase (ALT/SGPT) 11 L, Alkaline Phosphatase 68, Total Bilirubin 0.5, Total Protein 5.9 L, Albumin 2.2 L Microbiology Microbiology 07/26/19 Blood Culture - Final, Complete NO GROWTH AFTER 5 DAYS 07/26/19 Blood Culture - Final, Complete NO GROWTH AFTER 5 DAYS 07/25/19 Urine Culture - Final, Complete Enterococcus Faecalis Discharge Medications Scheduled Amlodipine Besylate (Amlodipine Besylate) 10 Mg Tablet, 10 MG PO DAILY Aspirin (Aspirin EC) 81 Mg Tab, 81 MG PO QAM, (Reported) Atorvastatin Calcium (Atorvastatin Calcium) 80 Mg Tablet, 80 MG PO QHS, (Reported) Buspirone HCl (Buspirone HCl) 10 Mg Tablet, 10 MG PO BID Cholecalciferol (Vitamin D3) (Vitamin D-400) 400 Unit Tablet, 800 UNIT PO DAILY, (Reported) Finasteride (Finasteride) 5 Mg Tablet, 5 MG PO QHS Folic Acid (Folic Acid) 1 Mg Tab, 2 MG PO DAILY, (Reported) Magnesium Chloride (Mag64) 64 Mg Tablet.dr, 64 MG PO DAILY Metoprolol Tartrate (Metoprolol Tartrate) 50 Mg Tab, 50 MG PO BID, (Reported) Paroxetine (Paroxetine HCl) 10 Mg Tablet, 10 MG PO QHS Tamsulosin HCl (Flomax) 0.4 Mg Capsule, 0.8 MG PO DAILY Thiamine HCl (Thiamine HCl) 100 Mg Tab, 100 MG PO DAILY, (Reported) Scheduled PRN Acetaminophen (Acetaminophen) 500 Mg Tab, 500 MG PO Q6H PRN for PAIN SCALE 1-5, (Reported) Albuterol Sulfate (Ventolin Hfa) 18 Gm Hfa.aer.ad, 2 PUFF INH Q4H PRN for wheezing, (Reported) Hydrocodone/Acetaminophen (Hydrocodone-Acetamin 7.5-325) 1 Each Tablet, 1 TAB PO 5XD PRN for PAIN, (Reported) PT HAS A SCRIPT FOR 10-325 Q6H THAT THEY HAVE NOT STARTED Allergies Coded Allergies: oxycodone (Verified Allergy, Unknown, 07/20/19) LOURDES LOUIS MD Aug 01, 2019 14:06
[2019-08-06] MEDS ORDERED: PROC10TA4 PO (14:36)
[2019-08-06] MEDS ORDERED: ONDA8TAB7 PO (14:36)
== END 2019-08-01 15:40 | disposition home health service (06) | DRG 166 ==
LOC: M ED 11:54 → M ED INP 16:42 → M PCU 21:50
PROVIDERS: ADMIT Internal Medicine; ATTEND Internal Medicine
PROC: 0BBG8ZX Excision of Left Upper Lung Lobe, Via Natural or Artificial Opening Endoscopic, Diagnostic (ICD-10-PCS; principal; 2019-07-24 13:15)
DX: C34.12 Malignant neoplasm of upper lobe, left bronchus or lung (principal); J96.01 Acute respiratory failure with hypoxia; J44.1 Chronic obstructive pulmonary disease with (acute) exacerbation; I24.8 Other forms of acute ischemic heart disease; K56.7 Ileus, unspecified; B37.0 Candidal stomatitis; I47.2 Ventricular tachycardia; E46 Unspecified protein-calorie malnutrition; K59.00 Constipation, unspecified; I45.10 Unspecified right bundle-branch block; I49.1 Atrial premature depolarization; F41.9 Anxiety disorder, unspecified; I16.0 Hypertensive urgency; I10 Essential (primary) hypertension; R33.9 Retention of urine, unspecified; I50.812 Chronic right heart failure; N18.9 Chronic kidney disease, unspecified; F17.200 Nicotine dependence, unspecified, uncomplicated; K70.9 Alcoholic liver disease, unspecified; Z89.511 Acquired absence of right leg below knee; R91.8 Other nonspecific abnormal finding of lung field; Z85.810 Personal history of malignant neoplasm of tongue; Z79.82 Long term (current) use of aspirin; Z79.899 Other long term (current) drug therapy; Z88.5 Allergy status to narcotic agent

== ENCOUNTER → 2019-08-08 | Outpatient (CLI) | payer OTHER ==
[~2019-08-08] MED LIST changes: +AMLO5TAB6 PO; +ATOR80TA59 PO; +BUSP10TA PO; +D-40TAB2 PO; +FINA5TAB2 PO; +FLOM0.4C39 PO; +HYDR-4514 PO; +HYDR-4517 PO; +MAGN64TASA PO; +ONDA8TAB7 PO; +PARO5TAB PO; +PROBCAP14 PO; +PROC10TA4 PO; +VENTAER INH
--- NOTE | 2019-08-11 08:28 | RADONC ---
RADIATION ONCOLOGY CONSULTATION NOTE DATE: 08/08/2019 CHART NUMBER: [id number] DIAGNOSIS: Left upper lobe lung cancer. STAGE: IIIB, T4N2M0, staging in progress. ECOG PERFORMANCE STATUS: 3 CONSULTATION NOTE: Mr. Gao is a 73-year-old white male with multiple medical illnesses who is presenting to us today for what appears to be, although is not fully staged, a stage IIIB, T4N2M0 squamous cell carcinoma of the left upper lobe for discussion of external beam radiation therapy as part of a combined modality of approach to treatment. HISTORY OF PRESENT ILLNESS: The patient has a very long history of emphysema and multiple other medical problems. He has smoked one and a half packs of cigarettes per day for over 60 years for a 90 pack-year smoking history. Indeed, he started smoking in 1957. He does not abuse alcohol. In addition, the patient has a history of COPD, hypertension, depression, anxiety and a [id number] amputation. He also has diabetes. He is not using supplemental oxygen at this time. The patient had increasing shortness of breath and a cough and was hospitalized in mid June. Workup included an angio CT scan on 07/20/2019 which revealed a 7.6 cm x 7.77 cm left upper lobe mass which extended into the superior and posterior mediastinum. There was abutment with adjacent vertebral bodies of the thoracic spine and there was encasement of the proximal left subclavian artery. There was noted to be some mediastinal lymphadenopathy as well. A CT of the abdomen and pelvis was undertaken and showed no evidence of metastatic disease. A CT of the head was done on 07/27/2019 and showed no evidence of brain metastasis. The patient is now being referred to me for consideration of external beam radiation therapy as a therapeutic option. PAST MEDICAL HISTORY: The patient's past medical history is noted above. In addition, the patient has chronic kidney disease and alcoholic liver disease. He has hypercholesterolemia and has had a left fem-pop bypass. ALLERGIES: The patient has no known drug allergies. SOCIAL HISTORY: As noted above, the patient has a 90 pack year smoking history. He has history of alcoholism and is not drinking alcohol now, but he does have alcoholic liver disease. REVIEW OF SYSTEMS: The patient has physical limitations and a [id number] amputation. He has difficulty swallowing as well as anxiety and depression. He has anorexia and weight loss as well as visual disturbances and chest pain. He reports weakness in his arms and legs and decreased energy. He has hearing loss and noted shortness of shortness of breath, although at this time he does not have nasal oxygen. He denies nausea, vomiting, fevers, chills, night sweats, headaches, urinary problems. PHYSICAL EXAMINATION: The patient is a chronically ill appearing white male in no acute distress, although he does say it hurts when he breathes. His weight is 127 pounds. His pulse is 63, respirations 20, blood pressure 93/48, and O2 saturation 93. HEENT: Exam is normocephalic, atraumatic. Extraocular movements are intact. There is no palpable cervical, supraclavicular, infraclavicular or axillary lymphadenopathy present. His lungs have decreased breath sounds over the left upper lung. There are distant breath sounds at bases as well. His heart has a regular rate and rhythm. His abdomen reveals no masses or tenderness. Skeletal examination reveals a [id number] amputation on the right. The left leg shows no edema. He is in a wheelchair. ASSESSMENT: At this time, I cannot say whether or not this patient would be a candidate for external beam radiation therapy because full workup has not been undertaken. I have reviewed the CT scan and the area of involvement is in the extreme upper left lung. We may be able to treat this without too much collateral damage to normal lung tissue, although at this time I do not have enough information. First, we await the PET CT scan. I am not sure if his medical oncologist, Dr. Bojorquez, has ordered one, but I have ordered one just in case. This will let us know whether or not we are dealing with widely metastatic disease at this time. It will also help us define any radiation walker if they can be. In addition, I have ordered pulmonary function tests to be undertaken. This patient has a 90 pack year smoking history with a long history of COPD and I am concerned with regards to his overall lung capacity. Since he is not walking or exerting himself, but he is still short of breath, I suspect his pulmonary functions are poor. We are also obtaining a differential lung scan for comparison with our dose volume histogram. As mentioned above, we are obtaining a dose volume histogram to further evaluate which portions of the lung will no longer be available for his use following completion of therapy. We will then be able to decide whether or not he can tolerate such treatments. Once again, as noted above, I have scheduled the patient for a PET CT scan for further staging as well as pulmonary function tests and a dose volume histogram. We are scheduling the patient for CT simulation following his pulmonary function tests to generate a dose volume histogram to compare with his differential lung scan to see whether or not he could tolerate treatments at all. Considering this patient's severe list of diseases, I do think his outlook is rather grim. I did discuss with him in detail, however the potential benefits as well as possible acute and chronic sequelae of external beam radiation therapy. We did discuss the logistics of treatment planning, simulation and subsequent fractionated daily radiation treatments should he be able to undergo therapy. cc: Loretta Bojorquez MD
== END ==
LOC: M ONCR 09:11
PROVIDERS: ATTEND Radiology Radiation Oncology
DX: C34.11 Malignant neoplasm of upper lobe, right bronchus or lung (principal); J44.9 Chronic obstructive pulmonary disease, unspecified; H53.9 Unspecified visual disturbance; R07.9 Chest pain, unspecified; R53.81 Other malaise; R53.1 Weakness; K70.9 Alcoholic liver disease, unspecified; I10 Essential (primary) hypertension; E11.9 Type 2 diabetes mellitus without complications; F10.21 Alcohol dependence, in remission; F32.9 Major depressive disorder, single episode, unspecified; F41.9 Anxiety disorder, unspecified; Z89.519 Acquired absence of unspecified leg below knee

== ENCOUNTER 2019-08-15 19:17 | Inpatient (IN) | payer OTHER ==
[~2019-08-15] VITALS: Ht 172.7 cm; Wt 48.5 kg
[2019-08-15 20:24] LABS: BASO # 0.1 10^3/uL (0.0-0.2); BASO % 0.3 % (0.0-1.0); HEMATOCRIT 43.1 % (42.0-52.0); HEMOGLOBIN 13.3 g/dl (13.5-17.5); LYMPH # 1.2 10^3/uL (1.5-5.0); LYMPH % 4.7 % (24.0-44.0); MEAN CORPUSCULAR HEMOGLOBIN 28.7 pg (27.0-33.0); MEAN CORPUSCULAR HGB CONC 30.9 g/dl (32.0-36.5); MEAN CORPUSCULAR VOLUME 92.9 fl (80.0-96.0); MONO # 1.8 10^3/uL (0.0-0.8); MONO % 6.8 % (0.0-5.0); NEUTROPHILS # 22.7 10^3/uL (1.5-8.5); NEUTROPHILS % 87.1 % (36.0-66.0); PLATELET COUNT, AUTOMATED 366 10^3/uL (150-450); RED BLOOD COUNT 4.64 10^6/uL (4.30-6.10); WHITE BLOOD COUNT 26.1 10^3/uL (4.0-10.0)
--- NOTE | 2019-08-15 20:25 | ECGEPIP ---
[facility] - ED Test Date: 2019-08-15 Pat Name: KEELY STALLINGS Department: Room: - Gender: Male Polish Compounder: KCJ : 1945 Requested By: FORTUNATO Lozano Order Number: [id number] Reading MD: Torri Qiu Measurements Intervals [place] Rate: 83 P: 81 WI: 164 QRS: 217 QRSD: 173 T: 14 QT: 431 QTc: 509 Interpretive Statements SINUS RHYTHM MARKED RIGHT AXIS DEVIATION RIGHT BUNDLE BRANCH BLOCK AND POSSIBLE RIGHT VENTRICULAR HYPERTROPHY POSSIBLE Left atrial enlargement CW 07/28/19 RATE DECREASED Electronically Signed on 08-15-2019 20:25:09 EDT by Torri Qiu
[2019-08-15 21:01] LABS: ALBUMIN 2.4 GM/DL (3.2-5.2); BILIRUBIN,DIRECT 0.2 MG/DL (0.0-0.2); BILIRUBIN,TOTAL 0.6 MG/DL (0.2-1.0); CALCIUM LEVEL 9.7 MG/DL (8.8-10.2); CK-MB VALUE MASS 1.7 NG/ML (<3.6); CREATININE FOR GFR 1.54 MG/DL (0.70-1.30); GLOMERULAR FILTRATION RATE 47.1 (>42); MB/CK RELATIVE INDEX 5.86 (< OR =4); THYROID STIMULATING HORMONE 0.655 uIU/ML (0.358-3.740); TOTAL PROTEIN 6.6 GM/DL (6.4-8.2); TROPONIN I 0.12 NG/ML (< 0.10)
--- NOTE | 2019-08-15 21:25 | REPVR ---
PROCEDURE INFORMATION: Exam: CT Head Without Contrast Exam date and time: 08/15/2019 8:59 PM Clinical history: 73 years old, male; Altered mental status/memory loss; Confusion or disorientation; Additional info: AMS TECHNIQUE: Imaging protocol: Computed tomography of the head without contrast. Radiation optimization: All CT scans at this facility use at least one of these dose optimization techniques: automated exposure control; mA and/or kV adjustment per patient size (includes targeted exams where dose is matched to clinical indication); or iterative reconstruction. COMPARISON: CT Head W/O FOLL BY WITH CONTR 07/27/2019 10:20 AM FINDINGS: Brain: Minimal decreased attenuation of the supratentorial white matter is likely secondary to chronic microvascular ischemia. No acute intracranial hemorrhage. 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 Ventricles: Ventricular and subarachnoid spaces are age appropriate. Bones/joints: Unremarkable. No acute fracture. Sinuses: Visualized sinuses are unremarkable. No fluid levels. Mastoid air cells: Visualized mastoid air cells are well aerated. Soft tissues: Unremarkable. Vasculature: Intracranial vascular calcification. IMPRESSION: 1. Small possibly subacute left occipital lobe infarct. MRI may be considered. 2. No acute intracranial hemorrhage. Electronically signed by: Neal Breen On 08/15/2019 21:25:03 PM
[2019-08-15] MEDS ORDERED: NS 500 ML IV ONE (23:00)
[2019-08-15] MEDS ORDERED: BUSP10TA PO (23:40)
[2019-08-15] MEDS ORDERED: AMLO10TA5 PO (23:40)
[2019-08-15] MEDS ORDERED: PARO5TAB PO (23:40)
[2019-08-15] MEDS ORDERED: FLOM0.4C39 PO (23:40)
[2019-08-15] MEDS ORDERED: ONDA8TAB7 PO (23:45)
[2019-08-15] MEDS ORDERED: PROC10TA4 PO (23:45)
[2019-08-16 01:25] VITALS: BP 122/48
[2019-08-16] MEDS ORDERED: PROCHLORPERAZINE 5 MG TAB (S0183) PO PRN (03:30)
[2019-08-16] MEDS ORDERED: ALBUTEROL 90 MCG/ACT 8GM HFA INHALER INH PRN (03:30)
[2019-08-16] MEDS ORDERED: HYDROcodone/APAP LIQUID 7.5-325MG 15ML UDC (LORTAB ELIXIR) PO PRN (03:30)
[2019-08-16] MEDS ORDERED: cefTRIAXone SOD 2 GM VIAL (J0696) IM SCH (03:45)
[2019-08-16] MEDS ORDERED: ANEXSIA, NORCO 7.5MG/325MG TABLET(HYDROCODONE/APAP) PO PRN (04:00)
[2019-08-16] MEDS: HEPARIN SOD (PORCINE) 5000 UNITS/ML VIAL SC SCH ×3 (05:29→21:59)
[2019-08-16] MEDS: cefTRIAXone SOD 2 GM in D5W MINI-BAG PLUS 50 ML IV SCH (05:30)
[2019-08-16] MEDS: NS 1,000 ML IV SCH ×2 (05:30→21:58)
[2019-08-16 06:51] VITALS: BP 115/59
[2019-08-16 06:52] LABS: HEMATOCRIT 38.9 % (42.0-52.0); HEMOGLOBIN 11.8 g/dl (13.5-17.5); MEAN CORPUSCULAR HEMOGLOBIN 27.6 pg (27.0-33.0); MEAN CORPUSCULAR HGB CONC 30.3 g/dl (32.0-36.5); MEAN CORPUSCULAR VOLUME 91.1 fl (80.0-96.0); PLATELET COUNT, AUTOMATED 324 10^3/uL (150-450); RED BLOOD COUNT 4.27 10^6/uL (4.30-6.10); WHITE BLOOD COUNT 21.2 10^3/uL (4.0-10.0)
[2019-08-16 07:23] LABS: ALBUMIN 2.2 GM/DL (3.2-5.2); ALT/SGPT 11 U/L (12-78); BILIRUBIN,TOTAL 0.5 MG/DL (0.2-1.0); BLOOD UREA NITROGEN 31 MG/DL (7-18); CALCIUM LEVEL 9.5 MG/DL (8.8-10.2); CARBON DIOXIDE LEVEL 27 MEQ/L (21-32); CHLORIDE LEVEL 101 MEQ/L (98-107); CREATININE FOR GFR 1.19 MG/DL (0.70-1.30); GLOMERULAR FILTRATION RATE > 60.0 (>42); GLUCOSE, FASTING 102 MG/DL (70-100); POTASSIUM SERUM 3.5 MEQ/L (3.5-5.1); SODIUM LEVEL 139 MEQ/L (136-145); TOTAL PROTEIN 6.8 GM/DL (6.4-8.2)
--- NOTE | 2019-08-16 08:20 | HPEPDOC ---
General Date of Admission Aug 15, 2019 at 23:35 Date of Service: Aug 15, 2019 Primary Care Physician: A Attending Physician: LUKE CORTES MD Chief Complaint The patient is a 73-year-old male admitted with a reason for visit of Altered Mental Status. Source: Patient Exam Limitations: Clinical conditions, Physical impairment, Garbled speech Timing/Duration: Day(s) Severity: Moderate Associated Symptoms: Other (confusion) History of Present Illness 73 yo man with an extensive smoking history, copd, hypertension, recent diagnosi s of lung with recent carbo/taxol on XRT who presented to the ed with AMS from his assisted living reporting some mild dysuria c/f a UTI. He arrived hemodynamically stable with labs notable for WBC 26.1, Cr 1.19, CT head without acute pathology and a positive UA suggestive of a UTI. He was subsequently admitted for management of a UTI. Home Medications Scheduled Amlodipine Besylate (Amlodipine Besylate) 10 Mg Tablet, 10 MG PO DAILY, (Reporte d) Aspirin (Aspirin EC) 81 Mg Tab, 81 MG PO DAILY, (Reported) Atorvastatin Calcium (Atorvastatin Calcium) 80 Mg Tablet, 80 MG PO QHS, (R eported) Buspirone HCl (Buspirone HCl) 10 Mg Tablet, 10 MG PO BID, (Reported) Cholecalciferol (Vitamin D3) (Vitamin D-400) 400 Unit Tablet, 800 UNIT PO DAILY, (Reported) Finasteride (Finasteride) 5 Mg Tablet, 5 MG PO QHS, (Reported) Folic Acid (Folic Acid) 1 Mg Tab, 2 MG PO DAILY, (Reported) Metoprolol Tartrate (Metoprolol Tartrate) 50 Mg Tab, 50 MG PO BID, (Reported) Paroxetine (Paroxetine HCl) 10 Mg Tablet, 10 MG PO QHS, (Reported) Tamsulosin HCl (Flomax) 0.4 Mg Capsule, 0.4 MG PO DAILY, (Reported) Thiamine HCl (Thiamine HCl) 100 Mg Tab, 100 MG PO DAILY, (Reported) Scheduled PRN Acetaminophen (Acetaminophen) 500 Mg Tab, 500 MG PO Q6H PRN for PAIN, (Reported) Albuterol Sulfate (Ventolin Hfa) 18 Gm Hfa.aer.ad, 2 PUFF INH Q4H PRN for wheezing, (Reported) Hydrocodone/Acetaminophen (Hydrocodone-Acetamin 10-325 mg) 1 Each Tablet, 1 TAB PO QIDP PRN for pain, (Reported) Ondansetron HCl (Ondansetron HCl) 8 Mg Tablet, 8 MG PO Q6H PRN for NAUSEA OR VOMITING, (Reported) Prochlorperazine Maleate (Prochlorperazine Maleate) 10 Mg Tablet, 10 MG PO Q6H PRN for NAUSEA OR VOMITING, (Reported) Allergies Coded Allergies: oxycodone (Verified Allergy, Unknown, 08/15/19) Past Medical History Medical History 1. copd 2. htp 3. 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 ckd 5. alcoholic liver disease 6. heart murmur 7. Lung cancer Surgical History 1. right bka 2. right inguinal hernia repair 3. Head and neck cancer resection Family History Extensive cardiac history among all family members including parents Social History * Smoker: current smoker Alcohol: rarely Drugs: denies Recent Travel/Sick Contacts: Denies: Recent travel, Recent sick contacts current smoker - used to smoke a lot more, but now only smokes 1-1 1/2 ppd for 63yrs stopped drinking etoh for a few years now denied drug use lives with his girlfriend retired A-FIB/CHADSVASC A-FIB History Current/History of A-Fib/PAF?: No Current PO Anticoag Therapy: No Age/Risk Factor Scoring CHADSVASC: CHADSVASC Response (Comments) Value Age Risk Factor Age >/= 75 years old 2 Gender Risk Factor Male 0 Hx of CHF No 0 Hx of HTN No 0 Hx of Stroke/TIA/or VTE No 0 Hx of Diabetes No 0 Hx of Vascular Disease No 0 Total 2 Treatment Treatment ordered: NONE Reason Anticoagulant not given: Not indicated/[id number] Review of Systems Constitutional: Denies: Chills, Fever, Night Sweats Eyes: Denies: Pain, Vision change ENT: Denies: Head Aches, Ear Pain, Dysphagia Skin: Denies: Rash, Lesions, Jaundice, Bruising, Itching, Dry, Breakdown, Nail Changes, Other Pulmonary: Denies: Dyspnea, Cough Cardiovascular: Denies: Chest Pain, Palpitations, Orthopnea, Paroxysmal Noc. Dyspnea, Lt Headedness Gastrointestinal: Denies: Nausea, Vomiting, Abdominal Pain, Diarrhea, Constipation, Melena, Hematochezia, Other Symptoms Genitourinary: Reports: Dysuria, Frequency, Incontinence; Denies: Retention Hematologic: Denies: Bruising, Bleeding Excessively Endocrine: Denies: Polydipsia, Polyphagia, Polyuria, Heat Intolerance, Cold Intolerance, Other Endocrine Sx Musculoskeletal: Denies: Neck Pain, Back Pain, Joint Pain, Muscle Pain, Spasms Neurological: Denies: Weakness, Change in speech, Confusion Psych: Reports: Mood Normal; Denies: Depression, Memory Issues Physical Examination General Exam: Positive: Alert, No Acute Distress Eye Exam: Positive: PERRLA, Conjunctiva & lids normal (dry lips with cracking), EOMI; Negative: Sclera icteric ENT Exam: Positive: Atraumatic, Mucous membr. moist/pink, Pharynx Normal Neck Exam: Positive: Supple; Negative: JVD, thyromegaly Chest Exam: Positive: Clear to auscultation, Normal air movement Heart Exam: Positive: Rate Normal, Regular Rhythm, Normal S1, Normal S2; Negative: Murmurs, Rubs Abdomen Exam: Positive: Normal bowel sounds, Soft; Negative: Tenderness, Hepatospenomegaly Extremity Exam: Positive: Normal pulses, Other (L with BKA and R with 3+ edema with PENG stocking on ); Negative: Clubbing, Cyanosis, Edema Skin Exam: Positive: Other skin issue (dry) Neuro Exam: Positive: Normal Speech, Strength at 5/5 X4 ext, Normal Tone, Cranial Nerves 3-12 NL Psych Exam: Positive: Mental status NL, Oriented x 3 Vital Signs Vital Signs Date Time Temp Pulse Resp B/P (MAP) Pulse Ox O2 Delivery O2 Flow Rate FiO2 08/16/19 01:25 98.6 87 16 122/48 (72) 97 Nasal Cannula 4.0 Laboratory Data Labs 24H Laboratory Tests 2 08/15/19 20:16: Immature Granulocyte % (Auto) 1.1, Neutrophils (%) (Auto) 87.1H, Lymphocytes (%) (Auto) 4.7L, Monocytes (%) (Auto) 6.8H, Eosinophils (%) (Auto) 0.0, Basophils (%) (Auto) 0.3, Neutrophils # (Auto) 22.7H, Lymphocytes # (Auto) 1.2L, Monocytes # (Auto) 1.8H, Eosinophils # (Auto) 0.0, Basophils # (Auto) 0.1, Nucleated Red Blood Cells % (auto) 0.0, Anion Gap 14, Glomerular Filtration Rate 47.1, Lactic Acid Level 3.0*H, Calcium Level 9.7, Total Bilirubin 0.6, Direct Bilirubin 0.2, Aspartate Amino Transf (AST/SGOT) 11, Alanine Aminotransferase (ALT/SGPT) 11L, Alkaline Phosphatase 104, Ammonia < 10, Total Creatine Kinase 29L, Creatine Kinase MB 1.7, Creatine Kinase MB Relative Index 5.86H, Troponin I 0.12H, Total Protein 6.6, Albumin 2.4L, Albumin/Globulin Ratio 0.57L, Thyroid Stimulating Hormone (TSH) 0.655 08/15/19 23:22: Urine Color YELLOW, Urine Appearance CLOUDYH, Urine pH 5.0, Urine Specific [place] 1.016, Urine Protein NEGATIVE, Urine Glucose (UA) NEGATIVE, Urine Ketones TRACEH, Urine Blood 2+H, Urine Nitrite NEGATIVE, Urine Bilirubin NEGATIVE, Urine Urobilinogen 0.2, Urine Leukocyte Esterase 3+H, Urine WBC (Auto) TNTCH, Urine RBC (Auto) 57H, Urine Hyaline Casts (Auto) 9, Urine Bacteria (Auto) 3+H, Urine Squamous Epithelial Cells 1, Urine Sperm (Auto) 08/16/19 00:55: Lactic Acid Followup at 4 Hours 1.0 08/16/19 06:35: Nucleated Red Blood Cells % (auto) 0.0, Anion Gap 11, Glomerular Filtration Rate > 60.0, Lactic Acid Level 1.1, Calcium Level 9.5, Total Bilirubin 0.5, Aspartate Amino Transf (AST/SGOT) 10, Alanine Aminotransferase (ALT/SGPT) 11L, Alkaline Phosphatase 102, Total Protein 6.8, Albumin 2.2L, Albumin/Globulin Ratio 0.48L CBC/BMP Laboratory Tests 08/15/19 20:16 08/16/19 06:35 Microbiology Microbiology 08/15/19 Urine Culture, Received Pending Assessment/Plan 73 yo man with rcently diagnosed lung cancer who presented to the ED with ongoing AMS and found be borderline hypotensive with a UTI. UTI: -follow up urine culture -continue empiric ceftriaxone -fuids at 125cc/hr for 1L, s/p 500cc in the ED HTN -Amlodipine 10 -Metop 50 BID CAD: -ASA -lipitor Psych: -buspar -paxil Vit D -folate DVT ppx: heparin Diet: Advance as tolerated Plan / VTE VTE Prophylaxis Ordered?: Yes LUKE CORTES MD Aug 16, 2019 08:20
[2019-08-16 08:39] LABS: TROPONIN I 0.08 NG/ML (< 0.10)
--- NOTE | 2019-08-16 08:46 | REP ---
Chest x-ray: Portable sitting AP view. History: Altered mental status. Comparison study: August 15, 2019. Findings: There is a large mass in the left apex and mediastinal widening suggesting adenopathy unchanged. There is an infiltrate again noted in the right base consistent with pneumonia. This is unchanged from yesterday's radiograph. Heart is not enlarged. Impression: Large mass in the left apex with mediastinal adenopathy. Infiltrate right base. Electronically Signed by Carlos Duffy MD 08/16/2019 08:38 A
[2019-08-16] MEDS: FOLIC ACID 1 MG TAB PO SCH (09:31)
[2019-08-16] MEDS: TAMSULOSIN 0.4 MG CAP PO SCH (09:32)
[2019-08-16] MEDS: THIAMINE 100 MG TAB PO SCH (09:32)
[2019-08-16] MEDS: METOPROLOL TART 50 MG TAB PO SCH ×2 (09:32→23:10)
[2019-08-16] MEDS: ASPIRIN 81 MG ENTERIC TAB PO SCH (09:32)
[2019-08-16] MEDS: busPIRone 10 MG TAB PO SCH ×2 (09:32→21:58)
[2019-08-16] MEDS: VITAMIN D (CHOLECALCIFEROL) 400 INTERNATIONAL UNITS TAB PO SCH (09:32)
[2019-08-16] MEDS: amLODIPine 10 MG TAB PO SCH (09:33)
[2019-08-16] MEDS: ACETAMINOPHEN TAB 650MG DOSE (2X325MG) PO PRN ×2 (12:01→14:01)
[2019-08-16 14:50] VITALS: BP 94/39
[2019-08-16] MEDS ORDERED: ACETAMINOPHEN TAB 650MG DOSE (2X325MG) PO ONE (17:15)
--- NOTE | 2019-08-16 17:39 | IPNPDOC ---
Date Seen The patient was seen on 08/16/19. Progress Note SUBJECTIVE: Patient was interviewed and examined in his hospital room this morning. Patient reports persistent paranoid delusions of persecution. He also continues to have visual hallucinations of people and things that are not present in the room. Patient is aware that these hallucinations are not necessarily reality. Patient is a fair historian, difficult to understand given his conversational dyspnea. Denies any chest pain or discomfort at this time. Patient is alert and oriented to person and place daily has difficulty recalling the date and year. Patient does not appear to be in any acute distress while at rest. OBJECTIVE: PHYSICAL EXAMINATION: VITAL SIGNS: Please see below. GENERAL: Patient interviewed and examined in his hospital room this morning. Patient was found to be sitting upright in bed, alert and oriented to person and place. Did not appear to be in any acute distress, though conversational dyspnea was evident. Disheveled, poor hygiene, bearded gentleman appearing older than stated age. Thin, frail, malnourished. HEENT: Normocephalic, atraumatic. Sclera nonicteric. EOMI. Very poor oral hygiene. Mucous membranes appear dry notable perioral cracking. No conjunctival injection CARDIOVASCULAR: Regular rate and rhythm, no murmurs appreciated. No JVD. RESPIRATORY: Poor air movement throughout, minimal rales noted in the right lower base. ABDOMINAL: Frail, soft, nontender, non-distended, no obvious organomegaly. SKIN: Patient does have a number of rather large sebaceous cysts, 3 in total, on his back. on his back. EXTREMITIES: Patient does have a right cioad-baa-bqtl amputation. Left leg demonstrates mild edema. Posterior tibial pulses 2+. No calf tenderness. No clubbing. NEUROLOGICAL: Patient is alert and oriented to person and place. He is unable to accurately identify the date or year though his family with the season. Patient is reporting visual hallucinations including colors and shapes on the wall. PSYCHOLOGICAL: Patient does describe significant paranoia. He is afraid that people into the hospital and attempt to harm him. Per reports of his family members, this is been an ongoing severe. LABORATORY DATA: Please see below IMAGING STUDIES: Chest x-ray (08/15/19): Large mass in the left apex with mediastinal adenopathy. Infiltrate in the right base. Head CT (08/15/19): Small possible subacute left occipital lobe infarct. MRI may be considered. No acute intracranial hemorrhage. MICROBIOLOGY: Please see below. ASSESSMENT AND PLAN: Patient is a 73-year-old man with a past medical history significant for recently diagnosed lung cancer, who presented to emergency department with his family with a chief complaint of altered mental status. At this time, patient's altered mental status could be considered multifactorial. Differential diagnosis includes UTI, CVA, brain metastasis and medication-induced encephalopathy. PROBLEMS: #Altered mental status UA performed in the emergency department does carry evidence for UTI. Is possible that this, alone, may be responsible for his altered mental status. Patient has begun empiric treatment with ceftriaxone while culture and sensitivities remain pending. Patient does have a significant leukocytosis. Blood cultures have been ordered in order to rule out systemic infection. Patient does have a history of altered mental status secondary to high doses of pain medication. When patient's medication doses were adjusted, patient's altered mental status did resolve. Altering medications including his Percocet and Compazine have been held at this time and patient's mental status to be monitored. Is also possible that patient is currently suffering with sequelae from a recent infarct. A Zsmvttk-Llmvvj-zidz syndrome may be responsible for his visual hallucinations. Patient does carry the diagnosis of malignancy and is therefore more susceptible to hypercoagulability and resulting thromboembolism. Head CT performed at the emergency department didn't demonstrate evidence of possible subacute occipital infarct, which may also be adding to patient's altered mental status and visual hallucinations. It is also possible, the patient may have metastatic disease in his brain which may be playing a contributing role. Will order MRI in order to assess possibility of stroke and metastasis. #Urinary tract infection UA performed in the emergency department does demonstrate 3+ LE, 3+ bacteria. Reflux culture currently pending. Leukocytosis on CBC. Patient currently being treated with empiric ceftriaxone. Antibiotic choice pending culture sensitivities. #Transient troponin elevation In the emergency department, patient's troponin was found to be mildly elevated at 0.12. Repeat evaluation this morning shows a decreased to 0.08. Suspect secondary to demand ischemia #Squamous cell carcinoma X-ray imaging does demonstrate a known mass in the left apex with mediastinal adenopathy. 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 Medical record indicates that the patient is currently seeing Dr. Abdalla with an intention for radiation therapy. Patient also follows with Dr. Bojorquez of medical oncology. Current plan is to start weekly carboplatin/Taxol, though patient has not begin therapy at this t [place] 3 year life expectancy per medical oncology of 15% #COPD Patient does carry a history of greater than [id number] of active smoking 2 mg every 6 hours NEVAEH and every 2 hours PRN Continue on supplementary oxygen via nasal cannula. Acapella treatments for secretion mobilization #Hypertension Patient has remained normotensive in the hospital. His home medications of amlodipine 10 mg metoprolol 50 twice a day have been continued. #Coronary artery disease Continue patient on his home aspirin regimen in addition to statin therapy #Anxiety/depression Continue patient's home medication of BuSpar and Paxil Consider one-to-one sitter should patient's paranoia increase or should it become more agitated. #Nicotine dependence Patient reports an extensive smoking history. He states that up until 4 years ago he was smoking proximally 4 packs per day. Since then, he has reduced his cigarette usage to approximately 1 pack per day. Consider nicotine patch placement once etiology patient's altered mental status has become more clear. #Below the knee amputation and chronic pain Patient's Percocet has been held secondary to altered mental status. Currently prescribed Tylenol as needed for pain or discomfort. In the event the patient requires a higher level of pain control, consider a very small dose of PRN Percocet once non-appropriate options have been exhausted. #Malnutrition Most likely related to patient's squamous cell carcinoma Continue to encourage calorie dense diet Ensure shakes as needed for supplementation #BPH/Urinary retention Continue home Flomax and finasteride DVT PROPHYLAXIS: Subcutaneous heparin DISPOSITION: Pending clinical improvement. PFS consult ordered as patient will likely require placement. VS, I&O, 24H, Fishbone Vital Signs/I&O Vital Signs Date Time Temp Pulse Resp B/P (MAP) Pulse Ox O2 Delivery O2 Flow Rate FiO2 08/16/19 09:32 100 117/60 08/16/19 06:51 99.9 16 98 Nasal Cannula 4.0 I&O- Last 24 Hours up to 6 AM 08/16/19 06:00 Intake Total 910 ml Output Total 125 ml Balance 785 ml Laboratory Data 24H LABS Laboratory Tests 2 08/15/19 20:16: Immature Granulocyte % (Auto) 1.1, Neutrophils (%) (Auto) 87.1H, Lymphocytes (%) (Auto) 4.7L, Monocytes (%) (Auto) 6.8H, Eosinophils (%) (Auto) 0.0, Basophils (%) (Auto) 0.3, Neutrophils # (Auto) 22.7H, Lymphocytes # (Auto) 1.2L, Monocytes # (Auto) 1.8H, Eosinophils # (Auto) 0.0, Basophils # (Auto) 0.1, Nucleated Red Blood Cells % (auto) 0.0, Anion Gap 14, Glomerular Filtration Rate 47.1, Lactic Acid Level 3.0*H, Calcium Level 9.7, Total Bilirubin 0.6, Direct Bilirubin 0.2, Aspartate Amino Transf (AST/SGOT) 11, Alanine Aminotransferase (ALT/SGPT) 11L, Alkaline Phosphatase 104, Ammonia < 10, Total Creatine Kinase 29L, Creatine Kinase MB 1.7, Creatine Kinase MB Relative Index 5.86H, Troponin I 0.12H, Total Protein 6.6, Albumin 2.4L, Albumin/Globulin Ratio 0.57L, Thyroid Stimulating Hormone (TSH) 0.655 08/15/19 23:22: Urine Color YELLOW, Urine Appearance CLOUDYH, Urine pH 5.0, Urine Specific [place] 1.016, Urine Protein NEGATIVE, Urine Glucose (UA) NEGATIVE, Urine Ketones TRACEH, Urine Blood 2+H, Urine Nitrite NEGATIVE, Urine Bilirubin NEGATIVE, Urine Urobilinogen 0.2, Urine Leukocyte Esterase 3+H, Urine WBC (Auto) TNTCH, Urine RBC (Auto) 57H, Urine Hyaline Casts (Auto) 9, Urine Bacteria (Auto) 3+H, Urine Squamous Epithelial Cells 1, Urine Sperm (Auto) 08/16/19 00:55: Lactic Acid Followup at 4 Hours 1.0 08/16/19 06:35: Nucleated Red Blood Cells % (auto) 0.0, Anion Gap 11, Glomerular Filtration Rate > 60.0, Lactic Acid Level 1.1, Calcium Level 9.5, Total Bilirubin 0.5, Aspartate Amino Transf (AST/SGOT) 10, Alanine Aminotransferase (ALT/SGPT) 11L, Alkaline Phosphatase 102, Troponin I 0.08#, Total Protein 6.8, Albumin 2.2L, Albumin/Globulin Ratio 0.48L CBC/BMP Laboratory Tests 08/15/19 20:16 10/19/19 06:35 Microbiology Microbiology 08/16/19 Blood Culture, Received Pending 08/16/19 Blood Culture, Received Pending 08/15/19 Urine Culture, Received Pending GME ATTESTATION GME ATTESTATION I saw and evaluated the patient. I agree with the findings and plan of care as documented in the above note JENNIFER PALOMARES DO Aug 16, 2019 17:39 EUGENIA TRUJILLO MD Aug 17, 2019 14:49
[2019-08-16] MEDS: IPRATROPIUM 0.5MG/ALBUTEROL 2.5MG INH SOL UD 3ML (DUONEB)(J7620) NEB SCH (20:58)
[2019-08-16] MEDS: PARoxetine 10MG TABLET PO SCH (21:58)
[2019-08-16] MEDS: ATORVASTATIN 20 MG TAB PO SCH (21:58)
[2019-08-16] MEDS: FINASTERIDE 5 MG TAB PO SCH (21:58)
[2019-08-16 22:00] VITALS: BP 117/57
[2019-08-16] MEDS ORDERED: NICOTINE 21MG/24HR 1 EA TRANSDERMAL TD ONE (23:00)
[2019-08-17] MEDS: IPRATROPIUM 0.5MG/ALBUTEROL 2.5MG INH SOL UD 3ML (DUONEB)(J7620) NEB SCH ×4 (02:34→20:37)
[2019-08-17] MEDS: cefTRIAXone SOD 2 GM in D5W MINI-BAG PLUS 50 ML IV SCH (05:13)
[2019-08-17] MEDS: HEPARIN SOD (PORCINE) 5000 UNITS/ML VIAL SC SCH ×3 (05:14→21:36)
[2019-08-17 06:00] VITALS: BP 110/54
[2019-08-17 07:53] LABS: HEMATOCRIT 37.3 % (42.0-52.0); HEMOGLOBIN 11.5 g/dl (13.5-17.5); MEAN CORPUSCULAR HEMOGLOBIN 28.5 pg (27.0-33.0); MEAN CORPUSCULAR HGB CONC 30.8 g/dl (32.0-36.5); MEAN CORPUSCULAR VOLUME 92.3 fl (80.0-96.0); PLATELET COUNT, AUTOMATED 316 10^3/uL (150-450); RED BLOOD COUNT 4.04 10^6/uL (4.30-6.10); WHITE BLOOD COUNT 21.9 10^3/uL (4.0-10.0)
[2019-08-17 08:20] LABS: BLOOD UREA NITROGEN 23 MG/DL (7-18); CARBON DIOXIDE LEVEL 30 MEQ/L (21-32); CHLORIDE LEVEL 107 MEQ/L (98-107); CHOLESTEROL LEVEL 206 MG/DL (<200); CHOLESTEROL RISK RATIO 5.282 (<5); CREATININE FOR GFR 0.87 MG/DL (0.70-1.30); GLOMERULAR FILTRATION RATE > 60.0 (>42); GLUCOSE, FASTING 122 MG/DL (70-100); HDL CHOLESTEROL 39 MG/DL (>40); LDL CHOLESTEROL 123 MG/DL (<100); NON-HDL-C 167 MG/DL; POTASSIUM SERUM 3.8 MEQ/L (3.5-5.1); SODIUM LEVEL 143 MEQ/L (136-145); TRIGLYCERIDES LEVEL 220 MG/DL (<150)
[2019-08-17] MEDS: ACETAMINOPHEN TAB 650MG DOSE (2X325MG) PO PRN ×3 (09:47→19:44)
[2019-08-17] MEDS: VITAMIN D (CHOLECALCIFEROL) 400 INTERNATIONAL UNITS TAB PO SCH (09:48)
[2019-08-17] MEDS: busPIRone 10 MG TAB PO SCH ×2 (09:48→21:36)
[2019-08-17] MEDS: NICOTINE 21MG/24HR 1 EA TRANSDERMAL TD SCH (09:48)
[2019-08-17] MEDS: amLODIPine 10 MG TAB PO SCH (09:48)
[2019-08-17] MEDS: FOLIC ACID 1 MG TAB PO SCH (09:48)
[2019-08-17] MEDS: TAMSULOSIN 0.4 MG CAP PO SCH (09:48)
[2019-08-17] MEDS: ASPIRIN 81 MG ENTERIC TAB PO SCH (09:48)
[2019-08-17] MEDS: THIAMINE 100 MG TAB PO SCH (09:48)
[2019-08-17] MEDS: METOPROLOL TART 50 MG TAB PO SCH ×2 (09:49→21:36)
--- NOTE | 2019-08-17 13:29 | IPNPDOC ---
Date Seen The patient was seen on 08/17/19. Progress Note SUBJECTIVE: Patient reports feeling better today. He tells me that he is not seeing monsters and does not believe people are trying to kill him and he is not seeing people trying to kill him around his room anymore. He tells me still sees things which he knows are not there but today it is much smaller like butterflies fluttering around the room. He tells me that he is not in any pain denies any fevers chills shortness of breath he denies any more difficulty with urination which he described previously. Expressive home before his presentation to hospital. OBJECTIVE: PHYSICAL EXAMINATION: VITAL SIGNS: Please see below. GENERAL: Grossly disheveled cachectic elderly man sitting up in bed he appears comfortable and not in any acute distress. He is oriented to person place and time almost surprisingly this morning HEENT: Very poor oral hygiene. Poor dentition CARDIOVASCULAR: Regular rate and rhythm, no murmurs appreciated. No JVD. RESPIRATORY: Poor air movement throughout, minimal rales noted in the right lower base. Prolonged expiratory phase ABDOMINAL: Frail, soft, nontender, non-distended, no obvious organomegaly. SKIN: Patient does have a number of rather large sebaceous cysts, 3 in total, on his back. on his back. EXTREMITIES: Patient does have a right [id number] amputation. Left leg demonstrates no edema. No clubbing. Fingertips are nicotine stained NEUROLOGICAL: Patient is alert and oriented to person and place. No focal deficits PSYCHOLOGICAL: Patient does describe significant paranoia. Although improved from previous days exam LABORATORY DATA: Please see below IMAGING STUDIES: Chest x-ray (08/15/19): Large mass in the left apex with mediastinal adenopathy. Infiltrate in the right base. Head CT (08/15/19): Small possible subacute left occipital lobe infarct. MRI may be considered. No acute intracranial hemorrhage. MICROBIOLOGY: Please see below. ASSESSMENT AND PLAN: Patient is a 73-year-old man with a past medical history significant for recently diagnosed lung cancer, who presented to emergency department with his family with a chief complaint of altered mental status. PROBLEMS: #Delirium: The etiology is not completely clear certainly could be secondary to urinary tract infection which with antibiotic therapy is improving at this time. It is also possible that this medication adverse effect as we have discontinued potentially suspicious medications to cause this. Patient continues to improve at this time. #Urinary tract infection UA performed in the emergency department does demonstrate 3+ LE, 3+ bacteria. Reflux culture currently pending. Leukocytosis on CBC. Patient currently being treated with empiric ceftriaxone. Antibiotic choice pending culture sensitivities. #Transient troponin elevation In the emergency department, patient's troponin was found to be mildly elevated at 0.12. Repeat evaluation shows a decreased to 0.08. Suspect secondary to demand ischemia related to the stress state he presented in including dehydration #Squamous cell carcinoma X-ray imaging does demonstrate a known mass in the left apex with mediastinal adenopathy. 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 Medical record indicates that the patient is currently seeing Dr. Abdalla with an intention for radiation therapy. He is yet to start any formal chemotherapy. Given his frailty and questionable mental status I suspect his overall prognosis to be quite poor and suspected to be hospice appropriate. #COPD Patient does carry a history of greater than [id number] of active smoking DuoNeb's 2 mg every 6 hours NEVAEH and every 2 hours PRN Continue on supplementary oxygen via nasal cannula. Titrate for sats 80-92 Acapella treatments for secretion mobilization #Hypertension Patient has remained normotensive in the hospital. His home medications of amlodipine 10 mg metoprolol 50 twice a day have been continued. #Coronary artery disease Continue patient on his home aspirin regimen in addition to statin and beta anabel therapy #Anxiety/depression Continue patient's home medication of BuSpar and Paxil Consider one-to-one sitter should patient's paranoia increase or should it become more agitated. #Nicotine dependence Patient reports an extensive smoking history. He states that up until 4 years ago he was smoking approximately 4 packs per day. Since then, he has reduced his cigarette usage to approximately 1 pack per day. Consider nicotine patch placement once etiology patient's altered mental status has become more clear. #Below the knee amputation and chronic pain Patient's Percocet has been held secondary to altered mental status. Currently prescribed Tylenol as needed for pain or discomfort. No complaints of pain at th is time. #Malnutrition Most likely related to patient's squamous cell carcinoma, Continue to encourage calorie dense diet Ensure shakes as needed for supplementation #BPH/Urinary retention Continue home Flomax and finasteride #Possible subacute infarct: It is in the occipital lobe however feel this is less likely any explanation for his symptoms. He recently had an echocardiogram in fact 2 over the last month that did not reveal any etiology for thrombus. It was some concern that he did have atrial flutter during his previous hospitalization however no EKGs demonstrate this and he did have a cardiology consult was unable to locate any convincing strips to suggest this diagnosis also. I will check a TSH and A1c lipid panel. I will monitor him on telemetry for 24 hours. However my suspicion for true CVA slower at this time. He certainly is hypercoagulable but I hesitate to anticoagulate him given his current mental status and concur with cardiology's recent assessment of the risks of bleeding outweigh potential benefits of anticoagulation. Could consider rechecking a CT scan of the brain for reassessment of this possible lesion. We're attempting to see if he is able to undergo an MRI with his stents which are in place in his leg. DVT PROPHYLAXIS: Subcutaneous heparin DISPOSITION: Pending clinical improvement. PFS consult ordered as patient will likely require placement. VS, I&O, 24H, Jimbone Vital Signs/I&O Vital Signs Date Time Temp Pulse Resp B/P (MAP) Pulse Ox O2 Delivery O2 Flow Rate FiO2 08/17/19 11:47 3.0 08/17/19 09:49 64 110/54 08/17/19 06:00 97.6 20 94 Nasal Cannula I&O- Last 24 Hours up to 6 AM 08/17/19 05:59 Intake Total 2820 ml Output Total 575 ml Balance 2245 ml Laboratory Data 24H LABS Laboratory Tests 2 08/17/19 07:43: Nucleated Red Blood Cells % (auto) 0.0, Anion Gap 6L, Glomerular Filtration Rate > 60.0, Calcium Level 9.0, Triglycerides Level 220H, Total Cholesterol 206H, LDL Cholesterol 123H, Non-HDL Cholesterol (LDL + VLDL) 167, Total HDL Cholesterol 39L, Cholesterol/HDL Ratio 5.282H CBC/BMP Laboratory Tests 08/17/19 07:43 Microbiology Microbiology 08/16/19 Blood Culture - Preliminary, Resulted No growth after 24 hours . All specim... 08/16/19 Blood Culture - Preliminary, Resulted No growth after 24 hours . All specim... 08/15/19 Urine Culture, Received Pending EUGENIA TRUJILLO MD Aug 17, 2019 13:28
[2019-08-17 15:16] VITALS: BP 114/54
[2019-08-17 16:30] VITALS: BP 121/64
[2019-08-17] MEDS: FINASTERIDE 5 MG TAB PO SCH (21:36)
[2019-08-17] MEDS: ATORVASTATIN 20 MG TAB PO SCH (21:36)
[2019-08-17] MEDS: PARoxetine 10MG TABLET PO SCH (21:36)
[2019-08-17 22:00] VITALS: BP 122/62
[2019-08-18] MEDS: IPRATROPIUM 0.5MG/ALBUTEROL 2.5MG INH SOL UD 3ML (DUONEB)(J7620) NEB SCH ×4 (00:16→20:00)
[2019-08-18] MEDS: cefTRIAXone SOD 2 GM in D5W MINI-BAG PLUS 50 ML IV SCH (05:06)
[2019-08-18] MEDS: HEPARIN SOD (PORCINE) 5000 UNITS/ML VIAL SC SCH ×3 (05:06→21:35)
[2019-08-18 06:00] VITALS: BP 150/62
[2019-08-18 06:20] LABS: HEMATOCRIT 37.7 % (42.0-52.0); HEMOGLOBIN 11.5 g/dl (13.5-17.5); MEAN CORPUSCULAR HGB CONC 30.5 g/dl (32.0-36.5); MEAN CORPUSCULAR VOLUME 91.7 fl (80.0-96.0); PLATELET COUNT, AUTOMATED 338 10^3/uL (150-450); RED BLOOD COUNT 4.11 10^6/uL (4.30-6.10); WHITE BLOOD COUNT 18.6 10^3/uL (4.0-10.0)
[2019-08-18 06:34] LABS: BLOOD UREA NITROGEN 17 MG/DL (7-18); CALCIUM LEVEL 9.5 MG/DL (8.8-10.2); CARBON DIOXIDE LEVEL 29 MEQ/L (21-32); CHLORIDE LEVEL 107 MEQ/L (98-107); CREATININE FOR GFR 0.72 MG/DL (0.70-1.30); GLOMERULAR FILTRATION RATE > 60.0 (>42); GLUCOSE, FASTING 135 MG/DL (70-100); POTASSIUM SERUM 3.2 MEQ/L (3.5-5.1); SODIUM LEVEL 142 MEQ/L (136-145)
--- NOTE | 2019-08-18 07:25 | REP ---
DUPLEX CAROTID SONOGRAPHY: HISTORY: Question CVA. FINDINGS: Antegrade flow was observed in both vertebral arteries. RIGHT CAROTID: The right common carotid artery shows mixed plaquing. There is moderate mixed plaquing in the bulb, proximal ICA and proximal ECA on the right side. Peak systolic flow velocity in the right ICA is elevated. Velocity Chart Right Carotid: PSV EDV Right CCA 82 cm/s Right ICA 161 cm/s 23 cm/s Right ECA 128 cm/s Right ICA/CCA ratio 0.5. IMPRESSION: 15-69% narrowing in the right ICA by Doppler velocity criteria, probably near the lower end of this range. LEFT CAROTID: The left common carotid artery shows mixed plaquing. There is moderate mixed plaquing in the bulb, proximal ICA and proximal ECA on the left side. Color flow and spectral Doppler interrogation are unremarkable on the left. Velocity Chart Left Carotid: PSV EDV Left CCA 93 cm/s Left ICA 99 cm/s 18 cm/s Left ECA 119 cm/s Left ICA/CCA ratio normal 0.9. IMPRESSION: Less than 50% category narrowing in the left ICA by Doppler velocity criteria. Electronically Signed by Carlos Duffy MD 08/18/2019 07:32 A
[2019-08-18 07:37] LABS: HEMOGLOBIN A1c 6.1 %
[2019-08-18 07:44] LABS: MAGNESIUM LEVEL 2.1 MG/DL (1.8-2.4)
[2019-08-18] MEDS ORDERED: POTASSIUM CHLORIDE 10 MEQ SR TABLET PO ONE (10:00)
--- NOTE | 2019-08-18 10:48 | ECGEPIP ---
[facility] Test Date: 2019-08-17 Pat Name: KEELY STALLINGS Department: Room: [place] [address] Gender: Male [employer] Builder: ALEXANDRA : 1945 Requested By: EUGENIA TRUJILLO Order Number: [id number] Reading MD: Matthew Mendoza Measurements Intervals Hunter Rate: 71 P: 61 NH: 165 QRS: 182 QRSD: 173 T: -23 QT: 411 QTc: 449 Interpretive Statements SINUS RHYTHM WITH SINUS ARRHYTHMIA MARKED RIGHT AXIS DEVIATION RIGHT BUNDLE BRANCH BLOCK MARKED T-WAVE ABNORMALITY, CONSIDER ANTEROLATERAL ISCHEMIA Slower rate but otherwise unchanged from 08/15/19. Electronically Signed on 08-18-2019 10:48:38 EDT by Matthew Mendoza
[2019-08-18] MEDS: FOLIC ACID 1 MG TAB PO SCH (11:11)
[2019-08-18] MEDS: NICOTINE 21MG/24HR 1 EA TRANSDERMAL TD SCH (11:11)
[2019-08-18] MEDS: busPIRone 10 MG TAB PO SCH ×2 (11:11→21:35)
[2019-08-18] MEDS: THIAMINE 100 MG TAB PO SCH (11:12)
[2019-08-18] MEDS: VITAMIN D (CHOLECALCIFEROL) 400 INTERNATIONAL UNITS TAB PO SCH (11:12)
[2019-08-18] MEDS: ASPIRIN 81 MG ENTERIC TAB PO SCH (11:12)
[2019-08-18] MEDS: TAMSULOSIN 0.4 MG CAP PO SCH (11:12)
[2019-08-18] MEDS: METOPROLOL TART 50 MG TAB PO SCH ×2 (11:14→21:35)
[2019-08-18] MEDS: amLODIPine 10 MG TAB PO SCH (11:15)
[2019-08-18] MEDS: ACETAMINOPHEN TAB 650MG DOSE (2X325MG) PO PRN ×2 (13:50→22:42)
[2019-08-18 14:00] VITALS: BP 139/64
--- NOTE | 2019-08-18 14:55 | IPNPDOC ---
Date Seen The patient was seen on 08/18/19. Progress Note SUBJECTIVE: Patient was difficult to understand this morning, but very adamant that he would like to leave. He tells me that his girlfriend is neck or and will take care of him after he is discharged. Difficult to determine whether he is actively hallucinating as he was oriented to person, place and time. He repeatedly told me that he would like to leave in the next 10-15 minutes and if we did not discharge him he would go on his own. He did deny any complaints this morning and did not report any shortness of breath, fevers or chills. OBJECTIVE PHYSICAL EXAMINATION: VITAL SIGNS: Please see below. GENERAL: Sitting in wheelchair at bedside, somewhat agitated and uncooperative, appears stated age, in no acute distress HEENT: Moist mucus membranes, EOMI, PERRLA, neck is supple without lymphadenopathy or thyromegaly CARDIOVASCULAR: RRR, no murmurs/rubs/gallops, normal S1 and S2 RESPIRATORY: clear to auscultation bilaterally without any adventitious breath sounds appreciated ABDOMINAL: Soft, nontender to palpation, +BS, no masses or organomegaly EXTREMITIES: R BKA, no clubbing/cyanosis/edema NEUROLOGICAL: CN 2-12 intact without any focal deficits appreciated PSYCHOLOGICAL: AAOx3, anxious mood/affect LABORATORY DATA, IMAGING STUDIES, MICROBIOLOGY: Please see below. DVT prophylaxis ordered?: none ASSESSMENT AND PLAN: This is a 73-year-old male with past medical history sign ificant for recently diagnosed lung cancer, who presented to the emergency department with his family for altered mental status. PROBLEMS: 1. Delirium versus altered mental status: etiology unknown. Possibly 2/2 metastases from cancer vs medication side effect vs encephalopathy -The patient does appear to be doing better today from delirium standpoint. Would still like for him to have MRI done to assess whether he has mets to the brain but awaiting prior records to determine what type of stents he has so the he could have this MRI. -Patient tells us that he does not want anything done or any further workup. Hospice referral placed. 2. Possible subacute infarct in setting of a-flutter on previous hospitalization. Does not explain delirium. Neuro exam was WNL this morning. -May get another head CT if unable to get MRI 3. Urinary tract infection: -Switched IV Rocephin to PO Bactrim 4. Elevated troponins: resolved. -Trended down. Likely due to demand ischemia from dehydration 5. Squamous cell carcinoma, T4N2M0 stage IIIB SCC of lung with L subclavian artery encasement -Patient has a known left apical mass + mediastinal adenopathy -Patient follows with [facility] but will determine whether we will proceed with treatment after Hospice referral 6. COPD -Continue supplemental O2, Duonebs, Acapella 7. Hypertension: -Continue Amlodipine 10mg, Metoprolol 50 BID 8. Coronary artery disease: -Continue ASA, BB, statin 9. Anxiety/depression -Continue Buspar and Paxil 10. Nicotine dependence: -Will order nicotene patch 11. Right BKA and chronic pain -Currently not complaining of any pain. Tylenol ordered. Holding home Percocet. 12. BPH/urinary retention -Continue Flomax/Finasteride DISPOSITION: Pending hospice referral and continued improvement in altered mental status VS, I&O, 24H, Fishbone Vital Signs/I&O Vital Signs Date Time Temp Pulse Resp B/P (MAP) Pulse Ox O2 Delivery O2 Flow Rate FiO2 08/18/19 11:14 93 117/57 08/18/19 06:00 97.0 20 95 Nasal Cannula 1.0 I&O- Last 24 Hours up to 6 AM 08/18/19 06:00 Intake Total 1160 ml Output Total 300 ml Balance 860 ml Laboratory Data 24H LABS Laboratory Tests 2 08/18/19 05:55: Nucleated Red Blood Cells % (auto) 0.0, Anion Gap 6L, Glomerular Filtration Rate > 60.0, Estimated Mean Plasma Glucose 128H, Hemoglobin A1c 6.1, Calcium Level 9.5, Magnesium Level 2.1 CBC/BMP Laboratory Tests 08/18/19 05:55 Microbiology Microbiology 08/16/19 Blood Culture - Preliminary, Resulted No Growth after 48 hours. All Specime... 08/16/19 Blood Culture - Preliminary, Resulted No Growth after 48 hours. All Specime... 08/15/19 Urine Culture - Final, Complete Escherichia Coli GME ATTESTATION GME ATTESTATION I saw and evaluated the patient. I agree with the findings and plan of care as documented in the above note TAQUERIA VARELA MD Aug 18, 2019 14:54 EUGENIA TRUJILLO MD Aug 27, 2019 12:05
[2019-08-18] MEDS: BACTRIM 160MG/800MG DS TAB PO SCH (21:34)
[2019-08-18] MEDS: PARoxetine 10MG TABLET PO SCH (21:34)
[2019-08-18] MEDS: ATORVASTATIN 20 MG TAB PO SCH (21:35)
[2019-08-18] MEDS: FINASTERIDE 5 MG TAB PO SCH (21:35)
[2019-08-18 22:00] VITALS: BP 118/56
[2019-08-19] MEDS: IPRATROPIUM 0.5MG/ALBUTEROL 2.5MG INH SOL UD 3ML (DUONEB)(J7620) NEB SCH ×4 (01:59→18:27)
[2019-08-19] MEDS: HEPARIN SOD (PORCINE) 5000 UNITS/ML VIAL SC SCH ×3 (05:06→21:20)
[2019-08-19 06:00] VITALS: BP 126/63
[2019-08-19 06:13] LABS: HEMATOCRIT 35.7 % (42.0-52.0); MEAN CORPUSCULAR HEMOGLOBIN 28.5 pg (27.0-33.0); MEAN CORPUSCULAR HGB CONC 30.8 g/dl (32.0-36.5); MEAN CORPUSCULAR VOLUME 92.5 fl (80.0-96.0); PLATELET COUNT, AUTOMATED 326 10^3/uL (150-450); RED BLOOD COUNT 3.86 10^6/uL (4.30-6.10); WHITE BLOOD COUNT 16.1 10^3/uL (4.0-10.0)
[2019-08-19 06:35] LABS: BLOOD UREA NITROGEN 17 MG/DL (7-18); CALCIUM LEVEL 9.4 MG/DL (8.8-10.2); CARBON DIOXIDE LEVEL 33 MEQ/L (21-32); CHLORIDE LEVEL 108 MEQ/L (98-107); CREATININE FOR GFR 0.73 MG/DL (0.70-1.30); GLOMERULAR FILTRATION RATE > 60.0 (>42); GLUCOSE, FASTING 118 MG/DL (70-100); POTASSIUM SERUM 3.5 MEQ/L (3.5-5.1); SODIUM LEVEL 144 MEQ/L (136-145)
[2019-08-19] MEDS: busPIRone 10 MG TAB PO SCH ×2 (09:20→21:20)
[2019-08-19] MEDS: TAMSULOSIN 0.4 MG CAP PO SCH (09:21)
[2019-08-19] MEDS: THIAMINE 100 MG TAB PO SCH (09:21)
[2019-08-19] MEDS: METOPROLOL TART 50 MG TAB PO SCH ×2 (09:22→21:21)
[2019-08-19] MEDS: BACTRIM 160MG/800MG DS TAB PO SCH ×2 (09:22→21:20)
[2019-08-19] MEDS: amLODIPine 10 MG TAB PO SCH (09:22)
[2019-08-19] MEDS: ASPIRIN 81 MG ENTERIC TAB PO SCH (09:22)
[2019-08-19] MEDS: VITAMIN D (CHOLECALCIFEROL) 400 INTERNATIONAL UNITS TAB PO SCH (09:23)
[2019-08-19] MEDS: FOLIC ACID 1 MG TAB PO SCH (09:23)
[2019-08-19] MEDS: NICOTINE 21MG/24HR 1 EA TRANSDERMAL TD SCH (09:23)
[2019-08-19] MEDS: ACETAMINOPHEN TAB 650MG DOSE (2X325MG) PO PRN ×2 (13:00→21:21)
--- NOTE | 2019-08-19 13:22 | IPNPDOC ---
Date Seen The patient was seen on 08/19/19. Progress Note SUBJECTIVE: Patient's altered mental status is improving this morning. He continues to talk about some of money that was taken from him and to question whether his girlfriend is still with him. He has no other complaints. Nursing reports that he lowered himself to the ground when transferring from wheelchair to bed yesterday. No injuries reported. No other acute issues reported from overnight. OBJECTIVE PHYSICAL EXAMINATION: VITAL SIGNS: Please see below. GENERAL: Sitting in wheelchair at bedside, somewhat agitated and uncooperative, appears stated age, in no acute distress HEENT: Moist mucus membranes, EOMI, PERRLA, neck is supple without lymphadenopathy or thyromegaly CARDIOVASCULAR: RRR, no murmurs/rubs/gallops, normal S1 and S2 RESPIRATORY: clear to auscultation bilaterally without any adventitious breath sounds appreciated ABDOMINAL: Soft, nontender to palpation, +BS, no masses or organomegaly EXTREMITIES: R BKA, no clubbing/cyanosis/edema NEUROLOGICAL: CN 2-12 intact without any focal deficits appreciated PSYCHOLOGICAL: AAOx3, anxious mood/affect LABORATORY DATA, IMAGING STUDIES, MICROBIOLOGY: Please see below. DVT prophylaxis ordered?: none ASSESSMENT AND PLAN: This is a 73-year-old male with past medical history significant for recently diagnosed lung cancer, who presented to the emergency department with his family for altered mental status. PROBLEMS: 1. Delirium versus altered mental status: etiology unknown. Possibly 2/2 metastases from cancer vs medication side effect vs encephalopathy -The patient does appear to be doing better today from delirium standpoint. He refused MRI for further workup. -Patient tells us that he does not want anything done or any further workup. Palliative care referral placed. 2. Possible subacute infarct in setting of a-flutter on previous hospitalization. Does not explain delirium. Neuro exam was WNL this morning. -May get another head CT if unable to get MRI if patient is agreeable 3. Urinary tract infection: -Switched IV Rocephin to PO Bactrim, day 2 out of 5 4. Elevated troponins: resolved. -Trended down. Likely due to demand ischemia from dehydration 5. 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 COPD -Continue supplemental O2, Duonebs, Acapella 7. Hypertension: -Continue Amlodipine 10mg, Metoprolol 50 BID 8. Coronary artery disease: -Continue ASA, BB, statin 9. Anxiety/depression -Continue Buspar and Paxil 10. Nicotine dependence: -Will order nicotene patch 11. Right BKA and chronic pain -Currently not complaining of any pain. Tylenol ordered. Holding home Percocet. 12. BPH/urinary retention -Continue Flomax/Finasteride DISPOSITION: Pending palliative care referral and conversation with healthcare proxy to determine next steps. VS, I&O, 24H, Fishbone Vital Signs/I&O Vital Signs Date Time Temp Pulse Resp B/P (MAP) Pulse Ox O2 Delivery O2 Flow Rate FiO2 08/19/19 09:22 102 141/59 08/19/19 06:00 98.0 18 91 08/18/19 22:00 Room Air 08/18/19 14:00 1.0 I&O- Last 24 Hours up to 6 AM 08/19/19 06:00 Intake Total 1351 ml Output Total 100 ml Balance 1251 ml Laboratory Data 24H LABS Laboratory Tests 2 08/19/19 05:52: Nucleated Red Blood Cells % (auto) 0.0, Anion Gap 3L, Glomerular Filtration Rate > 60.0, Calcium Level 9.4 CBC/BMP Laboratory Tests 08/19/19 05:52 Microbiology Microbiology 08/16/19 Blood Culture - Preliminary, Resulted No Growth after 72 hours. All specime... 08/16/19 Blood Culture - Preliminary, Resulted No Growth after 72 hours. All specime... 08/15/19 Urine Culture - Final, Complete Escherichia Coli GME ATTESTATION GME ATTESTATION My faculty preceptor for this patient encounter was physically present during the encounter and was fully available. All aspects of the patient interview, examination, medical decision making process, and medical care plan development were reviewed and approved by the faculty preceptor. The faculty preceptor is aware and concurs with the plan as stated in the body of this note and will attest to such by his/her cosignature. ATTENDING NOTE I, Kandi Finley, have independently examined this patient and performed my own physical exam, as well as reviewed the documentation and edited where necessary. I have discussed in detail with the resident / student the findings and plan of treatment as documented by the resident / student and edited their note. I agree with their findings and treatment plan and have edited their documentation. I will continue to follow the patient during this hospital stay. TAQUERIA VARELA MD Aug 19, 2019 13:22 KANDI FINLEY MD Aug 19, 2019 15:04
[2019-08-19 14:00] VITALS: BP 112/62
[2019-08-19] MEDS: FINASTERIDE 5 MG TAB PO SCH (21:20)
[2019-08-19] MEDS: PARoxetine 10MG TABLET PO SCH (21:20)
[2019-08-19] MEDS: ATORVASTATIN 20 MG TAB PO SCH (21:20)
[2019-08-19 22:00] VITALS: BP 112/62
[2019-08-19] MEDS: IPRATROPIUM 0.5MG/ALBUTEROL 2.5MG INH SOL UD 3ML (DUONEB)(J7620) NEB PRN (23:39)
[2019-08-20] MEDS: IPRATROPIUM 0.5MG/ALBUTEROL 2.5MG INH SOL UD 3ML (DUONEB)(J7620) NEB SCH ×4 (02:00→19:25)
[2019-08-20] MEDS: ACETAMINOPHEN TAB 650MG DOSE (2X325MG) PO PRN ×4 (05:05→23:28)
[2019-08-20] MEDS: HEPARIN SOD (PORCINE) 5000 UNITS/ML VIAL SC SCH ×3 (05:06→21:25)
[2019-08-20 06:00] VITALS: BP 123/64
[2019-08-20 06:15] LABS: HEMATOCRIT 32.6 % (42.0-52.0); HEMOGLOBIN 10.2 g/dl (13.5-17.5); MEAN CORPUSCULAR HEMOGLOBIN 29.3 pg (27.0-33.0); MEAN CORPUSCULAR HGB CONC 31.3 g/dl (32.0-36.5); MEAN CORPUSCULAR VOLUME 93.7 fl (80.0-96.0); PLATELET COUNT, AUTOMATED 287 10^3/uL (150-450); RED BLOOD COUNT 3.48 10^6/uL (4.30-6.10); WHITE BLOOD COUNT 16.6 10^3/uL (4.0-10.0)
[2019-08-20 06:42] LABS: BLOOD UREA NITROGEN 15 MG/DL (7-18); CARBON DIOXIDE LEVEL 31 MEQ/L (21-32); CHLORIDE LEVEL 109 MEQ/L (98-107); CREATININE FOR GFR 0.78 MG/DL (0.70-1.30); GLOMERULAR FILTRATION RATE > 60.0 (>42); GLUCOSE, FASTING 115 MG/DL (70-100); POTASSIUM SERUM 3.6 MEQ/L (3.5-5.1); SODIUM LEVEL 143 MEQ/L (136-145)
[2019-08-20] MEDS: amLODIPine 10 MG TAB PO SCH (09:00)
[2019-08-20] MEDS: METOPROLOL TART 50 MG TAB PO SCH ×2 (09:00→21:26)
[2019-08-20] MEDS: NICOTINE 21MG/24HR 1 EA TRANSDERMAL TD SCH (10:10)
[2019-08-20] MEDS: VITAMIN D (CHOLECALCIFEROL) 400 INTERNATIONAL UNITS TAB PO SCH (10:10)
[2019-08-20] MEDS: FOLIC ACID 1 MG TAB PO SCH (10:10)
[2019-08-20] MEDS: ASPIRIN 81 MG ENTERIC TAB PO SCH (10:10)
[2019-08-20] MEDS: BACTRIM 160MG/800MG DS TAB PO SCH ×2 (10:11→21:25)
[2019-08-20] MEDS: TAMSULOSIN 0.4 MG CAP PO SCH (10:11)
[2019-08-20] MEDS: busPIRone 10 MG TAB PO SCH ×2 (10:11→21:25)
[2019-08-20] MEDS: THIAMINE 100 MG TAB PO SCH (10:11)
--- NOTE | 2019-08-20 12:17 | IPNPDOC ---
Date Seen The patient was seen on 08/20/19. Progress Note SUBJECTIVE: She was seen and examined in the hallway as he was riding around on his wheelchair. Patient's altered mental status is still improving. Patient continues to express his wishes to go home. Palliative care consult in place. He does report some difficulty breathing this morning. He is eating and drinking well. OBJECTIVE PHYSICAL EXAMINATION: VITAL SIGNS: Please see below. GENERAL: Sitting in wheelchair , somewhat agitated and uncooperative, appears stated age, in no acute distress HEENT: Moist mucus membranes, EOMI, PERRLA, neck is supple without lymphadenopathy or thyromegaly CARDIOVASCULAR: RRR, no murmurs/rubs/gallops, normal S1 and S2 RESPIRATORY: clear to auscultation bilaterally without any adventitious breath sounds appreciated ABDOMINAL: Soft, nontender to palpation, +BS, no masses or organomegaly EXTREMITIES: R BKA, no clubbing/cyanosis/edema NEUROLOGICAL: CN 2-12 intact without any focal deficits appreciated PSYCHOLOGICAL: AAOx3, anxious mood/affect LABORATORY DATA, IMAGING STUDIES, MICROBIOLOGY: Please see below. DVT prophylaxis ordered?: none ASSESSMENT AND PLAN: This is a 73-year-old male with past medical history significant for recently diagnosed lung cancer, who presented to the emergency department with his family for altered mental status. PROBLEMS: 1. Acute metabolic encephalopathy - possibly 2/2 UTI, possibly 2/2 medications, possibly 2/2 delirium on dementia, less likely 2/2 metastases, -The patient does appear to be doing better today from delirium standpoint. - He refused MRI for further workup. -Patient tells us that he does not want anything done or any further workup. Palliative care referral placed. -We'll contact his healthcare proxy to further discuss the plans with the patient. 2. Possible subacute infarct in setting of a-flutter on previous hospitalization. Does not explain delirium. Neuro exam was WNL this morning. -May get another head CT if unable to get MRI if patient is agreeable 3. Urinary tract infection: -Switched IV Rocephin to PO Bactrim, day 2 out of 5 4. Elevated troponins: resolved. -Trended down. Likely due to demand ischemia from dehydration 5. 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 COPD -Continue supplemental O2, Duonebs, Acapella 7. Hypertension: -Continue Amlodipine 10mg, Metoprolol 50 BID, hold parameters have been put in place 8. Coronary artery disease: -Continue ASA, BB, statin 9. Anxiety/depression -Continue Buspar and Paxil 10. Nicotine dependence: -Will order nicotene patch 11. Right BKA and chronic pain -Currently not complaining of any pain. Tylenol ordered. Holding home Percocet. 12. BPH/urinary retention -Continue Flomax/Finasteride DISPOSITION: Pending palliative care referral and conversation with healthcare proxy to determine next steps VS, I&O, 24H, Fishbone Vital Signs/I&O Vital Signs Date Time Temp Pulse Resp B/P (MAP) Pulse Ox O2 Delivery O2 Flow Rate FiO2 08/20/19 06:00 98.2 77 18 123/64 (83) 91 Nasal Cannula 1.0 I&O- Last 24 Hours up to 6 AM 08/20/19 05:59 Intake Total 1440 ml Output Total 600 ml Balance 840 ml Laboratory Data 24H LABS Laboratory Tests 2 08/20/19 05:57: Nucleated Red Blood Cells % (auto) 0.0, Anion Gap 3L, Glomerular Filtration Rate > 60.0, Calcium Level 9.0 CBC/BMP Laboratory Tests 08/20/19 05:57 Microbiology Microbiology 08/16/19 Blood Culture - Preliminary, Resulted No Growth after 72 hours. All specime... 08/16/19 Blood Culture - Preliminary, Resulted No Growth after 72 hours. All specime... 08/15/19 Urine Culture - Final, Complete Escherichia Coli GME ATTESTATION GME ATTESTATION My faculty preceptor for this patient encounter was physically present during the encounter and was fully available. All aspects of the patient interview, examination, medical decision making process, and medical care plan development were reviewed and approved by the faculty preceptor. The faculty preceptor is aware and concurs with the plan as stated in the body of this note and will attest to such by his/her cosignature. ATTENDING NOTE I, Kandi Finley, have independently examined this patient and performed my own physical exam, as well as reviewed the documentation and edited where necessary. I have discussed in detail with the resident / student the findings and plan of treatment as documented by the resident / student and edited their note. I agree with their findings and treatment plan and have edited their documentation. I will continue to follow the patient during this hospital stay. TAQUERIA VARELA MD Aug 20, 2019 12:17 KANDI FINLEY MD Aug 20, 2019 14:35
[2019-08-20 14:00] VITALS: BP 121/62
[2019-08-20] MEDS: FINASTERIDE 5 MG TAB PO SCH (21:25)
[2019-08-20] MEDS: ATORVASTATIN 20 MG TAB PO SCH (21:25)
[2019-08-20] MEDS: PARoxetine 10MG TABLET PO SCH (21:25)
[2019-08-20 22:00] VITALS: BP 119/59
[2019-08-21] MEDS: IPRATROPIUM 0.5MG/ALBUTEROL 2.5MG INH SOL UD 3ML (DUONEB)(J7620) NEB SCH ×5 (02:23→23:54)
[2019-08-21] MEDS: HEPARIN SOD (PORCINE) 5000 UNITS/ML VIAL SC SCH ×3 (05:38→21:07)
[2019-08-21] MEDS: ACETAMINOPHEN TAB 650MG DOSE (2X325MG) PO PRN ×3 (05:42→21:06)
[2019-08-21 06:00] VITALS: BP 119/60
[2019-08-21 06:34] LABS: HEMATOCRIT 31.6 % (42.0-52.0); HEMOGLOBIN 9.7 g/dl (13.5-17.5); MEAN CORPUSCULAR HEMOGLOBIN 28.1 pg (27.0-33.0); MEAN CORPUSCULAR HGB CONC 30.7 g/dl (32.0-36.5); MEAN CORPUSCULAR VOLUME 91.6 fl (80.0-96.0); PLATELET COUNT, AUTOMATED 294 10^3/uL (150-450); RED BLOOD COUNT 3.45 10^6/uL (4.30-6.10); WHITE BLOOD COUNT 16.9 10^3/uL (4.0-10.0)
[2019-08-21 07:02] LABS: BLOOD UREA NITROGEN 15 MG/DL (7-18); CALCIUM LEVEL 9.2 MG/DL (8.8-10.2); CARBON DIOXIDE LEVEL 30 MEQ/L (21-32); CHLORIDE LEVEL 108 MEQ/L (98-107); CREATININE FOR GFR 0.81 MG/DL (0.70-1.30); GLOMERULAR FILTRATION RATE > 60.0 (>42); GLUCOSE, FASTING 97 MG/DL (70-100); POTASSIUM SERUM 3.7 MEQ/L (3.5-5.1); SODIUM LEVEL 142 MEQ/L (136-145)
[2019-08-21] MEDS: NYSTATIN 500,000 U/5 ML SUSP UDC SS SCH ×3 (08:34→21:06)
[2019-08-21] MEDS: FOLIC ACID 1 MG TAB PO SCH (08:35)
[2019-08-21] MEDS: ASPIRIN 81 MG ENTERIC TAB PO SCH (08:35)
[2019-08-21] MEDS: TAMSULOSIN 0.4 MG CAP PO SCH (08:35)
[2019-08-21] MEDS: BACTRIM 160MG/800MG DS TAB PO SCH ×2 (08:35→21:06)
[2019-08-21] MEDS: busPIRone 10 MG TAB PO SCH ×2 (08:35→21:06)
[2019-08-21] MEDS: VITAMIN D (CHOLECALCIFEROL) 400 INTERNATIONAL UNITS TAB PO SCH (08:35)
[2019-08-21] MEDS: THIAMINE 100 MG TAB PO SCH (08:35)
[2019-08-21] MEDS: NICOTINE 21MG/24HR 1 EA TRANSDERMAL TD SCH (08:36)
[2019-08-21] MEDS: amLODIPine 10 MG TAB PO SCH (08:36)
[2019-08-21] MEDS: METOPROLOL TART 50 MG TAB PO SCH ×2 (08:36→21:00)
[2019-08-21] MEDS: traMADol 50 MG TAB PO PRN ×2 (11:36→22:56)
[2019-08-21 14:00] VITALS: BP 103/50
--- NOTE | 2019-08-21 14:22 | IPNPDOC ---
Date Seen The patient was seen on 08/21/19. Progress Note SUBJECTIVE: She was seen and examined in his room this morning. . He had just told the nurse that he was having chest pain, but when I asked him he denied any chest pain. An EKG was ordered. He has no complaints today besides wanting to go home. No acute events overnight. OBJECTIVE PHYSICAL EXAMINATION: VITAL SIGNS: Please see below. GENERAL: Laying in bed appearing disheveled, appears stated age, in no acute distress HEENT: Moist mucus membranes, EOMI, PERRLA, neck is supple without ly mphadenopathy or thyromegaly CARDIOVASCULAR: RRR, no murmurs/rubs/gallops, normal S1 and S2 RESPIRATORY: clear to auscultation bilaterally without any adventitious breath sounds appreciated ABDOMINAL: Soft, nontender to palpation, +BS, no masses or organomegaly EXTREMITIES: R BKA, no clubbing/cyanosis/edema NEUROLOGICAL: CN 2-12 intact without any focal deficits appreciated PSYCHOLOGICAL: AAOx3, anxious mood/affect LABORATORY DATA, IMAGING STUDIES, MICROBIOLOGY: Please see below. DVT prophylaxis ordered?: none ASSESSMENT AND PLAN: This is a 73-year-old male with past medical history significant for recently diagnosed lung cancer, who presented to the emergency department with his family for altered mental status. PROBLEMS: 1. Acute metabolic encephalopathy - possibly 2/2 UTI, possibly 2/2 medications, possibly 2/2 delirium on dementia, less likely 2/2 metastases, -The patient's moods and orientation seems to be waxing and waning. Still unsure of etiology at this point. - He refused MRI for further workup. -Patient tells us that he does not want anything done or any further workup. Palliative care referral placed. -Discussions with healthcare proxy reveal that she is unable to take care of him fully at home, 24 hour care, therefore, placement will be pursued at this time 2. Possible subacute infarct in setting of a-flutter on previous hospitalization. Does not explain delirium. Neuro exam was WNL this morning. -May get another head CT if unable to get MRI if patient is agreeable 3. Urinary tract infection: -Switched IV Rocephin to PO Bactrim, day 2 out of 5 4. Elevated troponins: resolved. -Trended down. Likely due to demand ischemia from dehydration 5. 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 COPD -Continue supplemental O2, Duonebs, Acapella 7. Hypertension: -Continue Amlodipine 10mg, Metoprolol 50 BID, hold parameters have been put in place 8. Coronary artery disease: -Continue ASA, BB, statin 9. Anxiety/depression -Continue Buspar and Paxil 10. Nicotine dependence: -Will order nicotene patch 11. Right BKA and chronic pain -Currently not complaining of any pain. Tylenol ordered. Holding home Percocet. 12. BPH/urinary retention -Continue Flomax/Finasteride DISPOSITION: - Pending palliative care referral and conversation - Discussed with patient and HCP; current plan is for transition to senior living / sub-acute rehabilitation as HCP is unable to provide 24/7 care at home - Will transition patient to ALC status VS, I&O, 24H, Fishbone Vital Signs/I&O Vital Signs Date Time Temp Pulse Resp B/P (MAP) Pulse Ox O2 Delivery O2 Flow Rate FiO2 08/21/19 12:24 18 Room Air 08/21/19 08:36 82 106/56 08/21/19 06:00 97.8 90 08/20/19 06:00 1.0 I&O- Last 24 Hours up to 6 AM 08/21/19 06:00 Intake Total 510 ml Output Total 275 ml Balance 235 ml Laboratory Data 24H LABS Laboratory Tests 2 08/21/19 06:18: Nucleated Red Blood Cells % (auto) 0.0, Anion Gap 4L, Glomerular Filtration Rate > 60.0, Calcium Level 9.2 CBC/BMP Laboratory Tests 08/21/19 06:18 Microbiology Microbiology 08/16/19 Blood Culture - Final, Complete NO GROWTH AFTER 5 DAYS 08/16/19 Blood Culture - Final, Complete NO GROWTH AFTER 5 DAYS 08/15/19 Urine Culture - Final, Complete Escherichia Coli GME ATTESTATION GME ATTESTATION My faculty preceptor for this patient encounter was physically present during the encounter and was fully available. All aspects of the patient interview, examination, medical decision making process, and medical care plan development were reviewed and approved by the faculty preceptor. The faculty preceptor is aware and concurs with the plan as stated in the body of this note and will attest to such by his/her cosignature. ATTENDING NOTE I, Kandi Finley, have independently examined this patient and performed my own physical exam, as well as reviewed the documentation and edited where necessary. I have discussed in detail with the resident / student the findings and plan of treatment as documented by the resident / student and edited their note. I agree with their findings and treatment plan and have edited their documentation. I will continue to follow the patient during this hospital stay. TAQUERIA VARELA MD Aug 21, 2019 14:22 KANDI FINLEY MD Aug 21, 2019 15:38
[2019-08-21] MEDS: ONDANSETRON 4 MG TAB (S0181) PO PRN (18:49)
[2019-08-21] MEDS: ATORVASTATIN 20 MG TAB PO SCH (21:06)
[2019-08-21] MEDS: FINASTERIDE 5 MG TAB PO SCH (21:06)
[2019-08-21] MEDS: PARoxetine 10MG TABLET PO SCH (21:07)
[2019-08-22] MEDS: BENZOCAINE 10% 9GM TUBE (ANBESOL) TOP PRN (00:30)
[2019-08-22] MEDS: NYSTATIN 500,000 U/5 ML SUSP UDC SS SCH ×4 (01:53→23:04)
[2019-08-22] MEDS: ACETAMINOPHEN TAB 650MG DOSE (2X325MG) PO PRN ×3 (03:51→20:08)
[2019-08-22] MEDS: HEPARIN SOD (PORCINE) 5000 UNITS/ML VIAL SC SCH ×3 (05:48→23:04)
[2019-08-22 06:00] VITALS: BP 155/71
[2019-08-22 06:21] LABS: HEMATOCRIT 29.7 % (42.0-52.0); HEMOGLOBIN 9.1 g/dl (13.5-17.5); MEAN CORPUSCULAR HGB CONC 30.6 g/dl (32.0-36.5); MEAN CORPUSCULAR VOLUME 94.6 fl (80.0-96.0); PLATELET COUNT, AUTOMATED 289 10^3/uL (150-450); RED BLOOD COUNT 3.14 10^6/uL (4.30-6.10)
[2019-08-22 06:46] LABS: BLOOD UREA NITROGEN 19 MG/DL (7-18); CALCIUM LEVEL 9.2 MG/DL (8.8-10.2); CARBON DIOXIDE LEVEL 30 MEQ/L (21-32); CHLORIDE LEVEL 106 MEQ/L (98-107); CREATININE FOR GFR 0.99 MG/DL (0.70-1.30); GLOMERULAR FILTRATION RATE > 60.0 (>42); GLUCOSE, FASTING 107 MG/DL (70-100); POTASSIUM SERUM 3.7 MEQ/L (3.5-5.1); SODIUM LEVEL 141 MEQ/L (136-145)
[2019-08-22] MEDS: IPRATROPIUM 0.5MG/ALBUTEROL 2.5MG INH SOL UD 3ML (DUONEB)(J7620) NEB SCH ×3 (07:21→21:52)
[2019-08-22] MEDS: THIAMINE 100 MG TAB PO SCH (08:39)
[2019-08-22] MEDS: TAMSULOSIN 0.4 MG CAP PO SCH (08:39)
[2019-08-22] MEDS: FOLIC ACID 1 MG TAB PO SCH (08:39)
[2019-08-22] MEDS: amLODIPine 10 MG TAB PO SCH (08:39)
[2019-08-22] MEDS: ASPIRIN 81 MG ENTERIC TAB PO SCH (08:40)
[2019-08-22] MEDS: NICOTINE 21MG/24HR 1 EA TRANSDERMAL TD SCH (08:40)
[2019-08-22] MEDS: VITAMIN D (CHOLECALCIFEROL) 400 INTERNATIONAL UNITS TAB PO SCH (08:40)
[2019-08-22] MEDS: busPIRone 10 MG TAB PO SCH ×2 (08:40→20:08)
[2019-08-22] MEDS: BACTRIM 160MG/800MG DS TAB PO SCH ×2 (08:40→20:09)
[2019-08-22] MEDS: METOPROLOL TART 50 MG TAB PO SCH ×2 (08:41→20:09)
[2019-08-22] MEDS: NORCO, ANEXSIA 5/325MG TABLET (HYDROcodone/ACETAMINOPHEN) PO PRN ×3 (11:20→23:50)
--- NOTE | 2019-08-22 12:19 | ECGEPIP ---
[facility] Test Date: 2019-08-21 Pat Name: KEELY STALLINGS Department: Room: [place] [address] Gender: Male Continuous Improvement Lead: LIAN : 1945 Requested By: TAQUERIA VRAELA Order Number: [id number] Reading MD: Matthew Mendoza Measurements Intervals [place] Rate: 84 P: 78 ID: [id number] QRS: 226 QRSD: 168 T: 40 QT: 401 QTc: 475 Interpretive Statements Normal sinus rhythm with PACs. LA conduction disturbance Marked rightward axis and right bundle branch block; rule out right ventricular hypertrophy No significant change from 08/17/19 Electronically Signed on 08-22-2019 12:18:56 EDT by Matthew Mendoza
[2019-08-22] MEDS: ATORVASTATIN 20 MG TAB PO SCH (20:08)
[2019-08-22] MEDS: FINASTERIDE 5 MG TAB PO SCH (20:08)
[2019-08-22] MEDS: PARoxetine 10MG TABLET PO SCH (20:09)
[2019-08-22 20:30] VITALS: BP 90/50
[2019-08-22 21:30] VITALS: BP 131/58
[2019-08-23] MEDS: IPRATROPIUM 0.5MG/ALBUTEROL 2.5MG INH SOL UD 3ML (DUONEB)(J7620) NEB SCH ×4 (01:55→20:40)
[2019-08-23] MEDS: NYSTATIN 500,000 U/5 ML SUSP UDC SS SCH ×4 (02:36→21:21)
[2019-08-23] MEDS: ACETAMINOPHEN TAB 650MG DOSE (2X325MG) PO PRN ×3 (02:43→16:03)
[2019-08-23] MEDS: NORCO, ANEXSIA 5/325MG TABLET (HYDROcodone/ACETAMINOPHEN) PO PRN ×5 (05:52→23:23)
[2019-08-23] MEDS: HEPARIN SOD (PORCINE) 5000 UNITS/ML VIAL SC SCH ×3 (05:52→21:21)
[2019-08-23 06:00] VITALS: BP 95/54
[2019-08-23 07:00] LABS: HEMATOCRIT 30.2 % (42.0-52.0); HEMOGLOBIN 9.4 g/dl (13.5-17.5); MEAN CORPUSCULAR HEMOGLOBIN 29.2 pg (27.0-33.0); MEAN CORPUSCULAR HGB CONC 31.1 g/dl (32.0-36.5); MEAN CORPUSCULAR VOLUME 93.8 fl (80.0-96.0); PLATELET COUNT, AUTOMATED 321 10^3/uL (150-450); RED BLOOD COUNT 3.22 10^6/uL (4.30-6.10); WHITE BLOOD COUNT 15.8 10^3/uL (4.0-10.0)
[2019-08-23 07:25] LABS: BLOOD UREA NITROGEN 24 MG/DL (7-18); CALCIUM LEVEL 9.5 MG/DL (8.8-10.2); CARBON DIOXIDE LEVEL 28 MEQ/L (21-32); CHLORIDE LEVEL 109 MEQ/L (98-107); CREATININE FOR GFR 1.24 MG/DL (0.70-1.30); GLOMERULAR FILTRATION RATE > 60.0 (>42); GLUCOSE, FASTING 95 MG/DL (70-100); POTASSIUM SERUM 3.8 MEQ/L (3.5-5.1); SODIUM LEVEL 142 MEQ/L (136-145)
[2019-08-23] MEDS ORDERED: NS 1,000 ML IV ONE (08:00)
[2019-08-23] MEDS: amLODIPine 10 MG TAB PO SCH (09:00)
[2019-08-23] MEDS: METOPROLOL TART 50 MG TAB PO SCH ×2 (09:00→20:42)
[2019-08-23] MEDS: NICOTINE 21MG/24HR 1 EA TRANSDERMAL TD SCH (10:19)
[2019-08-23] MEDS: TAMSULOSIN 0.4 MG CAP PO SCH (10:20)
[2019-08-23] MEDS: FOLIC ACID 1 MG TAB PO SCH (10:21)
[2019-08-23] MEDS: BACTRIM 160MG/800MG DS TAB PO SCH ×2 (10:21→20:40)
[2019-08-23] MEDS: THIAMINE 100 MG TAB PO SCH (10:21)
[2019-08-23] MEDS: VITAMIN D (CHOLECALCIFEROL) 400 INTERNATIONAL UNITS TAB PO SCH (10:21)
[2019-08-23] MEDS: ASPIRIN 81 MG ENTERIC TAB PO SCH (10:21)
[2019-08-23] MEDS: busPIRone 10 MG TAB PO SCH ×2 (10:21→20:41)
[2019-08-23] MEDS ORDERED: traMADol 50 MG TAB PO PRN (16:45)
[2019-08-23] MEDS ORDERED: MORPHINE 4 MG/ML 1ML VIAL/SYRINGE (J2270) IV PRN (17:15)
[2019-08-23] MEDS ORDERED: LORazepam 2 MG/ML VIAL (J2060) IV PRN (17:15)
[2019-08-23] MEDS ORDERED: SCOPOLAMINE 1MG TRANSDERMAL PATCH TOP PRN (17:15)
[2019-08-23] MEDS: ATORVASTATIN 20 MG TAB PO SCH (20:40)
[2019-08-23] MEDS: FINASTERIDE 5 MG TAB PO SCH (20:41)
[2019-08-23] MEDS: PARoxetine 10MG TABLET PO SCH (20:41)
[2019-08-23] MEDS: MORPHINE 15 MG SA TAB PO SCH (20:41)
[2019-08-23] MEDS: BENZOCAINE 10% 9GM TUBE (ANBESOL) TOP PRN (21:20)
[2019-08-23] MEDS: IPRATROPIUM 0.5MG/ALBUTEROL 2.5MG INH SOL UD 3ML (DUONEB)(J7620) NEB PRN (23:25)
[2019-08-24] MEDS: ACETAMINOPHEN TAB 650MG DOSE (2X325MG) PO PRN (01:26)
[2019-08-24] MEDS: IPRATROPIUM 0.5MG/ALBUTEROL 2.5MG INH SOL UD 3ML (DUONEB)(J7620) NEB SCH ×4 (01:26→20:03)
[2019-08-24] MEDS: NYSTATIN 500,000 U/5 ML SUSP UDC SS SCH ×4 (01:56→20:30)
[2019-08-24] MEDS: NORCO, ANEXSIA 5/325MG TABLET (HYDROcodone/ACETAMINOPHEN) PO PRN ×2 (02:39→10:51)
[2019-08-24] MEDS ORDERED: LORazepam 2 MG/ML VIAL (J2060) IM STA (03:50)
[2019-08-24] MEDS ORDERED: LORazepam 2 MG/ML VIAL (J2060) IV STA (03:57)
[2019-08-24] MEDS: HEPARIN SOD (PORCINE) 5000 UNITS/ML VIAL SC SCH (05:41)
[2019-08-24] MEDS: FOLIC ACID 1 MG TAB PO SCH (10:30)
[2019-08-24] MEDS: TAMSULOSIN 0.4 MG CAP PO SCH (10:30)
[2019-08-24] MEDS: BACTRIM 160MG/800MG DS TAB PO SCH (10:30)
[2019-08-24] MEDS: ASPIRIN 81 MG ENTERIC TAB PO SCH (10:30)
[2019-08-24] MEDS: VITAMIN D (CHOLECALCIFEROL) 400 INTERNATIONAL UNITS TAB PO SCH (10:31)
[2019-08-24] MEDS: busPIRone 10 MG TAB PO SCH ×2 (10:31→21:45)
[2019-08-24] MEDS: THIAMINE 100 MG TAB PO SCH (10:31)
[2019-08-24] MEDS: amLODIPine 10 MG TAB PO SCH (10:33)
[2019-08-24] MEDS: MORPHINE 15 MG SA TAB PO SCH ×2 (10:33→21:46)
[2019-08-24] MEDS: METOPROLOL TART 50 MG TAB PO SCH ×2 (10:34→21:00)
[2019-08-24] MEDS: NICOTINE 21MG/24HR 1 EA TRANSDERMAL TD SCH (10:34)
[2019-08-24] MEDS: ONDANSETRON 4 MG TAB (S0181) PO PRN (10:49)
[2019-08-24] MEDS: IPRATROPIUM 0.5MG/ALBUTEROL 2.5MG INH SOL UD 3ML (DUONEB)(J7620) NEB PRN (11:00)
[2019-08-24] MEDS ORDERED: MORPHINE 4 MG/ML 1ML VIAL/SYRINGE (J2270) IV PRN (11:00)
--- NOTE | 2019-08-24 13:30 | IPNPDOC ---
Text Note Date of Service The patient was seen on 08/24/19. NOTE Subjective: Patient is a 73-year-old male with a PMHx of Squamous cell lung CA (Stage IIIB - Life expectancy 15% over 5 years), HTN, PVD s/p R BKA, COPD, Tongue / Gum CA (s/p Surgery), CKD3, Alcoholic liver disease who presented to the ER with complaints of shortness of breath and confusion. Patient was suspected of having a UTI based on urinalysis results and was started on antibiotics. His confusion had improved throughout the hospitalization, however not to baseline. Further imaging modalities (ie. Brain MRI) were discussed with patient and HCP (Julieth), however were not pursed at family request. Patient continued with antibiotics for a UTI. Goals of care were discussed with the patient and HCP on 08/23/2019 after he was requesting more pain medications for relief of his back and generalized body pains. Patient had reported to myself and his girlfriend / HCP (Julieth) that he did not want to pursue chemotherapy anymore. Julieth has expressed that at this time that they would like to transition his care to comfort measures. MOLST form was updated on 08/23/2019 to reflect DNR / DNI and Comfort Measures Only. Patient was seen and examined at the bedside. Appears to have some pain generalized throughout body that he reports as a 9/10. Still reports shortness of breath and persistent cough. 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 Bojorquez on 08/24 - Patient and HCP currently have expressed that they will not be continuing with chemotherapy - Expressed that their goal now is to get Mr. Gao home with hospice - Hospice consult placed with hopes that patient can be transitioned home with hospice - Expressed to family that 21/05 care will need to be established - Will continue with pain control, anxiety relief and discontinue non-essential medications - c/w ALC status VS,Fishbone, I+O VS, Fishbone, I+O Vital Signs Date Time Temp Pulse Resp B/P (MAP) Pulse Ox O2 Delivery O2 Flow Rate FiO2 08/24/19 11:21 18 08/23/19 20:42 120 117/68 08/23/19 06:00 99.2 88 Room Air 08/20/19 06:00 1.0 I&O- Last 24 Hours up to 6 AM 08/24/19 06:00 Intake Total 1036 ml Output Total 0 ml Balance 1036 ml KIARRA FINLEY MD Aug 24, 2019 13:30
[2019-08-24 20:19] VITALS: BP 110/63
[2019-08-25] MEDS: IPRATROPIUM 0.5MG/ALBUTEROL 2.5MG INH SOL UD 3ML (DUONEB)(J7620) NEB SCH ×4 (01:38→20:21)
[2019-08-25] MEDS: IPRATROPIUM 0.5MG/ALBUTEROL 2.5MG INH SOL UD 3ML (DUONEB)(J7620) NEB PRN ×2 (01:57→06:06)
[2019-08-25] MEDS: NORCO, ANEXSIA 5/325MG TABLET (HYDROcodone/ACETAMINOPHEN) PO PRN (01:58)
[2019-08-25] MEDS: NYSTATIN 500,000 U/5 ML SUSP UDC SS SCH ×5 (02:30→21:24)
[2019-08-25] MEDS ORDERED: LORazepam 2 MG TAB PO PRN (10:15)
[2019-08-25] MEDS: busPIRone 10 MG TAB PO SCH ×2 (10:31→19:57)
[2019-08-25] MEDS: MORPHINE 15 MG SA TAB PO SCH ×2 (10:32→20:37)
[2019-08-25] MEDS: METOPROLOL TART 50 MG TAB PO SCH ×2 (10:32→19:57)
[2019-08-25] MEDS: TAMSULOSIN 0.4 MG CAP PO SCH (10:32)
[2019-08-25] MEDS: NICOTINE 21MG/24HR 1 EA TRANSDERMAL TD SCH (10:32)
[2019-08-25] MEDS: MORPHINE 10MG/0.5ML ORAL CONCENTRATE SOLUTION U/D SL PRN ×2 (12:25→16:30)
[2019-08-25] MEDS: LORazepam 2 MG TAB PO PRN ×3 (14:20→18:50)
[2019-08-26] MEDS: IPRATROPIUM 0.5MG/ALBUTEROL 2.5MG INH SOL UD 3ML (DUONEB)(J7620) NEB SCH ×4 (01:25→20:00)
[2019-08-26] MEDS: NYSTATIN 500,000 U/5 ML SUSP UDC SS SCH ×2 (02:30→08:30)
[2019-08-26] MEDS: MORPHINE 10MG/0.5ML ORAL CONCENTRATE SOLUTION U/D SL PRN ×3 (03:07→17:26)
[2019-08-26] MEDS: LORazepam 2 MG TAB PO PRN (04:13)
[2019-08-26] MEDS: TAMSULOSIN 0.4 MG CAP PO SCH (09:00)
[2019-08-26] MEDS: METOPROLOL TART 50 MG TAB PO SCH ×2 (09:00→20:50)
[2019-08-26] MEDS: MORPHINE 15 MG SA TAB PO SCH ×2 (09:00→20:51)
[2019-08-26] MEDS: busPIRone 10 MG TAB PO SCH ×2 (09:00→20:50)
[2019-08-26] MEDS: NICOTINE 21MG/24HR 1 EA TRANSDERMAL TD SCH (09:00)
[2019-08-27] MEDS: MORPHINE 10MG/0.5ML ORAL CONCENTRATE SOLUTION U/D SL PRN ×2 (00:26→08:58)
[2019-08-27] MEDS: IPRATROPIUM 0.5MG/ALBUTEROL 2.5MG INH SOL UD 3ML (DUONEB)(J7620) NEB SCH ×3 (02:00→13:29)
[2019-08-27] MEDS: METOPROLOL TART 50 MG TAB PO SCH ×2 (09:00→21:00)
[2019-08-27] MEDS: MORPHINE 15 MG SA TAB PO SCH ×2 (09:00→21:00)
[2019-08-27] MEDS: busPIRone 10 MG TAB PO SCH ×2 (09:00→21:00)
[2019-08-27] MEDS: NICOTINE 21MG/24HR 1 EA TRANSDERMAL TD SCH (09:00)
[2019-08-27 21:00] VITALS: BP 94/59
[2019-08-28] MEDS: MORPHINE 10MG/0.5ML ORAL CONCENTRATE SOLUTION U/D SL PRN ×3 (04:33→21:22)
[2019-08-28] MEDS: busPIRone 10 MG TAB PO SCH ×2 (08:15→21:00)
[2019-08-28] MEDS: MORPHINE 15 MG SA TAB PO SCH ×2 (08:16→21:00)
[2019-08-28] MEDS: METOPROLOL TART 50 MG TAB PO SCH ×2 (08:16→21:00)
[2019-08-28] MEDS: NICOTINE 21MG/24HR 1 EA TRANSDERMAL TD SCH (08:16)
[2019-08-29] MEDS: METOPROLOL TART 50 MG TAB PO SCH ×2 (08:19→21:00)
[2019-08-29] MEDS: busPIRone 10 MG TAB PO SCH ×2 (08:19→21:00)
[2019-08-29] MEDS: MORPHINE 15 MG SA TAB PO SCH ×2 (08:19→21:00)
[2019-08-29] MEDS: NICOTINE 21MG/24HR 1 EA TRANSDERMAL TD SCH (08:20)
[2019-08-29] MEDS: MORPHINE 10MG/0.5ML ORAL CONCENTRATE SOLUTION U/D SL PRN ×3 (12:34→23:10)
--- NOTE | 2019-08-29 18:13 | IPNPDOC ---
Date Seen The patient was seen on 08/29/19. Progress Note SUBJECTIVE: Patient seen today laying in bed and peacefully sleeping. He does not appear in any acute distress. He has no complaints at this time. He appears cachectic. 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 Appears pain well managed Disposition: Placement in hospice house or home with hospice. VS, I&O, 24H, Fishbone Vital Signs/I&O Vital Signs Date Time Temp Pulse Resp B/P (MAP) Pulse Ox O2 Delivery O2 Flow Rate FiO2 08/29/19 09:00 2.0 08/28/19 21:22 20 08/27/19 21:00 113 94/59 08/26/19 03:40 Nasal Cannula 08/23/19 06:00 99.2 88 I&O- Last 24 Hours up to 6 AM 08/29/19 06:00 Intake Total 0 ml Output Total 0 ml Balance 0 ml GME ATTESTATION GME ATTESTATION I saw and evaluated the patient. I agree with the findings and plan of care as documented in the above note TAQUERIA VARELA MD Aug 29, 2019 18:13 EUGENIA TRUJILLO MD Aug 30, 2019 10:55
[2019-08-30] MEDS: MORPHINE 10MG/0.5ML ORAL CONCENTRATE SOLUTION U/D SL PRN (06:51)
[2019-08-30] MEDS: NICOTINE 21MG/24HR 1 EA TRANSDERMAL TD SCH (07:57)
--- NOTE | 2019-08-30 17:30 | IPNPDOC ---
Date Seen The patient was seen on 08/30/19. Progress Note NOTE CAUSE OF : Primary: Squamous Cell Carcinoma of the lung Secondary: Cardiac Arrest HOSPITAL COURSE: Patient was admitted on August 15, 2019 with altered mental status and dysuria from his assisted living facility in the setting of ongoing chemotherapy and radiation treatments. The patient had reported he was seeing things that were not there and was hearing voices and being told to hurt people in his home. He was resuscitated appropriately but his mentation did not return to baseline. Patient was found to have a UTI and was treated for it with IV antibiotics. His altered mental state was attributed most likely to pain medication versus UTI versus stroke pathology versus metastasis to his brain. The patient's mentation somewhat improved with IV antibiotics for UTI. The patient and family refused further workup, including MRI brain, to find etiology of his altered mental status. The patient's health care proxy, his partner Samantha, chose to make the patient comfort measures only and the patient passed peacefully August at 1629. The patient's health care proxy was made aware of his at that time. VS, I&O, 24H, Fishbone Vital Signs/I&O Vital Signs Date Time Temp Pulse Resp B/P (MAP) Pulse Ox O2 Delivery O2 Flow Rate FiO2 08/29/19 09:00 2.0 08/28/19 21:22 20 08/27/19 21:00 113 94/59 08/26/19 03:40 Nasal Cannula I&O- Last 24 Hours up to 6 AM 08/30/19 06:00 Intake Total 0 ml Output Total 0 ml Balance 0 ml GME ATTESTATION GME ATTESTATION This note to be reclassified as a summary I saw and evaluated the patient. I agree with the findings and plan of care as documented in the documenters note. I spent 15 minutes coordinating this patient's disposition TAQUERIA VARELA MD Aug 30, 2019 17:30 EUGENIA TRUJILLO MD Aug 31, 2019 11:06
== END 2019-08-30 18:23 | disposition expired | DRG 70 ==
LOC: M ED 19:17 → M ED INP 23:35 → M MS5PR 08-16 01:15 → M MSPAV 08-17 16:30
PROVIDERS: ADMIT Internal Medicine; ATTEND Internal Medicine
DX: G93.41 Metabolic encephalopathy (principal); I63.59 Cerebral infarction due to unspecified occlusion or stenosis of other cerebral artery; N39.0 Urinary tract infection, site not specified; C34.12 Malignant neoplasm of upper lobe, left bronchus or lung; E46 Unspecified protein-calorie malnutrition; I24.8 Other forms of acute ischemic heart disease; R64 Cachexia; C79.31 Secondary malignant neoplasm of brain; F32.9 Major depressive disorder, single episode, unspecified; I12.9 Hypertensive chronic kidney disease with stage 1 through stage 4 chronic kidney disease, or unspecified chronic kidney disease; Z51.5 Encounter for palliative care; Z66 Do not resuscitate; K70.9 Alcoholic liver disease, unspecified; R33.9 Retention of urine, unspecified; I73.9 Peripheral vascular disease, unspecified; F17.210 Nicotine dependence, cigarettes, uncomplicated; I25.10 Atherosclerotic heart disease of native coronary artery without angina pectoris; F41.9 Anxiety disorder, unspecified; E55.9 Vitamin D deficiency, unspecified; N18.3 Chronic kidney disease, stage 3 (moderate); N40.1 Benign prostatic hyperplasia with lower urinary tract symptoms; J44.9 Chronic obstructive pulmonary disease, unspecified; Z79.82 Long term (current) use of aspirin; Z79.899 Other long term (current) drug therapy; Z88.5 Allergy status to narcotic agent; Z89.511 Acquired absence of right leg below knee

== ENCOUNTER → 2019-08-15 | Outpatient (CLI) | payer OTHER, SELFPAY ==
--- NOTE | 2019-08-15 09:24 | PFTRPT ---
Height: 68.00 Inches Weight: 135.00 Lbs BSA: 1.73 Diagnosis: C34.12 DATE OF STUDY: 08/15/2019 ORDERED BY: Dr. Alvarenga Spirometry: Pre and post bronchodilator study of excellent technical quality. Markedly suboptimal performance of the required maneuvers noted. Forced vital capacity severely reduced. FEV1 is out of proportion. Obstructive index is, therefore, reduced. Flow Volume Loop: Expiratory limb of the flow volume loop suggests markedly suboptimal performance with the required maneuver. There is a documented improvement post bronchodilator, but clinical correlation with that finding will be necessary. Patient was unable to perform many of the required maneuvers. Lung Volumes: Slow vital capacity is generally in proportion. IMPRESSION: Cannot rule out some degree of bronchodilator response from a nonspecific flow rate limitation, but difficulty with required maneuvers hampers data aquisition. Clinical correlation with the above will be necessary. [facility]
== END ==
LOC: M CARPUL 08:33
PROVIDERS: ATTEND Radiology Radiation Oncology
DX: C34.12 Malignant neoplasm of upper lobe, left bronchus or lung (principal)

== ENCOUNTER → 2019-08-15 | Outpatient (CLI) | payer OTHER ==
--- NOTE | 2019-08-15 10:25 | REP ---
Two-view chest: 08/16/2019. Indication: Dyspnea. Lung carcinoma. Comparison: 07/28/2019. Findings: There has been development of air space consolidation within the right lower lobe. The large left upper lobe opacity is unchanged. Diffuse emphysematous and fibrotic changes are unchanged. New small right pleural effusion is present. There is no pneumothorax. Impression: New right lower lobe pneumonia and small right pleural effusion. Otherwise stable exam. Electronically Signed by French Oliver DO 08/15/2019 10:16 A
--- NOTE | 2019-08-15 12:04 | REP ---
DIFFERENTIAL V/Q LUNG SCAN: HISTORY: Lung cancer. TECHNIQUE: 1.0 mCi technetium 99m MAA is given intravenously for the perfusion portion of the exam and is followed by 2.0 mCi dose of technetium-99m DTPA aerosol for the ventilation study. Anterior and posterior images are acquired for each portion of the study and these are divided into upper mid and lower thirds for "segmental" differential analysis. This segmental data is available on the PACS system. FINDINGS: There is a spotty heterogeneous perfusion uptake is seen bilaterally consistent with advanced COPD changes. Overall differential lung function for the perfusion exam is 58% left 42% right for the ventilation study 62% left, 38% right. Electronically Signed by Carlos Duffy MD 08/15/2019 07:39 P
== END ==
LOC: M RAD 09:32
PROVIDERS: ATTEND Radiology Radiation Oncology
DX: J18.1 Lobar pneumonia, unspecified organism (principal); J90 Pleural effusion, not elsewhere classified; C34.12 Malignant neoplasm of upper lobe, left bronchus or lung